=== PATIENT | female | born 1930 | race Caucasian/White ===

== ENCOUNTER 2016-12-20 15:22 | Inpatient (IN) | payer MEDICARE, BC ==
[2016-12-20 16:09] LABS: HEMATOCRIT 43.2 % (36.0-48.0); HEMOGLOBIN 14.8 g/dL (12.0-16.0); MEAN CELL VOLUME 87.6 fL (80.0-100.0); MEAN CORPUS. HGB CONCENTRATION 34.2 g/dL (32.0-36.0); MEAN PLATELET VOLUME 9.7 fL (7.4-10.4); PLATELET COUNT 216 X 10^3uL (130-440); RED BLOOD COUNT 4.93 X 10^6uL (4.20-6.10); RED CELL DISTRIBUTION WIDTH 12.7 % (11.5-14.5); WHITE BLOOD COUNT 6.4 X 10^3uL (3.9-10.7)
[2016-12-20 16:10] LABS: BLOOD UREA NITROGEN 19 mg/dL (7-17); CALCIUM 9.3 mg/dL (8.4-10.2); CHLORIDE 110 mmol/L (98-107); GLUCOSE 97 mg/dL (70-100); POTASSIUM 3.8 mmol/L (3.5-5.1); SODIUM 141 mmol/L (137-145)
[2016-12-20 16:11] LABS: INR 3.1
[2016-12-20] MEDS ORDERED: HOME MEDICATION LIST NEEDED 1 EA EACH MC ONE (16:16)
[2016-12-20] MEDS ORDERED: ACETAMINOPHEN 325 MG TABLET PO PRN (16:16)
--- NOTE | 2016-12-20 17:04 | ER PHYSICIAN DOCUMENTATION ---
Physician Documentation [facility] Name:Nicki Neri Age:86 yrs Sex:Female :1930 Arrival Date:12/20/2016 Time:15:22 Bed6 Private MD:Fiona Rondon ED, John Disposition: 12/20/16 16:14 Admit ordered for Christie Manning. Preliminary diagnosis is Femoral Neck Closed Fracture. - Bed requested for Medical/Surgical. - Condition is Fair. - Problem is new. - Symptoms are unchanged. 23 HR OBS Yes HPI: 12/20 15:54 This 86 yrs old Female presents to ER via EMS with complaints of Fall Injury, jm Hip Pain. 15:54 Details of fall: The patient fell from an upright position, while walking. Onset: The jm symptom(s)/episode began/occurred just prior to arrival. Associated injuries: The patient sustained right hip. Associated signs and symptoms: Loss of consciousness: the patient experienced no loss of consciousness. Severity of symptoms: At their worst the symptoms were mild. The patient has not experienced similar symptoms in the past. The patient has not recently seen a physician. Pt w mechanical fall after washing her windows and tripping on a hose. . Historical: - Allergies: No known drug Allergies; - Home Meds: 1. enalapril maleate 2.5 mg oral tab 1 tab 2 times per day 2. furosemide 20 mg oral tab 1 tab once a week 3. Synthroid 75 mcg oral tab 1 tab once daily 4. warfarin 5 mg oral tab 1 tab once daily 5. timolol maleate 0.25 % ophthalmic solg 1 drop once daily into both eyes 6. Xalatan 0.005 % ophthalmic drop 1 drop once daily in the evening - PMHx: TIA; Hypertension; ATRIAL FIB; hyperlipidemia; claustrophobia; diverticulosis; amnesia; cardiac dysrhythmias; bradycardia; - PSHx: Tonsillectomy; anal cyst Excision; vitrectomy; - Tetanus: < 10 years. - Ebola Screening: : Patient negative for fever greater than or equal to 101.5 degrees Fahrenheit, and additional compatible Ebola Virus Disease symptoms. Patient denies exposure to infectious person. Patient denies travel to an Ebola-affected area in the 21 days before illness onset. . - Immunization history: Pneumococcal vaccine is up to date, Flu Vaccine < 1 year. - Social history: Smoking status: Patient states former smoker of tobacco. ROS: 15:56 Cardiovascular: Negative for chest pain. jm 15:56 Respiratory: Negative for cough, shortness of breath. 15:56 Abdomen/GI: Negative for abdominal pain, nausea, vomiting. 15:56 MS/extremity: Positive for injury or acute deformity. 15:56 Skin: Negative for swelling. 15:56 Neuro: Negative for altered mental status. 15:56 All other systems are negative. Exam: 15:56 Constitutional: The patient appears alert, awake. jm 15:56 Eyes: Periorbital structures: appear normal, Conjunctiva: normal. 15:56 ENT: Mouth: is normal, Voice: is normal. 15:56 Neck: C-spine: appears grossly normal, Thyroid: appears normal. 15:56 Chest/axilla: Inspection: normal, Palpation: is normal. 15:56 Cardiovascular: Rate: normal, Rhythm: regular. 15:56 Respiratory: Respirations: normal, Breath sounds: are normal. 15:56 Abdomen/GI: Bowel sounds: normal, Palpation: abdomen is soft and non-tender. 15:56 Back: pain, is absent, vertebral tenderness, is not appreciated. 15:56 Musculoskeletal/extremity: Pulses: are normal with no appreciated deficits, Sensation intact. 15:56 Neuro: Mentation: is normal, Memory: is normal. 15:56 Psych: Behavior/mood is pleasant, cooperative, Affect is calm. Vital Signs: 15:37 BP 158 / 70; Pulse 69; Resp 16; Temp 98.7(TE); Pulse Ox 88% on R/A; Weight 89.81 kg; lp Height 5 ft. 10 in. (177.80 cm); Pain 1/10; 16:33 BP 163 / 87; Pulse 68; Resp 16; Pulse Ox 92% on 2 lpm NC; lp 15:37 Body Mass Index 28.41 (89.81 kg, 177.80 cm) lp MDM: 15:27 Patient medically screened. 15:57 Differential diagnosis: contusion, fracture. Data reviewed: vital signs, nurses notes, jm lab test result(s), EKG, radiologic studies, and as a result, I will admit patient, initiate a consult. Test interpretation: by ED physician or midlevel provider: plain radiologic studies. Counseling: I had a detailed discussion with the patient and/or guardian regarding: the historical points, exam findings, and any diagnostic results supporting the discharge/admit diagnosis, lab results, radiology results, the need for further work-up and treatment in the hospital. Physician consultation: Christie Manning MD regarding need to come to ED to see patient, and will see patient shortly, later today. 18:08 EKG attached 12/20 16:10 Order name: CBC WITHOUT A DIFFERENTIAL; Complete Time: 17:29 EDWI 12/20 16:12 Order name: BASIC METABOLIC PANEL; Complete Time: 17:29 EDWI 12/20 16:13 Order name: PROTIME/INR; Complete Time: 17:29 EDWI 12/20 19:05 Order name: HEPATIC PANEL [facility] 12/21 06:14 Order name: BASIC METABOLIC PANEL [facility] 12/21 06:20 Order name: PROTIME/INR [facility] 12/21 06:22 Order name: CBC AUTO DIF, MDIF/RMOR IF IND [facility] 12/21 16:06 Order name: INR W/ CAPI DRAW [facility] 12/21 22:37 Order name: INR W/ CAPI DRAW [facility] 12/22 06:06 Order name: PROTIME/INR [facility] 12/22 06:17 Order name: CBC AUTO DIF, MDIF/RMOR IF IND [facility] 12/22 06:49 Order name: COMPREHENSIVE METABOLIC PANEL [facility] 12/22 07:13 Order name: ABO GROUP [facility] 12/22 07:13 Order name: RH TYPE [facility] 12/22 07:13 Order name: ANTIBODY SCREEN [facility] 12/22 10:24 Order name: INR W/ CAPI DRAW [facility] 12/22 11:54 Order name: INR W/ CAPI DRAW [facility] 12/21 07:34 Order name: CHEST; SINGLE VIEW [id number] [facility] 12/21 07:34 Order name: HIP;W/PEL 2-[address] [place] [id number] [facility] 12/20 15:54 Order name: 12-lead EKG; Complete Time: 16:19 12/20 16:57 Order name: Holt; Complete Time: 16:57 rh Dispensed Medications: No medications were administered Signatures: Sade Loyola RN RN Morteza Lam MD MD Krystle Mark
--- NOTE | 2016-12-20 17:04 | ER NURSING DOCUMENTATION ---
Nurse's Notes [facility] Name:Nicki Neri Age:86 yrs Sex:Female :1930 Arrival Date:12/20/2016 Time:15:22 Bed6 Private MD:Fiona Rondon Diagnosis:Femoral Neck Closed Fracture Presentation: 12/20 15:29 Presenting complaint: Patient states: Fell after getting tangled in hose onto right lp hip. Transition of care: Home. Notified ED Physician of Jhonny Jones notified. 15:29 Acuity: JERONIMO 3 lp 15:29 Method Of Arrival: EMS: 410 lp Triage Assessment: 15:36 General: Appears in no apparent distress, Behavior is appropriate for age. Pain: lp Complains of pain in right hip Pain currently is 1 out of 10 on a pain scale. At worst was 6 out of 10 on a pain scale. Alleviated by rest. EENT: No deficits noted. Neuro: No deficits noted. Cardiovascular: No deficits noted. Respiratory: No deficits noted. GI: No deficits noted. : No deficits noted. Derm: No deficits noted. Musculoskeletal: Circulation, motion, and sensation intact Capillary refill < 3 seconds Range of motion limited in right hip. Historical: - Allergies: No known drug Allergies; - Home Meds: 1. enalapril maleate 2.5 mg oral tab 1 tab 2 times per day 2. furosemide 20 mg oral tab 1 tab once a week 3. Synthroid 75 mcg oral tab 1 tab once daily 4. warfarin 5 mg oral tab 1 tab once daily 5. timolol maleate 0.25 % ophthalmic solg 1 drop once daily into both eyes 6. Xalatan 0.005 % ophthalmic drop 1 drop once daily in the evening - PMHx: TIA; Hypertension; ATRIAL FIB; hyperlipidemia; claustrophobia; diverticulosis; amnesia; cardiac dysrhythmias; bradycardia; - PSHx: Tonsillectomy; anal cyst Excision; vitrectomy; - Tetanus: < 10 years. - Ebola Screening: : Patient negative for fever greater than or equal to 101.5 degrees Fahrenheit, and additional compatible Ebola Virus Disease symptoms. Patient denies exposure to infectious person. Patient denies travel to an Ebola-affected area in the 21 days before illness onset. . - Immunization history: Pneumococcal vaccine is up to date, Flu Vaccine < 1 year. - Social history: Smoking status: Patient states former smoker of tobacco. Screenin:38 Infectious Disease Risk None. Abuse screen: Denies threats or abuse. Denies injuries lp from another. Nutritional screening: No deficits noted. Assessment: 15:38 See Triage Assessment done by same RN. lp Vital Signs: 15:37 BP 158 / 70; Pulse 69; Resp 16; Temp 98.7(TE); Pulse Ox 88% on R/A; Weight 89.81 kg; lp Height 5 ft. 10 in. (177.80 cm); Pain 1/10; 16:33 BP 163 / 87; Pulse 68; Resp 16; Pulse Ox 92% on 2 lpm NC; lp 15:37 Body Mass Index 28.41 (89.81 kg, 177.80 cm) lp ED Course: 15:25 Patient arrived in ED. jl 15:25 Fiona Rondon MD is Private Physician. jl 15:27 Morteza Barry MD is Attending Physician. roxy 15:28 Sade Loyola RN is Primary Nurse. lp 15:29 Triage completed. lp 15:[address] Barry notified. lp 15:38 Valuables Remains with patient Patient has correct armband on for positive lp identification. Placed in gown. Bed in low position. Call light in reach. Side rails up X 1. 15:38 Inserted peripheral IV: 18 gauge in right antecubital area and blood collected. lp 16:14 Christie Manning MD is Admitting Physician. 16:14 EKG done. (by ED staff). Reviewed by Morteza Barry MD. 18:08 EKG attached lp Administered Medications: No medications were administered Outcome: 16:14 Decision to Admit by Provider. 17:02 Admitted to Med/surg accompanied by nurse. lp 17:02 Condition: stable 17:02 Report given to Report given to Anthony RN 17:02 Instructed on need to admit 17:03 Patient left the ED. lp Signatures: Sade Loyola, RN RN Morteza Lam MD MD jm Hofsess, Rachel rh Lietz, Jeff jl
[2016-12-20] MEDS: ONDANSETRON HCL 4 MG/2 ML VIAL IV PRN (18:19)
[2016-12-20] MEDS: MORPHINE SULFATE 2 MG/ML SYR IV PRN (18:19)
[2016-12-20] MEDS: NORMAL SALINE 1,000 ML IV SCH (18:19)
--- NOTE | 2016-12-20 18:23 | RADIOLOGY REPORT ---
A limited single portable view of the chest is compared with prior film dated . The heart and vessels are stable and unremarkable. The lung jeter are clear. No infiltrate, fluid or pneumothorax is seen. IMPRESSION: Stable, unremarkable single portable view of the chest. MTDD
--- NOTE | 2016-12-20 18:24 | RADIOLOGY REPORT ---
Three views of the right hip demonstrate acute right femoral neck fracture with superior displacement and external rotation. The joint space is maintained. No other abnormality is identified. IMPRESSION: Right femoral neck fracture. MTDD
[2016-12-20 19:03] LABS: BILIRUBIN, DIRECT 0.2 mg/dL (0.0-0.4); BILIRUBIN, TOTAL 0.8 mg/dL (0.2-1.3)
[2016-12-20] MEDS ORDERED: LATANOPROST 0.005% EACHEYE SCH (20:00)
[2016-12-20] MEDS ORDERED: ENALAPRIL MALEATE 5 MG TABLET PO SCH (21:00)
[2016-12-20] MEDS ORDERED: ATORVASTATIN CALCIUIM 40 MG TABLET PO SCH (21:00)
[2016-12-20] MEDS ORDERED: PILOCARPINE 1% OPHTHALMIC SCH (21:00)
[2016-12-20] MEDS: BRIMONIDINE 0.1% EACHEYE SCH (21:48)
[2016-12-20] MEDS: TIMOLOL 0.25% EACHEYE SCH (21:49)
[2016-12-20] MEDS: DORZOLAMIDE 2% OPHTHALMIC SCH (21:49)
--- NOTE | 2016-12-21 04:41 | HISTORY & PHYSICAL ---
DATE OF ADMISSION: 12/20/16 PRIMARY CARE PROVIDER: Dr. Fiona Rondon. CHIEF COMPLAINT: Fall. HISTORY OF PRESENT ILLNESS: This is an 86-year-old white female with multiple medical problems, who fell while washing her windows at home. She tripped on a hose when she was backing up wearing sandals and landed directly onto her right hip. She broke her fall with her right forearm but did not suffer any other injuries. No closed head injury, no loss of consciousness. She states that she was only able to barely move her right lower extremity and was eventually able to sit up and then call for help. She was on the ground for approximately 45-60 minutes. She was brought in by ambulance. The pain of her right lower extremity is described as a dull ache as if she had some muscles being pulled. She did not have any precedent chest pain, shortness of breath, or palpitations. Later during her history, she developed significant right hip pain with associated nausea. Pain and antinausea medications were given. REVIEW OF SYSTEMS: No fevers, chills or sweats. Chronic runny nose. No postnasal drainage. Mild cough. No palpitations. No chest pain or shortness of breath. No history of congestive heart failure. She has chronic left ankle pain secondary to multiple sprains. She generally wears support stockings. No dysuria, no hematuria, no bloody stools. No headaches. She does have a history of glaucoma and takes multiple eye drops. She has the beginnings of macular degeneration. 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 No abdominal pain. No vomiting. No diarrhea. She did have a bowel movement today. She had a fall in her garage 2-3 months ago with no injuries. PAST MEDICAL HISTORY 1. Hypertension. 2. History of TIAs in 1995 and 1999. 3. Atrial fibrillation with a controlled ventricular response. Sick sinus syndrome. 4. Hypothyroidism. 5. Hyperlipidemia. 6. Ductal carcinoma in situ of breast. 7. Osteophyte fracture, left first metacarpal with associated severe degenerative arthritis. 8. Glaucoma. 9. Anxiety disorder with claustrophobia. 10. History of transient global amnesia. 11. Microscopic hematuria. 12. Venous insufficiency. 13. Osteopenia. 14. History of polymyalgia rheumatica. 15. Chronic renal insufficiency. PAST SURGICAL HISTORY 1. Vitrectomy after failed laser treatment for retinal lesion, left eye in 1994. 2. Anal cyst excision. 3. Tonsillectomy. MEDICATIONS Enalapril 2.5 mg twice daily. Furosemide 20 mg weekly. Calcium with vitamin D daily. Synthroid 75 mcg daily. Coumadin 5 mg daily except 7.5 mg Sunday, Sunday, Sunday. Glucosamine chondroitin complex. Timolol maleate 0.25% one drop daily. Xalatan 0.05% as directed daily. Alphagan P as directed daily. Atorvastatin 40 mg daily. Coombs concentrate 2 capsules daily. Lantanoprost 0.005% one drop daily. PreserVision areds 2 one tablet twice daily. Azopt 1% suspension 3 drops daily. Pilocar 4 times daily. ALLERGIES: Bee sting. Nonsteroidal anti-inflammatories caused increased LFTs. Preservatives in eye drops causing burning and irritation. Sulfa: question prior allergy. SOCIAL HISTORY: She is now . She lives alone. Rare alcohol use. No drug use. She has never been a smoker. She has a daughter Kathy who lives in [place]. She is full cor. FAMILY HISTORY: Her dad at the age of 84, had a cerebrovascular accident at the age of 67 and had an underlying history of hypertension and congestive heart failure. Mom at the age of 62 with pancreatic cancer. Sister with a history of colon cancer. She also has an unusual form of multiple sclerosis and is wheelchair bound. LABORATORY DATA: CBC shows a white count of 6.4, hemoglobin 14.8, hematocrit 43.2, platelets 216. Basic metabolic panel: Chloride 110, bicarbonate 21, BUN 19, otherwise normal. Protime is 37.1 and INR is 3.1. EKG: Shows normal sinus rhythm, bradycardia, heart rate of 55, left axis deviation, left anterior fascicular block, no acute ST-T wave changes. CHEST X-RAY: Done in the emergency room; will review. HIP X-RAY: Shows right femoral neck closed fracture. PHYSICAL EXAMINATION VITAL SIGNS: In the emergency room temperature is 98.7, pulse 69, respiratory rate 16, blood pressure 158/70, 88% on room air and 92% on 2 liters per nasal cannula. GENERAL: This is a very pleasant female who is initially in no apparent distress. She later developed significant right lower extremity pain. HEENT: Her sclerae are clear. Her pupils are equal, round, reactive to light. Her extraocular movements are intact. Her nares are clear. Her oropharynx is clear. NECK: Her neck is obese and difficult to assess JVD. No carotid bruits. No lymphadenopathy. LUNGS: Fairly good aeration anterolaterally. I was not able to sit the patient up to listen posteriorly. HEART: Bradycardic, regular rhythm without any murmurs, rubs or gallops. ABDOMEN: Obese, soft, nontender, nondistended with good bowel sounds and no mass or hepatosplenomegaly. EXTREMITIES: Right lower extremity is externally rotated and shortened. She has trace to 1+ pedal and pretibial edema with good dorsalis pedis and posterior tibial pulses bilaterally. NEUROLOGIC: Alert and oriented times 3. Cranial nerves 2 through 12 are grossly intact without any focal deficits. Her motor, sensation and DTRs are intact. However, motor and DTRs are not checked of right lower extremity secondary to fracture. ASSESSMENT: This is an 86-year-old female who presents after a fall with femoral neck closed fracture. PLAN 1. Fluids, electrolytes and nutrition. Will keep n.p.o. after midnight for surgery tomorrow. Her electrolytes are stable. IV fluids. Antiemetics for nausea. 2. Cardiovascular. The patient with significant cardiac history including sick sinus syndrome with both atrial fibrillation and bradycardia. She is currently being anticoagulated with a therapeutic INR. Her EKG does not show any acute changes. She also has a history of hypertension, hyperlipidemia and prior TIA. Her EKG is without acute changes. I appreciate anesthesia input and I have spoken with Elisa Bolanos on the phone. 3. Respiratory. The patient without any known underlying pulmonary issues. She is a lifetime nonsmoker. I will review the chest x-ray. She is currently requiring 2 liters of oxygen. 4. Renal. The patient with history of renal insufficiency. However, her creatinine is stable today at 1.0. 5. Infectious disease. Will check urinalysis and urine culture. 6. Disposition. The patient is admitted for surgical repair of femoral fracture. She is medically cleared. She is a full cor status. Anticipate that she will need a swing bed stay after her operation. cc: Dr. Fiona Rondon; Dr. Camron Iqbal. [facility]uben
[2016-12-21] MEDS: MORPHINE SULFATE 2 MG/ML SYR IV PRN ×3 (06:00→16:00)
[2016-12-21 06:09] LABS: BLOOD UREA NITROGEN 14 mg/dL (7-17); CALCIUM 8.6 mg/dL (8.4-10.2); CHLORIDE 110 mmol/L (98-107); GLUCOSE 95 mg/dL (70-100); POTASSIUM 3.8 mmol/L (3.5-5.1); SODIUM 140 mmol/L (137-145)
[2016-12-21] MEDS: BRIMONIDINE 0.1% EACHEYE SCH ×3 (06:10→20:43)
[2016-12-21 06:14] LABS: INR 3.2
[2016-12-21 06:17] LABS: BASOPHILS 0.2 % (0.0-2.0); EOSINOPHILS 3.5 % (0.0-6.0); EOSINOPHILS# 0.3 X 10^3uL (0.0-0.4); HEMATOCRIT 39.3 % (36.0-48.0); HEMOGLOBIN 13.6 g/dL (12.0-16.0); LYMPHOCYTES# 0.6 X 10^3uL (0.8-3.8); MEAN CELL VOLUME 87.5 fL (80.0-100.0); MEAN CORPUS. HGB CONCENTRATION 34.5 g/dL (32.0-36.0); MEAN CORPUSCULAR HEMOGLOBIN 30.2 pg (29.0-35.0); MEAN PLATELET VOLUME 9.3 fL (7.4-10.4); MONOCYTES 7.4 % (2.0-10.0); MONOCYTES# 0.5 X 10^3uL (0.2-1.0); NEUTROPHILS 79.9 % (54.0-75.0); NEUTROPHILS# 5.8 X 10^3uL (2.6-6.7); PLATELET COUNT 156 X 10^3uL (130-440); RED BLOOD COUNT 4.49 X 10^6uL (4.20-6.10); RED CELL DISTRIBUTION WIDTH 12.8 % (11.5-14.5); WHITE BLOOD COUNT 7.2 X 10^3uL (3.9-10.7)
[2016-12-21] MEDS ORDERED: LEVOTHYROXINE 75 MCG TABLET PO SCH ×2 (06:30→09:00)
[2016-12-21] MEDS ORDERED: BRINZOLAMIDE 1% OPHTHALMIC SCH (09:00)
[2016-12-21] MEDS ORDERED: TIMOLOL 0.5% EACHEYE SCH (09:00)
[2016-12-21] MEDS ORDERED: BRIMONIDINE 0.1% OPHTHALMIC SCH (09:00)
[2016-12-21] MEDS ORDERED: FUROSEMIDE 20 MG TABLET PO SCH (09:00)
[2016-12-21] MEDS: POTASSIUM CHLORIDE ER 20 MEQ TABLET PO SCH (09:09)
[2016-12-21] MEDS: TIMOLOL 0.25% EACHEYE SCH (09:11)
[2016-12-21] MEDS: FUROSEMIDE 20 MG TABLET PO SCH (09:11)
[2016-12-21] MEDS ORDERED: PHYTONADIONE 10 MG/ML AMP PO SCH (10:00)
[2016-12-21] MEDS ORDERED: NORMAL SALINE 1,000 ML IV ONE (10:19)
[2016-12-21] MEDS: ATORVASTATIN CALCIUIM 40 MG TABLET PO SCH (12:10)
[2016-12-21] MEDS: ENALAPRIL MALEATE 5 MG TABLET PO SCH ×2 (12:11→20:43)
[2016-12-21] MEDS ORDERED: PHYTONADIONE 10 MG/ML AMP SUBCUT SCH (12:30)
--- NOTE | 2016-12-21 12:30 | PROGRESS NOTE: IM APSO ---
Assessment and Plan - Date of Encounter Date of Encounter: 12/21/16 (1) Fracture of femoral neck, right, closed Status: Acute Assessment and plan: Fall 12/20 with subsequent fracture of femoral neck needing surgical repair. Due to elevated INR (coumadin therapy for afib) will delay surgery until tomorrow with goal for reversing warfarin. Currently pain controlled and overall comfortable. Appreciate management by Dr. Iqbal. Patient was cleared for surgery by both anesthesia and Dr. Manning on 12/20. Due to age and living along- anticipate may need additional rehab (daughter will be coming to stay with mother for 2 months) Current Visit: Yes (2) Supratherapeutic INR Status: Acute Assessment and plan: On chronic anticoagulation related to atrial fibrillation/sick sinus syndrome. INR was 3.2 today despite holding coumadin last night. Will give SC Vitamin K for goals of reversal and repeat INR to monitor. Surgical cut off is 1.3 as anticipating spinal block. Will give dose of lovenox tonight ppx during bridge but need to hold all anticoagulation 12 hours from surgery, restart after. Today INR has gone from 3.2 to 3.3 despite the administration of 4mg SC Vitamin K. Will repeat with oral dose of Vitamin K and follow up INR 4 hours later. Current Visit: Yes (3) Afib Status: Chronic Assessment and plan: Currently stable and rate controlled. Is managed by cardiology with recent visit in October. Restart anticoagulation once able with surgery. Current Visit: Yes (4) Sick sinus syndrome Status: Chronic Assessment and plan: Currently stable, recent cardiology visit 10/2016. If any concerns may ask for consultation after surgery tomorrow when cardiology is in house. Current Visit: Yes (5) Hypertension Status: Chronic Assessment and plan: Stable, home medications ordered. Will monitor for hypotension with pain medication needs Current Visit: Yes (6) Hypothyroid Status: Chronic Assessment and plan: continue home dose medication Current Visit: Yes (7) Hyperlipemia Status: Chronic Assessment and plan: Continue home medication Current Visit: Yes (8) Glaucoma Status: Chronic Assessment and plan: Patient feels her eyes are her most significant health issues currently. Has partial site in one eye and normal vision in other. Will order her home eye drops for ongoing treatment. Current Visit: Yes (9) Anxiety Status: Acute Current Visit: Yes (10) Chronic renal insufficiency Status: Chronic Assessment and plan: Stable kidney function currently. continue to monitor with medication needs/ surgery Current Visit: Yes (11) Hypoxia Status: Acute Assessment and plan: Likely combination of narcotic use/decreased mobility/mouth breathing when sleeping- will continue supplemental oxygen as needed (specifically at night) as well as teach IS prior to surgery. Current Visit: Yes - Time Spent With Patient Total time spent with greater than 50% in coordination of care (as documented) at patient's floor/unit and/or counseling patient: Greater than 35 minutes Estimated anticipated discharge: 4 days or more IM: PN Subjective General: no fatigue, no good appetite, no fever, no chills HEENT: no headache, no sore throat Cardiovascular: no chest pain, no chest pressure, no palpitations, no dizziness Respiratory: other (admits to mouth breathing at night), no cough, no SOB Gastrointestinal: no abdominal pain, no vomiting, no constipation Genitourinary: no dysuria Musculoskeletal: pain (right leg), weakness Neurological: no headache IM: PN Objective Exam - I&O/Vital Signs I&O: Intake & Output 12/20/16 12/21/16 12/21/16 21:59 05:59 13:59 Intake Total 50 Output Total 200 750 Balance -150 -750 Weight 90.945 kg Intake: Oral 50 Output: Urine 200 750 Other: Urine Appearance Clear Urine Color Yellow Pale Yellow Voiding Method Indwelling Catheter Indwelling Catheter Vital Signs: Last Vital Signs Temp 37.1 C 12/21/16 11:00 Pulse 61 12/21/16 11:00 Resp 18 12/21/16 11:00 BP 146/88 12/21/16 11:00 Pulse Ox 90 12/21/16 12:03 Oxygen Flow Rate 2 Oxygen Delivery Method Nasal Cannula - Constitutional General appearance: Present: cooperative. Absent: acute distress - Head Head exam: Present: atraumatic, normal inspection, normocephalic - Eye Eye exam: Present: EOMI, normal appearance, other (glasses). Absent: conjunctival injection - ENT ENT exam: Present: mucous membranes moist, normal oropharynx - Neck Neck exam: Present: normal inspection. Absent: tenderness - Respiratory Respiratory exam: Present: CTAB. Absent: accessory muscle use - Cardiovascular Cardiovascular exam: Present: RRR, systolic murmur - GI/Abdominal GI/Abdominal exam: Present: soft. Absent: tenderness - Extremities Exam Extremities exam: Present: edema (bilateral but left (noninjured side) worse than right (chronic per patient)), tenderness (hip/femur). Absent: calf tenderness - Neurological Exam Neurological exam: Present: alert, CN II-XII intact, oriented X3 - Psychiatric Psychiatric exam: Present: normal affect, normal mood - Allied Health Notes Allied health notes reviewed: nursing - Lab Labs: Laboratory Last Values WBC 7.2 X 10^3uL (3.9-10.7) 12/21/16 05:05 RBC 4.49 X 10^6uL (4.20-6.10) 12/21/16 05:05 Hgb 13.6 g/dL (12.0-16.0) 12/21/16 05:05 Hct 39.3 % (36.0-48.0) 12/21/16 05:05 MCV 87.5 fL (80.0-100.0) 12/21/16 05:05 MCH 30.2 pg (29.0-35.0) 12/21/16 05:05 MCHC 34.5 g/dL (32.0-36.0) 12/21/16 05:05 RDW 12.8 % (11.5-14.5) 12/21/16 05:05 Plt Count 156 X 10^3uL (130-440) 12/21/16 05:05 MPV 9.3 fL (7.4-10.4) 12/21/16 05:05 Neutrophils % 79.9 % (54.0-75.0) H 12/21/16 05:05 Lymphocytes % 9.0 % (20.0-40.0) L 12/21/16 05:05 Eosinophils % 3.5 % (0.0-6.0) 12/21/16 05:05 Basophils % 0.2 % (0.0-2.0) 12/21/16 05:05 Neutrophils # 5.8 X 10^3uL (2.6-6.7) 12/21/16 05:05 Lymphocytes # 0.6 X 10^3uL (0.8-3.8) L 12/21/16 05:05 Monocytes 7.4 % (2.0-10.0) 12/21/16 05:05 Monocytes # 0.5 X 10^3uL (0.2-1.0) 12/21/16 05:05 Eosinophils # 0.3 X 10^3uL (0.0-0.4) 12/21/16 05:05 Basophils # 0.0 X 10^3uL (0.0-0.1) 12/21/16 05:05 PT 37.4 sec (13.0-16.6) H 12/21/16 05:05 INR 3.2 12/21/16 05:05 Sodium 140 mmol/L (137-145) 12/21/16 05:05 Potassium 3.8 mmol/L (3.5-5.1) 12/21/16 05:05 Chloride 110 mmol/L (98-107) H 12/21/16 05:05 Carbon Dioxide 24 mmol/L (22-30) 12/21/16 05:05 BUN 14 mg/dL (7-17) 12/21/16 05:05 Creatinine 0.8 mg/dL (0.5-1.0) 12/21/16 05:05 GFR Calculation Not Reportable 12/21/16 05:05 Glucose 95 mg/dL (70-100) 12/21/16 05:05 Calcium 8.6 mg/dL (8.4-10.2) 12/21/16 05:05 Total Bilirubin 0.8 mg/dL (0.2-1.3) 12/20/16 18:53 Direct Bilirubin 0.2 mg/dL (0.0-0.4) 12/20/16 18:53 AST 28 U/L (14-36) 12/20/16 18:53 ALT 36 U/L (9-52) 12/20/16 18:53 Alkaline Phosphatase 73 U/L (38-126) 12/20/16 18:53 Total Protein 7.0 g/dL (6.3-8.2) 12/20/16 18:53 Albumin 4.0 g/dL (3.5-5.0) 12/20/16 18:53 Impressions: INR 3.2- surgery delayed until can decrease INR Quality Questions - VTE Prophylaxis Assessment VTE Present on Admission?: No Patient at risk for venous thromboembolism?: Yes VTE Risk Level: High Risk Pharmaceutical VTE prophylaxis contraindication reason: N/A- VTE prophylaxsis ordered Mechanical VTE prophylaxis contraindication reason: N/A- VTE prophylaxsis ordered (5) Hypertension Qualifiers: Hypertension type: essential hypertension Qualified Code(s): I10 - Essential (primary) hypertension (8) Glaucoma Qualifiers: Laterality: bilateral
[2016-12-21] MEDS: PILOCARPINE HCL OPHTHALMIC SCH ×4 (12:57→20:43)
--- NOTE | 2016-12-21 13:11 | CONSULTATION ---
DATE OF CONSULTATION: 12/21/16 REFERRING PHYSICIAN: Dr. Barry. CHIEF COMPLAINT: Broken right hip. Dear Dr. Barry, Thank you for asking me to evaluate this patient. As you know she is an 86-year -old female who was working on her patio yesterday when she tripped over a hose and landed on her right side. She had immediate inability to ambulate with pain in the right hip area, and was later brought into the emergency department where radiographs revealed findings consistent with a displaced femoral neck fracture. She is therefore admitted for further management of her injury. She denies any other injuries associated with her fall. PAST MEDICAL HISTORY: Her past medical history is otherwise remarkable for 1. Atrial fibrillation. 2. Previous TIA although it has been many years. 3. Hyperlipidemia. 4. Hypothyroidism. 5. Chronic low back pain. MEDICATIONS Enalapril. Lasix. Calcium supplements. Synthroid. Coumadin. Timolol. Xalatan. ALLERGIES: The patient cannot take NSAIDs, and she is also allergic to sulfa and bee stings. FAMILY HISTORY: Noncontributory. SOCIAL HISTORY: The patient lives independently and is a nonsmoker. She reports rare alcohol use. REVIEW OF SYSTEMS: Review of systems is negative for any chest pain or shortness of breath. Likewise she did not have any history of syncopal or near syncopal episode associated with her fall. The review of systems is otherwise noncontributory. PHYSICAL EXAMINATION GENERAL: A well-appearing senior female in minimal distress secondary to pain, but alert and oriented times 3. RIGHT LOWER EXTREMITY: Physical examination of the right lower extremity reveals that she is slightly shortened and externally rotated. She is tender to palpation about the hip although we were very gentle with that part of the exam. She does have sensation intact throughout to light touch and a 2+ dorsalis pedis pulse. X-RAYS: Plain radiographs reveal a midcervical fracture of the right femoral neck, with displacement of the fracture consistent with a Garden IV fracture. IMPRESSION: Right femoral neck fracture as noted above. PLAN/RECOMMENDATIONS: We discussed the treatment and management of this injury with the patient. Clearly the standard of care for this injury will be arthroplasty of the right hip. Given her age and health we would plan on hemiarthroplasty of the right hip. Her INR is elevated, and so we will have to hold off on her surgery until after we can bring her INR to a safe level. We have discussed the operation, risks and indications with the patient. The risks of the procedure include but are not limited to blood vessel or nerve injury, infection, persistent pain or stiffness in the hip, dislocation of the hip, premature failure or loosening of the implants or deep venous thrombosis which could potentially lead to a fatal pulmonary embolism. The patient has acknowledged risks and desires to proceed as planned. Once her INR has dropped below 1.4, we will proceed with hemiarthroplasty of the right hip. Thank you again for asking me to evaluate this patient. Dr. Jhonny IBARRA
[2016-12-21] MEDS ORDERED: PHYTONADIONE 10 MG/ML AMP PO ONE ×2 (17:32→22:40)
[2016-12-21] MEDS ORDERED: PHYTONADIONE 10 MG/ML AMP ONE (18:39)
[2016-12-21] MEDS: DORZOLAMIDE 2% OPHTHALMIC SCH (18:45)
[2016-12-21] MEDS ORDERED: TRANEXAMIC ACID 1,000 MG in NORMAL SALINE 100 ML IV SCH (19:00)
[2016-12-21] MEDS ORDERED: LATANOPROST 0.005% EACHEYE SCH ×2 (21:00)
[2016-12-21] MEDS ORDERED: ENOXAPARIN SODIUM 30 MG/0.3 ML SYR SUBCUT SCH (21:00)
[2016-12-22] MEDS: NORMAL SALINE 1,000 ML IV SCH ×2 (01:50→04:30)
[2016-12-22] MEDS: ONDANSETRON HCL 4 MG/2 ML VIAL IV PRN (01:50)
[2016-12-22] MEDS: MORPHINE SULFATE 2 MG/ML SYR IV PRN (02:14)
[2016-12-22] MEDS ORDERED: PHYTONADIONE 10 MG/ML AMP ONE (03:37)
[2016-12-22 06:03] LABS: INR 1.7
[2016-12-22 06:13] LABS: BASOPHILS 0.4 % (0.0-2.0); EOSINOPHILS# 0.2 X 10^3uL (0.0-0.4); HEMATOCRIT 38.7 % (36.0-48.0); HEMOGLOBIN 13.3 g/dL (12.0-16.0); LYMPHOCYTES 5.8 % (20.0-40.0); LYMPHOCYTES# 0.5 X 10^3uL (0.8-3.8); MEAN CELL VOLUME 88.1 fL (80.0-100.0); MEAN CORPUS. HGB CONCENTRATION 34.3 g/dL (32.0-36.0); MEAN CORPUSCULAR HEMOGLOBIN 30.2 pg (29.0-35.0); MEAN PLATELET VOLUME 8.7 fL (7.4-10.4); MONOCYTES 8.1 % (2.0-10.0); MONOCYTES# 0.7 X 10^3uL (0.2-1.0); NEUTROPHILS 82.7 % (54.0-75.0); NEUTROPHILS# 6.7 X 10^3uL (2.6-6.7); PLATELET COUNT 143 X 10^3uL (130-440); RED BLOOD COUNT 4.39 X 10^6uL (4.20-6.10); WHITE BLOOD COUNT 8.1 X 10^3uL (3.9-10.7)
[2016-12-22] MEDS ORDERED: PHYTONADIONE 10 MG/ML AMP PO ONE (06:24)
[2016-12-22] MEDS ORDERED: LEVOTHYROXINE 75 MCG TABLET PO SCH (06:30)
[2016-12-22 06:47] LABS: A/G RATIO 1.1; ALBUMIN 3.2 g/dL (3.5-5.0); ALKALINE PHOSPHATASE 58 U/L (38-126); ALT 32 U/L (9-52); AST 21 U/L (14-36); BILIRUBIN, TOTAL 1.1 mg/dL (0.2-1.3); BLOOD UREA NITROGEN 12 mg/dL (7-17); CALCIUM 8.3 mg/dL (8.4-10.2); CHLORIDE 106 mmol/L (98-107); GLUCOSE 99 mg/dL (70-100); POTASSIUM 3.9 mmol/L (3.5-5.1); SODIUM 137 mmol/L (137-145)
[2016-12-22] MEDS ORDERED: BISACODYL 5 MG TABLET PO PRN ×2 (06:48→13:43)
[2016-12-22 07:12] LABS: ABO GROUP TYPE A; ANTIBODY SCREEN NEGATIVE; RH TYPE NEGATIVE
--- NOTE | 2016-12-22 07:55 | PROGRESS NOTE: IM APSO ---
Assessment and Plan - Date of Encounter Date of Encounter: 12/22/16 (1) Fracture of femoral neck, right, closed Status: Acute Assessment and plan: Fall 12/20 with subsequent fracture of femoral neck needing surgical repair. Due to elevated INR (coumadin therapy for afib) will delay surgery until later today with goal for reversing warfarin. Currently pain controlled and overall comfortable. Appreciate management by Dr. Iqbal. Patient was cleared for surgery by both anesthesia and Dr. Manning on 12/20. Patient is high risk related to her underlying cardiovascular issues (although currently stable). Due to age and living alone- anticipate may need additional rehab (daughter will be coming to stay with mother for 2 months) Current Visit: Yes (2) Supratherapeutic INR Status: Acute Assessment and plan: On chronic anticoagulation related to atrial fibrillation/sick sinus syndrome. INR was 3.2 today despite holding coumadin last night. Patient has received 1 dose of subcutaneous vitamin K and 3 oral doses at this time. Most recent INR 1.7 and likely to return to normal with last dose. Repeat INR ordered for 10am and surgery planned for noon. Did not give lovenox last night as INR was still 2.4. Will need to be restarted on anticoagulation once approved by surgical team. Current Visit: Yes (3) Afib Status: Chronic Assessment and plan: Currently stable and rate controlled. Is managed by cardiology with recent visit in October. Restart anticoagulation once able with surgery. Current Visit: Yes (4) Sick sinus syndrome Status: Chronic Assessment and plan: Currently stable, recent cardiology visit 10/2016. If any concerns may ask for consultation after surgery today when cardiology is in house. Current Visit: Yes (5) Hypertension Status: Chronic Assessment and plan: Slight elevation but overall Stable, home medications ordered. Will monitor for hypotension with pain medication needs Current Visit: Yes (6) Hypothyroid Status: Chronic Assessment and plan: continue home dose medication Current Visit: Yes (7) Hyperlipemia Status: Chronic Assessment and plan: Continue home medication Current Visit: Yes (8) Glaucoma Status: Chronic Assessment and plan: Patient feels her eyes are her most significant health issues currently. Has partial site in one eye and normal vision in other. Will order her home eye drops for ongoing treatment. Current Visit: Yes (9) Anxiety Status: Acute Assessment and plan: Doing well thus far with hospitalization, continue to monitor, especially for any worsening in symptoms if needing increased pain medications Current Visit: Yes (10) Chronic renal insufficiency Status: Chronic Assessment and plan: Stable kidney function currently. continue to monitor with medication needs/ surgery Current Visit: Yes (11) Hypoxia Status: Acute Assessment and plan: Likely combination of narcotic use/decreased mobility/mouth breathing when sleeping- will continue supplemental oxygen as needed (specifically at night) as well as teach IS for use pre and post surgery. Current Visit: Yes - Time Spent With Patient Total time spent with greater than 50% in coordination of care (as documented) at patient's floor/unit and/or counseling patient: Greater than 35 minutes Estimated anticipated discharge: 3 days or more IM: PN Subjective Interval history: Continues to do well with intermittent complaints of vague discomfort. Did have sensation needed to have BM but was just gas and symptoms improved. Understands her INR is 1.7 this am and still needs to be lower prior to surgery. No new complaints today General: no fatigue, no good appetite, no fever, no chills HEENT: no headache, no sore throat Cardiovascular: no chest pain, no chest pressure, no palpitations, no dizziness Respiratory: other (admits to mouth breathing at night), no cough, no SOB Gastrointestinal: no abdominal pain, no vomiting, no constipation Genitourinary: no dysuria Musculoskeletal: pain (right leg), weakness Neurological: no headache IM: PN Objective Exam - I&O/Vital Signs I&O: Intake & Output 12/21/16 12/22/16 12/22/16 21:59 05:59 13:59 Intake Total 1620 920 Output Total 1675 Balance -55 920 Intake: IV 1000 720 Right Antecubital 1000 720 Oral 620 200 Output: Urine 1675 Other: Urine Appearance Clear Urine Color Yellow Voiding Method Indwelling Catheter Vital Signs: Last Vital Signs Temp 36.9 C 12/22/16 06:33 Pulse 61 12/22/16 06:33 Resp 16 12/22/16 06:33 BP 145/64 12/22/16 06:33 Pulse Ox 95 12/22/16 06:33 Oxygen Flow Rate 5 Oxygen Delivery Method Mask - Constitutional General appearance: Present: cooperative. Absent: acute distress - Head Head exam: Present: atraumatic, normal inspection, normocephalic - Eye Eye exam: Present: EOMI, normal appearance, other (glasses). Absent: conjunctival injection - ENT ENT exam: Present: mucous membranes moist, normal oropharynx - Neck Neck exam: Present: normal inspection. Absent: tenderness - Respiratory Respiratory exam: Present: CTAB. Absent: accessory muscle use - Cardiovascular Cardiovascular exam: Present: RRR, systolic murmur - GI/Abdominal GI/Abdominal exam: Present: soft. Absent: tenderness - Extremities Exam Extremities exam: Present: edema (bilateral but left (noninjured side) worse than right (chronic per patient)), tenderness (hip/femur). Absent: calf tenderness - Neurological Exam Neurological exam: Present: alert, CN II-XII intact, oriented X3 - Psychiatric Psychiatric exam: Present: normal affect, normal mood - Allied Health Notes Allied health notes reviewed: nursing - Lab Labs: Laboratory Last Values WBC 8.1 X 10^3uL (3.9-10.7) 12/22/16 05:00 RBC 4.39 X 10^6uL (4.20-6.10) 12/22/16 05:00 Hgb 13.3 g/dL (12.0-16.0) 12/22/16 05:00 Hct 38.7 % (36.0-48.0) 12/22/16 05:00 MCV 88.1 fL (80.0-100.0) 12/22/16 05:00 MCH 30.2 pg (29.0-35.0) 12/22/16 05:00 MCHC 34.3 g/dL (32.0-36.0) 12/22/16 05:00 RDW 13.0 % (11.5-14.5) 12/22/16 05:00 Plt Count 143 X 10^3uL (130-440) 12/22/16 05:00 MPV 8.7 fL (7.4-10.4) 12/22/16 05:00 Neutrophils % 82.7 % (54.0-75.0) H 12/22/16 05:00 Lymphocytes % 5.8 % (20.0-40.0) L 12/22/16 05:00 Eosinophils % 3.0 % (0.0-6.0) 12/22/16 05:00 Basophils % 0.4 % (0.0-2.0) 12/22/16 05:00 Neutrophils # 6.7 X 10^3uL (2.6-6.7) 12/22/16 05:00 Lymphocytes # 0.5 X 10^3uL (0.8-3.8) L 12/22/16 05:00 Monocytes 8.1 % (2.0-10.0) 12/22/16 05:00 Monocytes # 0.7 X 10^3uL (0.2-1.0) 12/22/16 05:00 Eosinophils # 0.2 X 10^3uL (0.0-0.4) 12/22/16 05:00 Basophils # 0.0 X 10^3uL (0.0-0.1) 12/22/16 05:00 PT 21.4 sec (13.0-16.6) H 12/22/16 05:00 Capillary INR 2.4 (0.8-1.2) H 12/21/16 22:20 INR 1.7 D 12/22/16 05:00 Sodium 137 mmol/L (137-145) 12/22/16 05:00 Potassium 3.9 mmol/L (3.5-5.1) 12/22/16 05:00 Chloride 106 mmol/L (98-107) 12/22/16 05:00 Carbon Dioxide 26 mmol/L (22-30) 12/22/16 05:00 BUN 12 mg/dL (7-17) 12/22/16 05:00 Creatinine 0.9 mg/dL (0.5-1.0) 12/22/16 05:00 GFR Calculation Not Reportable 12/22/16 05:00 Glucose 99 mg/dL (70-100) 12/22/16 05:00 Calcium 8.3 mg/dL (8.4-10.2) L 12/22/16 05:00 Total Bilirubin 1.1 mg/dL (0.2-1.3) 12/22/16 05:00 Direct Bilirubin 0.2 mg/dL (0.0-0.4) 12/20/16 18:53 AST 21 U/L (14-36) 12/22/16 05:00 ALT 32 U/L (9-52) 12/22/16 05:00 Alkaline Phosphatase 58 U/L (38-126) 12/22/16 05:00 Total Protein 6.0 g/dL (6.3-8.2) L 12/22/16 05:00 Albumin 3.2 g/dL (3.5-5.0) L 12/22/16 05:00 Albumin/Globulin Ratio 1.1 12/22/16 05:00 ABO Group Type a 12/22/16 05:00 Rh Factor Negative 12/22/16 05:00 Antibody Screen Negative 12/22/16 05:00 Quality Questions - VTE Prophylaxis Assessment VTE Present on Admission?: No Patient at risk for venous thromboembolism?: No VTE Risk Level: High Risk Pharmaceutical VTE prophylaxis contraindication reason: N/A- VTE prophylaxsis ordered Mechanical VTE prophylaxis contraindication reason: N/A- VTE prophylaxsis ordered (5) Hypertension Qualifiers: Hypertension type: essential hypertension Qualified Code(s): I10 - Essential (primary) hypertension (8) Glaucoma Qualifiers: Laterality: bilateral
[2016-12-22] MEDS: POTASSIUM CHLORIDE ER 20 MEQ TABLET PO SCH (08:37)
[2016-12-22] MEDS: ATORVASTATIN CALCIUIM 40 MG TABLET PO SCH (08:37)
[2016-12-22] MEDS: FUROSEMIDE 20 MG TABLET PO SCH (08:37)
[2016-12-22] MEDS: ENALAPRIL MALEATE 5 MG TABLET PO SCH (08:38)
[2016-12-22] MEDS ORDERED: AZOPT 1% EACHEYE SCH ×3 (09:00→15:00)
[2016-12-22] MEDS ORDERED: TIMOLOL 0.5% EACHEYE SCH ×4 (09:00→21:00)
[2016-12-22] MEDS: PILOCARPINE HCL OPHTHALMIC SCH (09:05)
[2016-12-22] MEDS: BRIMONIDINE 0.1% EACHEYE SCH ×3 (09:07→20:46)
[2016-12-22] MEDS ORDERED: ceFAZolin/DEXTROSE,ISO 2 GM/50 ML PIGGYBACK IV PRN ×2 (11:45→13:43)
[2016-12-22] MEDS ORDERED: MIDAZOLAM HCL 2 MG/2 ML SYR IV SCH (12:00)
[2016-12-22] MEDS ORDERED: PILOCARPINE HCL OPHTHALMIC SCH ×3 (12:00→18:00)
[2016-12-22] MEDS ORDERED: BRINZOLAMIDE 1% OPHTHALMIC SCH (12:00)
[2016-12-22] MEDS ORDERED: TIMOLOL 0.5% OPHTHALMIC SCH (12:00)
[2016-12-22] MEDS ORDERED: FAMOTIDINE IN SALINE, ISO-OSM 20 MG/50 ML PIGGYBACK IV SCH (12:00)
[2016-12-22] MEDS ORDERED: FAMOTIDINE IN SALINE, ISO-OSM 20 MG/50 ML PIGGYBACK IV ONE (12:11)
[2016-12-22] MEDS ORDERED: MIDAZOLAM HCL 2 MG/2 ML VIAL ONE (12:12)
[2016-12-22] MEDS ORDERED: BUPIVACAINE HCL/PF 0.25% 10 ML VIAL INJ ONE (12:13)
[2016-12-22] MEDS ORDERED: BUPIVACAINE/EPI 0.25% 1 VIAL VIAL ONE (12:13)
[2016-12-22] MEDS ORDERED: MORPHINE SULFATE/PF 10 MG/10 ML VIAL ONE (12:19)
[2016-12-22] MEDS ORDERED: FENTANYL 100 MCG/2 ML VIAL ONE (12:19)
[2016-12-22] MEDS ORDERED: TETRACAINE HCL 1% 20 MG/2 ML AMP ONE (12:20)
[2016-12-22] MEDS ORDERED: EPHEDrine SULFATE 50 MG/ML VIAL ONE (12:21)
[2016-12-22] MEDS ORDERED: ATROPINE SULFATE 0.4 MG/ML VIAL ONE (12:21)
[2016-12-22] MEDS ORDERED: DEXTROSE 5% WATER 250 ML IV ONE (12:23)
[2016-12-22] MEDS ORDERED: NOREPINEPHRINE BITARTRATE 4 MG/4 ML VIAL IV ONE (12:23)
[2016-12-22] MEDS ORDERED: KETOROLAC TROMETHAMINE 30 MG/ML VIAL ONE (12:30)
[2016-12-22] MEDS ORDERED: NORMAL SALINE FLUSH 20 ML ONE (12:30)
[2016-12-22] MEDS ORDERED: ROPIVACAINE HCL 0.5% 30 ML ONE (12:31)
[2016-12-22] MEDS ORDERED: NOREPINEPHRINE BITARTRATE IV SCH (12:36)
[2016-12-22] MEDS ORDERED: WATER IV SCH (12:36)
[2016-12-22] MEDS ORDERED: DEXTROSE 5% IV SCH (12:36)
[2016-12-22] MEDS ORDERED: NORMAL SALINE FLUSH 10 ML ONE (12:42)
[2016-12-22] MEDS ORDERED: TRANEXAMIC ACID 1,000 MG in NORMAL SALINE 100 ML IV SCH (13:43)
[2016-12-22] MEDS ORDERED: MORPHINE SULFATE 2 MG/ML SYR IV PRN (13:43)
[2016-12-22] MEDS ORDERED: NORMAL SALINE 1,000 ML IV SCH (13:43)
[2016-12-22] MEDS ORDERED: NALOXONE HCL 0.4 MG/ML VIAL IV PRN ×6 (13:43→16:51)
[2016-12-22] MEDS ORDERED: DIPHENHYDRAMINE 50 MG/ML VIAL IV PRN ×2 (13:43→16:51)
[2016-12-22] MEDS ORDERED: NALBUPHINE HCL 10 MG/ML AMP IV PRN ×2 (13:43→16:51)
[2016-12-22] MEDS ORDERED: ONDANSETRON HCL 4 MG/2 ML VIAL IV PRN ×3 (13:43→16:51)
[2016-12-22] MEDS ORDERED: ACETAMINOPHEN 325 MG TABLET PO PRN (13:43)
[2016-12-22] MEDS ORDERED: DIPHENHYDRAMINE 25 MG CAPSULE PO PRN ×2 (13:43→16:51)
[2016-12-22] MEDS ORDERED: LACTATED RINGERS 1,000 ML IV SCH (14:00)
--- NOTE | 2016-12-22 15:59 | PROCEDURE NOTE: Orthopedics ---
Orthopedic Procedure note - Brief Operative Note Date of procedure: 12/22/16 Pre-Op Diagnosis: Right femoral neck fracture Post-op diagnosis: same Procedure: Bipolar hemiarthroplasty Implants: 2- BIOMETCOBALT BONE CEMENT HV WITH GENTAMYCIN LOT#[id number]. EXP 2017. BIOMET DISTAL STEM CENTRALIZER. SIZE 11, LOT [id number]. BIOMET INTRAMEDULLARY BONE PLUG. BONE CEMENT RESTRICTOR 16MM LOT#[id number]. BIOMET ECHO FX HIP FEMORAL 11MM X140MM STANDARD OFFSET, REDUCED PROXIMAL PROFILE, LOT# [id number]. EXP 08/2024. BIOMET MODULAR HEAD SYSTEM 3MM NECK LOT# [id number] EXP 2025. BIOMET RINF LOC BIPOLAR ACETABULAR CUP 28MM ID/52MM OD LOT#[id number] EXP 2018 Anesthesia Type: Spinal Physician: VIPUL PUENTES Estimated Blood Loss: 400 Specimen/Pathology: none sent Sponge/instrument count: correct X-ray/Fluoroscopy: No Condition: stable Disposition: PACU
[2016-12-22] MEDS ORDERED: WARFARIN SODIUM 5 MG TABLET PO SCH (16:51)
[2016-12-22] MEDS ORDERED: WARFARIN SODIUM 7.5 MG PO SCH (16:51)
--- NOTE | 2016-12-22 17:33 | RADIOLOGY REPORT ---
HISTORY: Status post right hip arthroplasty COMPARISON: None. Findings/impression: 2 views were obtained of the right hip following arthroplasty. The right hip arthroplasty hardware ap pears intact. Overlying postoperative gas and edema present. 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 Osse ous demineralization may be quantified with DEXA scan. Final Electronic Signature: This report was electronically signed by Guevara Jang MD on 12/22/2016 5:31 PM. [email or web address] /
[2016-12-22] MEDS ORDERED: BRIMONIDINE EACHEYE SCH (18:00)
[2016-12-22] MEDS ORDERED: [UNRECOGNIZED DRUG - OTHER] EACHEYE SCH (18:00)
[2016-12-22] MEDS ORDERED: BRIMONIDINE 0.1% EACHEYE SCH ×3 (18:00)
[2016-12-22] MEDS ORDERED: BRINZOLAMIDE 1% EACHEYE SCH ×2 (18:00)
[2016-12-22] MEDS ORDERED: NORMAL SALINE MINI-BAG+ 100 ML IV ONE (18:09)
[2016-12-22] MEDS: ceFAZolin 1 GM in NORMAL SALINE MINI-BAG+ 100 ML IV SCH (18:14)
[2016-12-22] MEDS: CELECOXIB 100 MG CAPSULE PO SCH (18:15)
[2016-12-22] MEDS ORDERED: WARFARIN SODIUM 5 MG TABLET PO ONE (18:17)
[2016-12-22] MEDS: BRINZOLAMIDE 1% EACHEYE SCH (18:26)
[2016-12-22] MEDS ORDERED: WARFARIN SODIUM 2.5 MG TABLET PO ONE (19:12)
[2016-12-22] MEDS: WARFARIN SODIUM 2.5 MG TABLET PO SCH (19:25)
[2016-12-22] MEDS: DOCUSATE SODIUM 100 MG CAPSULE PO SCH (20:46)
[2016-12-22] MEDS ORDERED: ENALAPRIL MALEATE 5 MG TABLET PO SCH (21:00)
[2016-12-22] MEDS ORDERED: LATANOPROST 0.005% EACHEYE SCH ×3 (21:00)
[2016-12-22] MEDS: DEXTROSE 5% LACTATED RINGERS 1,000 ML IV SCH (22:20)
[2016-12-23] MEDS: ceFAZolin 1 GM in NORMAL SALINE MINI-BAG+ 100 ML IV SCH ×2 (00:51→08:46)
[2016-12-23] MEDS: BRIMONIDINE 0.1% EACHEYE SCH ×3 (06:24→17:07)
[2016-12-23] MEDS: BRINZOLAMIDE 1% EACHEYE SCH ×3 (06:25→17:07)
[2016-12-23] MEDS ORDERED: LEVOTHYROXINE 75 MCG TABLET PO SCH (06:30)
[2016-12-23 07:20] LABS: BASOPHILS 0.4 % (0.0-2.0); EOSINOPHILS 3.6 % (0.0-6.0); EOSINOPHILS# 0.3 X 10^3uL (0.0-0.4); HEMATOCRIT 32.9 % (36.0-48.0); HEMOGLOBIN 11.3 g/dL (12.0-16.0); LYMPHOCYTES 5.3 % (20.0-40.0); LYMPHOCYTES# 0.4 X 10^3uL (0.8-3.8); MEAN CORPUS. HGB CONCENTRATION 34.3 g/dL (32.0-36.0); MEAN CORPUSCULAR HEMOGLOBIN 30.1 pg (29.0-35.0); MEAN PLATELET VOLUME 8.4 fL (7.4-10.4); MONOCYTES 9.6 % (2.0-10.0); MONOCYTES# 0.7 X 10^3uL (0.2-1.0); NEUTROPHILS 81.1 % (54.0-75.0); RED BLOOD COUNT 3.74 X 10^6uL (4.20-6.10); RED CELL DISTRIBUTION WIDTH 12.9 % (11.5-14.5); WHITE BLOOD COUNT 7.4 X 10^3uL (3.9-10.7)
[2016-12-23 07:38] LABS: ALBUMIN 2.7 g/dL (3.5-5.0); ALKALINE PHOSPHATASE 47 U/L (38-126); ALT 29 U/L (9-52); AST 21 U/L (14-36); BILIRUBIN, TOTAL 0.9 mg/dL (0.2-1.3); BLOOD UREA NITROGEN 16 mg/dL (7-17); CALCIUM 8.1 mg/dL (8.4-10.2); GLUCOSE 115 mg/dL (70-100); POTASSIUM 4.1 mmol/L (3.5-5.1); SODIUM 137 mmol/L (137-145); TOTAL PROTEIN 5.5 g/dL (6.3-8.2)
[2016-12-23 07:41] LABS: INR 1.3
[2016-12-23 07:52] LABS: CHLORIDE 108 mmol/L (98-107)
--- NOTE | 2016-12-23 07:55 | OPERATIVE REPORT ---
DATE OF SURGERY: 12/22/16 SURGEON: Camron Iqbal MD PREOPERATIVE DIAGNOSIS: Displaced femoral neck fracture of the right hip. POSTOPERATIVE DIAGNOSIS: Displaced femoral neck fracture of the right hip. PROCEDURE PERFORMED: Hemiarthroplasty of the right hip. IMPLANTS USED: Biomet bipolar system with a size 11 cemented femoral component and a 52 mm bipolar head. INDICATIONS FOR PROCEDURE: Patient is an 86-year-old female who sustained a fall at home, after which she was brought in with a displaced fracture of her left femoral neck. Due to the clearly unstable nature of the fracture, she was taken to the operating room for bipolar arthroplasty of the left hip. SUMMARY: After informed consent was obtained, the patient was taken to the operating room where she was placed in the left lateral decubitus position under spinal block anesthesia. After adequate anesthesia was achieved, the right hip and lower extremity were prepped and draped in the usual sterile fashion, and a curvilinear incision was performed centered on the greater trochanter. The underlying soft tissue was sharply dissected to reveal the tensor fascia and the gluteal fascia. The fascia was incised sharply and then blunt dissection was carried out down to the greater trochanter. The bursa was resected, and the greater trochanter was exposed. 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 We then exposed the short external rotators and a #2 Fiberwire suture was placed into the pyriformis tendon. The pyriformis and external rotators were then released off the greater trochanter using electrocautery. The underlying joint capsule was then exposed and a capsulotomy was performed using a posterior based flap. The hip again was internally rotated, and the femoral neck fracture was noted. The femoral neck was marked for resection using electrocautery, and then the oscillating saw was used to resect the residual remaining femoral neck. The femoral head was then removed from the acetabulum and measured at 52 mm. The pulvinar was removed from the acetabulum and then the wound and joint were irrigated with copious amounts of sterile saline. The trial head was placed into the acetabulum, and the 52 mm head was noted to fit quite well. Attention was then focused at that time on the femur, at which time the starting reamer was placed into the femoral canal, after which the femoral canal was sequentially reamed and then broached to a size 11. The size 11 trial was left in place, and the calcar planer was used to smooth the proximal cut. The trial head and neck components were then placed onto the stem and this was reduced. Using a +3 neck length, the hip was noted to be quite stable with full extension, and flexion of 90 degrees with greater than 80 degrees of internal rotation. Also with full adduction of the hip in the flexed position and 70 degrees of internal rotation. Therefore that set of components was selected and all the trial components were removed. The wound was irrigated with copious amounts of sterile saline under pulsatile lavage as was the femoral canal. The orthopedic cocktail was injected into the joint capsule, and then the cement restrictor was placed into the femoral canal after which the femoral canal was carefully lavaged and dried. The femoral component was then cemented into position and the excess cement was removed. Once the cement had hardened, we placed the trial head and neck components onto the femoral stem one more time and reduced the hip. Once again, the patient was noted to achieve stability with 90 degrees of flexion in the hip and between 80-90 degrees of internal rotation, and also 90 degree flexion of the hip, at adduction and greater than 70 degrees of internal rotation. The trial head and neck were then removed, and the mortise taper portion of the femoral stem was carefully cleaned and dried. The bipolar head component was then assembled and tapped into position. The hip was reduced again, and the stability was checked one more time and noted to be the same as what we had noted with the trial components. Therefore, the wound was irrigated once again under pulsatile lavage, and the joint capsule was repaired to the greater trochanter through drill holes, and then repaired side to side using #1 Vicryl. Likewise, the pyriformis tendon was repaired to the greater trochanter through drill holes. We gently decorticated the lateral portion of the greater trochanter underneath the gluteus medius tear, and then the gluteus medius was repaired using #2 Fiberwire. A deep drain was then placed, and then the fascia was closed with #1 Vicryl in an interrupted figure of eight fashion. The subcutaneous tissue was then closed using 0 and then 2-0 Vicryl, and the skin was closed using skin carlos alberto. A sterile gauze dressing was then applied, and the patient was placed into a hip abduction pad. The patient tolerated the procedure well and was taken to the recovery room in stable condition. ESTIMATED BLOOD LOSS: 400 mL. FLUIDS: Lactated ringers 1900 mL. MTDD
[2016-12-23] MEDS ORDERED: O2 HUMIDIFIER 650 ML BOTTLE INHALATION ONE (08:18)
[2016-12-23] MEDS: CALCIUM/VIT D 600 MG/400 IU 1 TAB TABLET PO SCH (08:46)
[2016-12-23] MEDS: ASCORBIC ACID 500 MG TABLET PO SCH (08:46)
[2016-12-23] MEDS: DOCUSATE SODIUM 100 MG CAPSULE PO SCH ×2 (08:46→20:15)
[2016-12-23] MEDS: MULTIVITAMINS THERAPEUTIC 1 TABLET PO SCH (08:46)
[2016-12-23] MEDS: CELECOXIB 100 MG CAPSULE PO SCH ×2 (08:58→17:12)
[2016-12-23] MEDS ORDERED: FUROSEMIDE 20 MG TABLET PO SCH (09:00)
[2016-12-23] MEDS ORDERED: ATORVASTATIN CALCIUIM 40 MG TABLET PO SCH ×2 (09:00)
[2016-12-23] MEDS ORDERED: POTASSIUM CHLORIDE ER 20 MEQ TABLET PO SCH (09:00)
[2016-12-23] MEDS ORDERED: ENOXAPARIN SODIUM 40 MG/0.4 ML SYR SUBCUT SCH ×2 (09:00→17:00)
--- NOTE | 2016-12-23 09:23 | PROGRESS NOTE: Orthopedics ---
Orthopedic PN Subjective - Subjective Principal Diagnosis: Post op hemiarthroplasty right hip Post-op Day: 1 Interval history: Pt feels well. Reports no pain. Ortho PN Objective Exam - Latest Vital Signs and I&O Latest Vital Signs/I&O: Vital Signs Temp 37.4 C 12/23/16 05:55 Pulse 69 12/23/16 05:55 Resp 16 12/23/16 05:55 BP 111/53 12/23/16 05:55 Pulse Ox 97 12/23/16 05:55 Intake & Output 12/22/16 12/23/16 12/23/16 17:59 05:59 17:59 Intake Total 2926 Output Total 1950 415 Balance 976 -415 Weight 86.183 kg Intake: IV 2871 Right Antecubital 421 Right Wrist 2450 Oral 55 Output: Drainage 190 Right Hip 190 Urine 1950 225 Uretheral (Holt) 850 Other: Urine Appearance Clear Clear Urine Color Yellow Light Rhina Uretheral (Holt) Pale Yellow Voiding Method Indwelling Catheter Indwelling Catheter - Post-Operative Exam Post-op Day: 1 Dressing Status: dry & intact Drainage Amount: none Active Motor: intact Sensation: intact - Lab Labs: Laboratory Last Values WBC 7.4 X 10^3uL (3.9-10.7) 12/23/16 06:55 RBC 3.74 X 10^6uL (4.20-6.10) L 12/23/16 06:55 Hgb 11.3 g/dL (12.0-16.0) L 12/23/16 06:55 Hct 32.9 % (36.0-48.0) L 12/23/16 06:55 MCV 88.0 fL (80.0-100.0) 12/23/16 06:55 MCH 30.1 pg (29.0-35.0) 12/23/16 06:55 MCHC 34.3 g/dL (32.0-36.0) 12/23/16 06:55 RDW 12.9 % (11.5-14.5) 12/23/16 06:55 Plt Count 138 X 10^3uL (130-440) 12/23/16 06:55 MPV 8.4 fL (7.4-10.4) 12/23/16 06:55 Neutrophils % 81.1 % (54.0-75.0) H 12/23/16 06:55 Lymphocytes % 5.3 % (20.0-40.0) L 12/23/16 06:55 Eosinophils % 3.6 % (0.0-6.0) 12/23/16 06:55 Basophils % 0.4 % (0.0-2.0) 12/23/16 06:55 Neutrophils # 6.0 X 10^3uL (2.6-6.7) 12/23/16 06:55 Lymphocytes # 0.4 X 10^3uL (0.8-3.8) L 12/23/16 06:55 Monocytes 9.6 % (2.0-10.0) 12/23/16 06:55 Monocytes # 0.7 X 10^3uL (0.2-1.0) 12/23/16 06:55 Eosinophils # 0.3 X 10^3uL (0.0-0.4) 12/23/16 06:55 Basophils # 0.0 X 10^3uL (0.0-0.1) 12/23/16 06:55 PT 16.9 sec (13.0-16.6) H 12/23/16 06:55 Capillary INR 1.3 (0.8-1.2) H 12/22/16 11:45 INR 1.3 12/23/16 06:55 Sodium 137 mmol/L (137-145) 12/23/16 06:55 Potassium 4.1 mmol/L (3.5-5.1) 12/23/16 06:55 Chloride 108 mmol/L (98-107) H 12/23/16 06:55 Carbon Dioxide 27 mmol/L (22-30) 12/23/16 06:55 BUN 16 mg/dL (7-17) 12/23/16 06:55 Creatinine 0.9 mg/dL (0.5-1.0) 12/23/16 06:55 GFR Calculation Not Reportable 12/23/16 06:55 Glucose 115 mg/dL (70-100) H 12/23/16 06:55 Calcium 8.1 mg/dL (8.4-10.2) L 12/23/16 06:55 Total Bilirubin 0.9 mg/dL (0.2-1.3) 12/23/16 06:55 Direct Bilirubin 0.2 mg/dL (0.0-0.4) 12/20/16 18:53 AST 21 U/L (14-36) 12/23/16 06:55 ALT 29 U/L (9-52) 12/23/16 06:55 Alkaline Phosphatase 47 U/L (38-126) 12/23/16 06:55 Total Protein 5.5 g/dL (6.3-8.2) L 12/23/16 06:55 Albumin 2.7 g/dL (3.5-5.0) L 12/23/16 06:55 Albumin/Globulin Ratio 1.0 12/23/16 06:55 ABO Group Type a 12/22/16 05:00 Rh Factor Negative 12/22/16 05:00 Antibody Screen Negative 12/22/16 05:00 Assessment and Plan-Ortho - Date of Encounter Date of Encounter: 12/23/16 (1) Fracture of femoral neck, right, closed Status: Acute Assessment and plan: Doing well POD #1 hemiarthroplasty right hip Plan: Begin PT/mobilization. Monitor INR, H/H Current Visit: Yes Estimated anticipated discharge: 3 days or more
[2016-12-23] MEDS: ENOXAPARIN SODIUM 40 MG/0.4 ML SYR SUBCUT SCH (09:27)
[2016-12-23] MEDS: Pilocarpine 2% Opth Soln EACHEYE SCH ×3 (11:54→20:15)
[2016-12-23] MEDS: TIMOLOL 0.5% EACHEYE SCH (11:54)
--- NOTE | 2016-12-23 13:35 | PROGRESS NOTE: IM APSO ---
Assessment and Plan - Date of Encounter Date of Encounter: 12/23/16 (1) Fracture of femoral neck, right, closed Status: Acute Assessment and plan: s/p hemiarthroplasty right hip on 12/22. appropriate post op course thus far. Restart anticoagulation. H/H stable. Appreciate orthopedic recommendations Current Visit: Yes (2) Supratherapeutic INR Status: Resolved Assessment and plan: INR returned to appropriate range prior to surgery and no restarted anticoagulation Current Visit: Yes (3) Afib Status: Chronic Assessment and plan: Currently stable and rate controlled. Is managed by cardiology with recent visit in October. Restarted anticoagulation after surgery- coumadin with lovenox bridge Current Visit: Yes (4) Sick sinus syndrome Status: Chronic Assessment and plan: Currently stable, recent cardiology visit 10/2016. If any concerns may need cardiology input during stay. Current Visit: Yes (5) Hypertension Status: Chronic Assessment and plan: More hypotension noted at this time, likely fluid loss/medication. continue to monitor- may need medication adjustment. Current Visit: Yes (6) Hypothyroid Status: Chronic Assessment and plan: continue home dose medication Current Visit: Yes (7) Hyperlipemia Status: Chronic Assessment and plan: Continue home medication Current Visit: Yes (8) Glaucoma Status: Chronic Assessment and plan: Patient feels her eyes are her most significant health issues currently. Has partial site in one eye and normal vision in other. some difficulties with getting appropriate eye drops ordered after surgery but appreciate pharmacy help in getting reordered. Current Visit: Yes (9) Anxiety Status: Acute Assessment and plan: Doing well thus far with hospitalization, continue to monitor, especially for any worsening in symptoms if needing increased pain medications Current Visit: Yes (10) Chronic renal insufficiency Status: Chronic Assessment and plan: Stable kidney function currently. continue to monitor with medication needs/ surgery Current Visit: Yes (11) Hypoxia Status: Acute Assessment and plan: Likely combination of narcotic use/decreased mobility/mouth breathing when sleeping- will continue supplemental oxygen as needed (specifically at night) as well as teach IS for use pre and post surgery. Current Visit: Yes - Time Spent With Patient Total time spent with greater than 50% in coordination of care (as documented) at patient's floor/unit and/or counseling patient: Greater than 35 minutes Estimated anticipated discharge: 3 days or more IM: PN Subjective Interval history: Doing well, no significant pain after surgery. Biggest concern is getting her eyedrops ordered properly. General: no fatigue, no good appetite, no fever, no chills HEENT: no headache, no sore throat Cardiovascular: no chest pain, no chest pressure, no palpitations, no dizziness Respiratory: other (admits to mouth breathing at night), no cough, no SOB Gastrointestinal: no abdominal pain, no vomiting, no constipation Genitourinary: no dysuria Musculoskeletal: pain (mild, right leg), weakness Neurological: no headache IM: PN Objective Exam - I&O/Vital Signs I&O: Intake & Output 12/22/16 12/23/16 12/23/16 21:59 05:59 13:59 Intake Total 2926 Output Total 1260 255 Balance 1666 -255 Weight 86.183 kg Intake: IV 2871 Right Antecubital 421 Right Wrist 2450 Oral 55 Output: Drainage 160 30 Right Hip 160 30 Urine 1100 225 Other: Urine Appearance Clear Clear Clear Urine Color Light Rhina Light Rhina Light Rhina Voiding Method Indwelling Catheter Indwelling Catheter Indwelling Catheter Vital Signs: Last Vital Signs Temp 36.1 C L 12/23/16 11:00 Pulse 75 12/23/16 11:00 Resp 16 12/23/16 11:00 BP 94/42 12/23/16 11:00 Pulse Ox 92 12/23/16 11:00 Oxygen Flow Rate 3.5 Oxygen Delivery Method Nasal Cannula - Constitutional General appearance: Present: cooperative. Absent: acute distress - Head Head exam: Present: atraumatic, normal inspection, normocephalic - Eye Eye exam: Present: EOMI, normal appearance, other (glasses). Absent: conjunctival injection - ENT ENT exam: Present: mucous membranes moist, normal oropharynx - Neck Neck exam: Present: normal inspection. Absent: tenderness - Respiratory Respiratory exam: Present: CTAB. Absent: accessory muscle use - Cardiovascular Cardiovascular exam: Present: RRR, systolic murmur - GI/Abdominal GI/Abdominal exam: Present: soft. Absent: tenderness - Extremities Exam Extremities exam: Present: edema (bilateral but left (noninjured side) worse than right (chronic per patient)), tenderness (hip/femur). Absent: calf tenderness - Neurological Exam Neurological exam: Present: alert, CN II-XII intact, oriented X3 - Psychiatric Psychiatric exam: Present: normal affect, normal mood - Allied Health Notes Allied health notes reviewed: nursing - Lab Labs: Laboratory Last Values WBC 7.4 X 10^3uL (3.9-10.7) 12/23/16 06:55 RBC 3.74 X 10^6uL (4.20-6.10) L 12/23/16 06:55 Hgb 11.3 g/dL (12.0-16.0) L 12/23/16 06:55 Hct 32.9 % (36.0-48.0) L 12/23/16 06:55 MCV 88.0 fL (80.0-100.0) 12/23/16 06:55 MCH 30.1 pg (29.0-35.0) 12/23/16 06:55 MCHC 34.3 g/dL (32.0-36.0) 12/23/16 06:55 RDW 12.9 % (11.5-14.5) 12/23/16 06:55 Plt Count 138 X 10^3uL (130-440) 12/23/16 06:55 MPV 8.4 fL (7.4-10.4) 12/23/16 06:55 Neutrophils % 81.1 % (54.0-75.0) H 12/23/16 06:55 Lymphocytes % 5.3 % (20.0-40.0) L 12/23/16 06:55 Eosinophils % 3.6 % (0.0-6.0) 12/23/16 06:55 Basophils % 0.4 % (0.0-2.0) 12/23/16 06:55 Neutrophils # 6.0 X 10^3uL (2.6-6.7) 12/23/16 06:55 Lymphocytes # 0.4 X 10^3uL (0.8-3.8) L 12/23/16 06:55 Monocytes 9.6 % (2.0-10.0) 12/23/16 06:55 Monocytes # 0.7 X 10^3uL (0.2-1.0) 12/23/16 06:55 Eosinophils # 0.3 X 10^3uL (0.0-0.4) 12/23/16 06:55 Basophils # 0.0 X 10^3uL (0.0-0.1) 12/23/16 06:55 PT 16.9 sec (13.0-16.6) H 12/23/16 06:55 Capillary INR 1.3 (0.8-1.2) H 12/22/16 11:45 INR 1.3 12/23/16 06:55 Sodium 137 mmol/L (137-145) 12/23/16 06:55 Potassium 4.1 mmol/L (3.5-5.1) 12/23/16 06:55 Chloride 108 mmol/L (98-107) H 12/23/16 06:55 Carbon Dioxide 27 mmol/L (22-30) 12/23/16 06:55 BUN 16 mg/dL (7-17) 12/23/16 06:55 Creatinine 0.9 mg/dL (0.5-1.0) 12/23/16 06:55 GFR Calculation Not Reportable 12/23/16 06:55 Glucose 115 mg/dL (70-100) H 12/23/16 06:55 Calcium 8.1 mg/dL (8.4-10.2) L 12/23/16 06:55 Total Bilirubin 0.9 mg/dL (0.2-1.3) 12/23/16 06:55 Direct Bilirubin 0.2 mg/dL (0.0-0.4) 12/20/16 18:53 AST 21 U/L (14-36) 12/23/16 06:55 ALT 29 U/L (9-52) 12/23/16 06:55 Alkaline Phosphatase 47 U/L (38-126) 12/23/16 06:55 Total Protein 5.5 g/dL (6.3-8.2) L 12/23/16 06:55 Albumin 2.7 g/dL (3.5-5.0) L 12/23/16 06:55 Albumin/Globulin Ratio 1.0 12/23/16 06:55 ABO Group Type a 12/22/16 05:00 Rh Factor Negative 12/22/16 05:00 Antibody Screen Negative 12/22/16 05:00 Quality Questions - VTE Prophylaxis Assessment VTE Present on Admission?: No Patient at risk for venous thromboembolism?: No VTE Risk Level: High Risk Pharmaceutical VTE prophylaxis contraindication reason: N/A- VTE prophylaxsis ordered Mechanical VTE prophylaxis contraindication reason: N/A- VTE prophylaxsis ordered (5) Hypertension Qualifiers: Hypertension type: essential hypertension Qualified Code(s): I10 - Essential (primary) hypertension (8) Glaucoma Qualifiers: Laterality: bilateral
[2016-12-23] MEDS: DEXTROSE 5% LACTATED RINGERS 1,000 ML IV SCH (16:38)
[2016-12-23] MEDS: WARFARIN SODIUM 2.5 MG TABLET PO SCH (16:39)
[2016-12-23] MEDS: LATANOPROST 0.005% EACHEYE SCH (20:15)
[2016-12-23] MEDS: ATORVASTATIN CALCIUIM 40 MG TABLET PO SCH (20:15)
[2016-12-24] MEDS: DEXTROSE 5% LACTATED RINGERS 1,000 ML IV SCH (05:47)
[2016-12-24 06:21] LABS: HEMATOCRIT 30.2 % (36.0-48.0); HEMOGLOBIN 9.9 g/dL (12.0-16.0)
[2016-12-24] MEDS: BRINZOLAMIDE 1% EACHEYE SCH ×3 (06:50→18:55)
[2016-12-24] MEDS: Pilocarpine 2% Opth Soln EACHEYE SCH ×4 (06:50→21:38)
[2016-12-24] MEDS: BRIMONIDINE 0.1% EACHEYE SCH ×3 (06:50→18:55)
--- NOTE | 2016-12-24 07:46 | PROGRESS NOTE: Orthopedics ---
Orthopedic PN Subjective - Subjective Principal Diagnosis: Post op hemiarthroplasty right hip Post-op Day: 2 Interval history: Pt feels well. Still relatively little pain. Ortho PN Objective Exam - Latest Vital Signs and I&O Latest Vital Signs/I&O: Vital Signs Temp 36.6 C 12/24/16 06:19 Pulse 61 12/24/16 06:19 Resp 17 12/24/16 06:19 BP 109/45 12/24/16 06:19 Pulse Ox 92 12/24/16 06:19 Intake & Output 12/23/16 12/24/16 12/24/16 17:59 05:59 17:59 Intake Total 1100 1060 Output Total 200 350 Balance 900 710 Intake: IV 885 Left Wrist 885 Oral 1100 175 Output: Urine 200 350 Other: Urine Appearance Clear Clear Urine Color Light Rhina Light Rhina Voiding Method Indwelling Catheter Indwelling Catheter - Post-Operative Exam Dressing Status: dry & intact Drainage Amount: none Active Motor: intact Sensation: intact Hilda's sign: Negative Calf tenderness: no - Lab Labs: Laboratory Last Values WBC 7.4 X 10^3uL (3.9-10.7) 12/23/16 06:55 RBC 3.74 X 10^6uL (4.20-6.10) L 12/23/16 06:55 Hgb 9.9 g/dL (12.0-16.0) L 12/24/16 05:40 Hct 30.2 % (36.0-48.0) L 12/24/16 05:40 MCV 88.0 fL (80.0-100.0) 12/23/16 06:55 MCH 30.1 pg (29.0-35.0) 12/23/16 06:55 MCHC 34.3 g/dL (32.0-36.0) 12/23/16 06:55 RDW 12.9 % (11.5-14.5) 12/23/16 06:55 Plt Count 138 X 10^3uL (130-440) 12/23/16 06:55 MPV 8.4 fL (7.4-10.4) 12/23/16 06:55 Neutrophils % 81.1 % (54.0-75.0) H 12/23/16 06:55 Lymphocytes % 5.3 % (20.0-40.0) L 12/23/16 06:55 Eosinophils % 3.6 % (0.0-6.0) 12/23/16 06:55 Basophils % 0.4 % (0.0-2.0) 12/23/16 06:55 Neutrophils # 6.0 X 10^3uL (2.6-6.7) 12/23/16 06:55 Lymphocytes # 0.4 X 10^3uL (0.8-3.8) L 12/23/16 06:55 Monocytes 9.6 % (2.0-10.0) 12/23/16 06:55 Monocytes # 0.7 X 10^3uL (0.2-1.0) 12/23/16 06:55 Eosinophils # 0.3 X 10^3uL (0.0-0.4) 12/23/16 06:55 Basophils # 0.0 X 10^3uL (0.0-0.1) 12/23/16 06:55 PT 16.9 sec (13.0-16.6) H 12/23/16 06:55 Capillary INR 1.3 (0.8-1.2) H 12/22/16 11:45 INR 1.3 12/23/16 06:55 Sodium 137 mmol/L (137-145) 12/23/16 06:55 Potassium 4.1 mmol/L (3.5-5.1) 12/23/16 06:55 Chloride 108 mmol/L (98-107) H 12/23/16 06:55 Carbon Dioxide 27 mmol/L (22-30) 12/23/16 06:55 BUN 16 mg/dL (7-17) 12/23/16 06:55 Creatinine 0.9 mg/dL (0.5-1.0) 12/23/16 06:55 GFR Calculation Not Reportable 12/23/16 06:55 Glucose 115 mg/dL (70-100) H 12/23/16 06:55 Calcium 8.1 mg/dL (8.4-10.2) L 12/23/16 06:55 Total Bilirubin 0.9 mg/dL (0.2-1.3) 12/23/16 06:55 Direct Bilirubin 0.2 mg/dL (0.0-0.4) 12/20/16 18:53 AST 21 U/L (14-36) 12/23/16 06:55 ALT 29 U/L (9-52) 12/23/16 06:55 Alkaline Phosphatase 47 U/L (38-126) 12/23/16 06:55 Total Protein 5.5 g/dL (6.3-8.2) L 12/23/16 06:55 Albumin 2.7 g/dL (3.5-5.0) L 12/23/16 06:55 Albumin/Globulin Ratio 1.0 12/23/16 06:55 ABO Group Type a 12/22/16 05:00 Rh Factor Negative 12/22/16 05:00 Antibody Screen Negative 12/22/16 05:00 Assessment and Plan-Ortho - Date of Encounter Date of Encounter: 12/24/16 (1) Fracture of femoral neck, right, closed Status: Acute Assessment and plan: Doing well. Continue PT/mobilization. Will check H/H again in AM Current Visit: Yes Estimated anticipated discharge: 3 days or more
[2016-12-24 07:50] LABS: INR 1.3
--- NOTE | 2016-12-24 09:44 | PROGRESS NOTE: IM APSO ---
Assessment and Plan - Date of Encounter Date of Encounter: 12/24/16 (1) Fracture of femoral neck, right, closed Status: Acute Assessment and plan: s/p hemiarthroplasty right hip on 12/22. appropriate post op course thus far. Restart anticoagulation. H/H dropped slightly but still stable Appreciate orthopedic recommendations Current Visit: Yes (2) Supratherapeutic INR Status: Resolved Current Visit: Yes (3) Afib Status: Chronic Assessment and plan: Currently stable and rate controlled. Is managed by cardiology with recent visit in October. Restarted anticoagulation after surgery- coumadin with lovenox bridge. INR still below therapeutic range after reversal for surgery. Current Visit: Yes (4) Sick sinus syndrome Status: Chronic Assessment and plan: Currently stable, recent cardiology visit 10/2016. If any concerns may need cardiology input during stay. Current Visit: Yes (5) Hypertension Status: Chronic Assessment and plan: More hypotension noted at this time, likely fluid loss/medication. continue to monitor- may need medication adjustment. Current Visit: Yes (6) Glaucoma Status: Chronic Assessment and plan: Patient feels her eyes are her most significant health issues currently. Has partial site in one eye and normal vision in other. back on appropriate regimen with no concerns. Current Visit: Yes (7) Hypothyroid Status: Chronic Assessment and plan: continue home dose medication Current Visit: Yes (8) Hyperlipemia Status: Chronic Assessment and plan: Continue home medication Current Visit: Yes (9) Anxiety Status: Acute Assessment and plan: Doing well thus far with hospitalization, continue to monitor, especially for any worsening in symptoms if needing increased pain medications Current Visit: Yes (10) Chronic renal insufficiency Status: Chronic Assessment and plan: Stable kidney function currently. continue to monitor with medication needs/ surgery Current Visit: Yes (11) Hypoxia Status: Acute Assessment and plan: Likely combination of narcotic use/decreased mobility/mouth breathing when sleeping- will continue supplemental oxygen as needed (specifically at night) as well as teach IS for use pre and post surgery. Current Visit: Yes - Time Spent With Patient Total time spent with greater than 50% in coordination of care (as documented) at patient's floor/unit and/or counseling patient: Greater than 35 minutes Estimated anticipated discharge: Likely swing bed mon or sun IM: PN Subjective Interval history: Had rough night- got really hot an uncomfortable. improved with position change /fan/pain medication. today up in chair eating breakfast and feeling good. General: no fatigue, no good appetite, no fever, no chills HEENT: no headache, no sore throat Cardiovascular: no chest pain, no chest pressure, no palpitations, no dizziness Respiratory: other (admits to mouth breathing at night), no cough, no SOB Gastrointestinal: no abdominal pain, no vomiting, no constipation Genitourinary: no dysuria Musculoskeletal: pain (mild, right leg), weakness Neurological: no headache IM: PN Objective Exam - I&O/Vital Signs I&O: Intake & Output 12/23/16 12/24/16 12/24/16 21:59 05:59 13:59 Intake Total 1100 1060 Output Total 200 350 Balance 900 710 Intake: IV 885 Left Wrist 885 Oral 1100 175 Output: Urine 200 350 Other: Urine Appearance Clear Clear Urine Color Light Rhina Light Rhina Voiding Method Indwelling Catheter Indwelling Catheter Vital Signs: Last Vital Signs Temp 36.6 C 12/24/16 06:19 Pulse 61 12/24/16 06:19 Resp 17 12/24/16 06:19 BP 109/45 12/24/16 06:19 Pulse Ox 92 12/24/16 06:19 Oxygen Flow Rate 4 Oxygen Delivery Method Nasal Cannula - Constitutional General appearance: Present: cooperative. Absent: acute distress - Head Head exam: Present: atraumatic, normal inspection, normocephalic - Eye Eye exam: Present: EOMI, normal appearance, other (glasses). Absent: conjunctival injection - ENT ENT exam: Present: mucous membranes moist, normal oropharynx - Neck Neck exam: Present: normal inspection. Absent: tenderness - Respiratory Respiratory exam: Present: CTAB. Absent: accessory muscle use - Cardiovascular Cardiovascular exam: Present: RRR, systolic murmur - GI/Abdominal GI/Abdominal exam: Present: soft. Absent: tenderness - Extremities Exam Extremities exam: Present: edema (bilateral but left (noninjured side) worse than right (chronic per patient)), tenderness (hip/femur). Absent: calf tenderness - Neurological Exam Neurological exam: Present: alert, CN II-XII intact, oriented X3 - Psychiatric Psychiatric exam: Present: normal affect, normal mood - Allied Health Notes Allied health notes reviewed: nursing, PT - Lab Labs: Laboratory Last Values WBC 7.4 X 10^3uL (3.9-10.7) 12/23/16 06:55 RBC 3.74 X 10^6uL (4.20-6.10) L 12/23/16 06:55 Hgb 9.9 g/dL (12.0-16.0) L 12/24/16 05:40 Hct 30.2 % (36.0-48.0) L 12/24/16 05:40 MCV 88.0 fL (80.0-100.0) 12/23/16 06:55 MCH 30.1 pg (29.0-35.0) 12/23/16 06:55 MCHC 34.3 g/dL (32.0-36.0) 12/23/16 06:55 RDW 12.9 % (11.5-14.5) 12/23/16 06:55 Plt Count 138 X 10^3uL (130-440) 12/23/16 06:55 MPV 8.4 fL (7.4-10.4) 12/23/16 06:55 Neutrophils % 81.1 % (54.0-75.0) H 12/23/16 06:55 Lymphocytes % 5.3 % (20.0-40.0) L 12/23/16 06:55 Eosinophils % 3.6 % (0.0-6.0) 12/23/16 06:55 Basophils % 0.4 % (0.0-2.0) 12/23/16 06:55 Neutrophils # 6.0 X 10^3uL (2.6-6.7) 12/23/16 06:55 Lymphocytes # 0.4 X 10^3uL (0.8-3.8) L 12/23/16 06:55 Monocytes 9.6 % (2.0-10.0) 12/23/16 06:55 Monocytes # 0.7 X 10^3uL (0.2-1.0) 12/23/16 06:55 Eosinophils # 0.3 X 10^3uL (0.0-0.4) 12/23/16 06:55 Basophils # 0.0 X 10^3uL (0.0-0.1) 12/23/16 06:55 PT 16.8 sec (13.0-16.6) H 12/24/16 05:40 Capillary INR 1.3 (0.8-1.2) H 12/22/16 11:45 INR 1.3 12/24/16 05:40 Sodium 137 mmol/L (137-145) 12/23/16 06:55 Potassium 4.1 mmol/L (3.5-5.1) 12/23/16 06:55 Chloride 108 mmol/L (98-107) H 12/23/16 06:55 Carbon Dioxide 27 mmol/L (22-30) 12/23/16 06:55 BUN 16 mg/dL (7-17) 12/23/16 06:55 Creatinine 0.9 mg/dL (0.5-1.0) 12/23/16 06:55 GFR Calculation Not Reportable 12/23/16 06:55 Glucose 115 mg/dL (70-100) H 12/23/16 06:55 Calcium 8.1 mg/dL (8.4-10.2) L 12/23/16 06:55 Total Bilirubin 0.9 mg/dL (0.2-1.3) 12/23/16 06:55 Direct Bilirubin 0.2 mg/dL (0.0-0.4) 12/20/16 18:53 AST 21 U/L (14-36) 12/23/16 06:55 ALT 29 U/L (9-52) 12/23/16 06:55 Alkaline Phosphatase 47 U/L (38-126) 12/23/16 06:55 Total Protein 5.5 g/dL (6.3-8.2) L 12/23/16 06:55 Albumin 2.7 g/dL (3.5-5.0) L 12/23/16 06:55 Albumin/Globulin Ratio 1.0 12/23/16 06:55 ABO Group Type a 12/22/16 05:00 Rh Factor Negative 12/22/16 05:00 Antibody Screen Negative 12/22/16 05:00 Quality Questions - VTE Prophylaxis Assessment VTE Present on Admission?: No Patient at risk for venous thromboembolism?: No VTE Risk Level: High Risk Pharmaceutical VTE prophylaxis contraindication reason: N/A- VTE prophylaxsis ordered Mechanical VTE prophylaxis contraindication reason: N/A- VTE prophylaxsis ordered (5) Hypertension Qualifiers: Hypertension type: essential hypertension Qualified Code(s): I10 - Essential (primary) hypertension (6) Glaucoma Qualifiers: Laterality: bilateral
[2016-12-24] MEDS: ENOXAPARIN SODIUM 40 MG/0.4 ML SYR SUBCUT SCH (10:00)
[2016-12-24] MEDS: CELECOXIB 100 MG CAPSULE PO SCH ×2 (10:00→18:54)
[2016-12-24] MEDS: CALCIUM/VIT D 600 MG/400 IU 1 TAB TABLET PO SCH (10:00)
[2016-12-24] MEDS: ASCORBIC ACID 500 MG TABLET PO SCH (10:00)
[2016-12-24] MEDS: DOCUSATE SODIUM 100 MG CAPSULE PO SCH ×2 (10:00→20:42)
[2016-12-24] MEDS: ACETAMINOPHEN 325 MG TABLET PO PRN (10:00)
[2016-12-24] MEDS: MULTIVITAMINS THERAPEUTIC 1 TABLET PO SCH (10:01)
[2016-12-24] MEDS: TIMOLOL 0.5% EACHEYE SCH (12:02)
[2016-12-24] MEDS ORDERED: BISACODYL 10 MG SUPP.RECT RECTAL PRN (15:25)
[2016-12-24] MEDS ORDERED: BISACODYL 10 MG SUPP.RECT RECTAL ONE (15:38)
[2016-12-24] MEDS ORDERED: WARFARIN SODIUM 5 MG TABLET PO SCH (16:00)
[2016-12-24] MEDS: ATORVASTATIN CALCIUIM 40 MG TABLET PO SCH (20:42)
[2016-12-24] MEDS: LATANOPROST 0.005% EACHEYE SCH (21:38)
[2016-12-25] MEDS: ACETAMINOPHEN 325 MG TABLET PO PRN (05:32)
[2016-12-25 06:44] LABS: HEMATOCRIT 33.8 % (36.0-48.0); HEMOGLOBIN 11.4 g/dL (12.0-16.0)
[2016-12-25] MEDS: Pilocarpine 2% Opth Soln EACHEYE SCH ×4 (07:00→20:49)
[2016-12-25] MEDS: BRIMONIDINE 0.1% EACHEYE SCH ×3 (07:00→17:24)
[2016-12-25] MEDS: BRINZOLAMIDE 1% EACHEYE SCH ×3 (07:00→17:24)
--- NOTE | 2016-12-25 08:24 | PROGRESS NOTE: Orthopedics ---
Orthopedic PN Subjective - Subjective Principal Diagnosis: Post op hemiarthroplasty Post-op Day: 3 Interval history: Pt feels well. Was able to ambulate to hallway yesterday w/ assistance. Ortho PN Objective Exam - Latest Vital Signs and I&O Latest Vital Signs/I&O: Vital Signs Temp 36.4 C 12/25/16 06:57 Pulse 67 12/25/16 06:57 Resp 20 12/25/16 06:57 BP 122/52 12/25/16 06:57 Pulse Ox 96 12/25/16 06:57 Intake & Output 12/24/16 12/25/16 12/25/16 17:59 05:59 17:59 Intake Total 930 300 Output Total 525 325 Balance 405 -25 Intake: Oral 930 300 Output: Urine 525 325 Other: Urine Appearance Clear Urine Color Light Rhina Stool Size Large Small Stool Characteristics Formed Soft Formed Liquid Brown Voiding Method Toilet Bedside Commode # Bowel Movements 1 2 - Post-Operative Exam Dressing Status: dry & intact Drainage Amount: none Active Motor: intact Sensation: intact Hilda's sign: Negative Calf tenderness: no - Lab Labs: Laboratory Last Values WBC 7.4 X 10^3uL (3.9-10.7) 12/23/16 06:55 RBC 3.74 X 10^6uL (4.20-6.10) L 12/23/16 06:55 Hgb 11.4 g/dL (12.0-16.0) L 12/25/16 05:50 Hct 33.8 % (36.0-48.0) L 12/25/16 05:50 MCV 88.0 fL (80.0-100.0) 12/23/16 06:55 MCH 30.1 pg (29.0-35.0) 12/23/16 06:55 MCHC 34.3 g/dL (32.0-36.0) 12/23/16 06:55 RDW 12.9 % (11.5-14.5) 12/23/16 06:55 Plt Count 138 X 10^3uL (130-440) 12/23/16 06:55 MPV 8.4 fL (7.4-10.4) 12/23/16 06:55 Neutrophils % 81.1 % (54.0-75.0) H 12/23/16 06:55 Lymphocytes % 5.3 % (20.0-40.0) L 12/23/16 06:55 Eosinophils % 3.6 % (0.0-6.0) 12/23/16 06:55 Basophils % 0.4 % (0.0-2.0) 12/23/16 06:55 Neutrophils # 6.0 X 10^3uL (2.6-6.7) 12/23/16 06:55 Lymphocytes # 0.4 X 10^3uL (0.8-3.8) L 12/23/16 06:55 Monocytes 9.6 % (2.0-10.0) 12/23/16 06:55 Monocytes # 0.7 X 10^3uL (0.2-1.0) 12/23/16 06:55 Eosinophils # 0.3 X 10^3uL (0.0-0.4) 12/23/16 06:55 Basophils # 0.0 X 10^3uL (0.0-0.1) 12/23/16 06:55 PT 16.8 sec (13.0-16.6) H 12/24/16 05:40 Capillary INR 1.3 (0.8-1.2) H 12/22/16 11:45 INR 1.3 12/24/16 05:40 Sodium 137 mmol/L (137-145) 12/23/16 06:55 Potassium 4.1 mmol/L (3.5-5.1) 12/23/16 06:55 Chloride 108 mmol/L (98-107) H 12/23/16 06:55 Carbon Dioxide 27 mmol/L (22-30) 12/23/16 06:55 BUN 16 mg/dL (7-17) 12/23/16 06:55 Creatinine 0.9 mg/dL (0.5-1.0) 12/23/16 06:55 GFR Calculation Not Reportable 12/23/16 06:55 Glucose 115 mg/dL (70-100) H 12/23/16 06:55 Calcium 8.1 mg/dL (8.4-10.2) L 12/23/16 06:55 Total Bilirubin 0.9 mg/dL (0.2-1.3) 12/23/16 06:55 Direct Bilirubin 0.2 mg/dL (0.0-0.4) 12/20/16 18:53 AST 21 U/L (14-36) 12/23/16 06:55 ALT 29 U/L (9-52) 12/23/16 06:55 Alkaline Phosphatase 47 U/L (38-126) 12/23/16 06:55 Total Protein 5.5 g/dL (6.3-8.2) L 12/23/16 06:55 Albumin 2.7 g/dL (3.5-5.0) L 12/23/16 06:55 Albumin/Globulin Ratio 1.0 12/23/16 06:55 ABO Group Type a 12/22/16 05:00 Rh Factor Negative 12/22/16 05:00 Antibody Screen Negative 12/22/16 05:00 Assessment and Plan-Ortho - Date of Encounter Date of Encounter: 12/25/16 (1) Fracture of femoral neck, right, closed Status: Acute Assessment and plan: Doing very well. Plan: Continue PT. Discharge later this week vs swing bed Current Visit: Yes Estimated anticipated discharge: Likely swing bed mon or tue
[2016-12-25] MEDS: CELECOXIB 100 MG CAPSULE PO SCH ×2 (08:30→17:25)
[2016-12-25] MEDS: ENOXAPARIN SODIUM 40 MG/0.4 ML SYR SUBCUT SCH (08:31)
[2016-12-25] MEDS: DOCUSATE SODIUM 100 MG CAPSULE PO SCH ×2 (08:31→20:37)
[2016-12-25] MEDS: MULTIVITAMINS THERAPEUTIC 1 TABLET PO SCH (08:31)
[2016-12-25] MEDS: CALCIUM/VIT D 600 MG/400 IU 1 TAB TABLET PO SCH (08:31)
[2016-12-25] MEDS: ASCORBIC ACID 500 MG TABLET PO SCH (08:32)
--- NOTE | 2016-12-25 08:37 | PROGRESS NOTE: IM APSO ---
Assessment and Plan - Date of Encounter Date of Encounter: 12/25/16 (1) Fracture of femoral neck, right, closed Status: Acute Assessment and plan: Fa;; wotj rogjt jhip fracture, now s/p ORIF, doing well from therapy standpoint but DME issues at home (limited mobility at home and scooter lift broken), is improved enough that may be able to go home mid week but may need swingbed for few days( requesting evalaution), encouraging IS and watched/assisted in teaching and goals. anemia stable and improving. Current Visit: Yes (2) Afib Status: Chronic Assessment and plan: rate controlled and not too low with h/o sick sinus Current Visit: Yes (3) Hypertension Status: Chronic Assessment and plan: controlled current iteration of medications Current Visit: Yes (4) Sick sinus syndrome Status: Chronic Current Visit: Yes (5) Supratherapeutic INR Status: Resolved Assessment and plan: reanticoagulating Current Visit: Yes - Time Spent With Patient Total time spent with greater than 50% in coordination of care (as documented) at patient's floor/unit and/or counseling patient: Estimated anticipated discharge: Likely swing bed sun or sun IM: PN Subjective General: no fatigue, no good appetite, no fever, no chills HEENT: no headache, no sore throat Cardiovascular: no chest pain, no chest pressure, no palpitations, no dizziness Respiratory: other (admits to mouth breathing at night), no cough, no SOB Gastrointestinal: no abdominal pain, no vomiting, no constipation Genitourinary: no dysuria Musculoskeletal: pain (mild, right leg), weakness Neurological: no headache IM: PN Objective Exam - I&O/Vital Signs I&O: Intake & Output 12/24/16 12/25/16 12/25/16 21:59 05:59 13:59 Intake Total 930 300 Output Total 525 325 Balance 405 -25 Intake: Oral 930 300 Output: Urine 525 325 Other: Stool Size Large Small Stool Characteristics Formed Soft Formed Liquid Brown Voiding Method Toilet Bedside Commode # Bowel Movements 1 2 Vital Signs: Last Vital Signs Temp 36.4 C 12/25/16 06:57 Pulse 67 12/25/16 06:57 Resp 20 12/25/16 06:57 BP 122/52 12/25/16 06:57 Pulse Ox 96 12/25/16 06:57 Oxygen Flow Rate 2 Oxygen Delivery Method Nasal Cannula - Constitutional General appearance: Present: cooperative. Absent: acute distress - Head Head exam: Present: atraumatic, normal inspection, normocephalic - Eye Eye exam: Present: EOMI, normal appearance. Absent: conjunctival injection, other - ENT ENT exam: Present: mucous membranes moist, normal oropharynx - Neck Neck exam: Present: normal inspection. Absent: tenderness - Respiratory Respiratory exam: Present: CTAB. Absent: accessory muscle use - Cardiovascular Cardiovascular exam: Present: RRR, systolic murmur - GI/Abdominal GI/Abdominal exam: Present: soft. Absent: tenderness - Extremities Exam Extremities exam: Present: edema (bilateral but left (noninjured side) worse than right (chronic per patient)), tenderness (hip/femur). Absent: calf tenderness - Neurological Exam Neurological exam: Present: alert, CN II-XII intact, oriented X3 - Psychiatric Psychiatric exam: Present: normal affect, normal mood - Allied Health Notes Allied health notes reviewed: nursing, PT - Lab Labs: Laboratory Last Values WBC 7.4 X 10^3uL (3.9-10.7) 12/23/16 06:55 RBC 3.74 X 10^6uL (4.20-6.10) L 12/23/16 06:55 Hgb 11.4 g/dL (12.0-16.0) L 12/25/16 05:50 Hct 33.8 % (36.0-48.0) L 12/25/16 05:50 MCV 88.0 fL (80.0-100.0) 12/23/16 06:55 MCH 30.1 pg (29.0-35.0) 12/23/16 06:55 MCHC 34.3 g/dL (32.0-36.0) 12/23/16 06:55 RDW 12.9 % (11.5-14.5) 12/23/16 06:55 Plt Count 138 X 10^3uL (130-440) 12/23/16 06:55 MPV 8.4 fL (7.4-10.4) 12/23/16 06:55 Neutrophils % 81.1 % (54.0-75.0) H 12/23/16 06:55 Lymphocytes % 5.3 % (20.0-40.0) L 12/23/16 06:55 Eosinophils % 3.6 % (0.0-6.0) 12/23/16 06:55 Basophils % 0.4 % (0.0-2.0) 12/23/16 06:55 Neutrophils # 6.0 X 10^3uL (2.6-6.7) 12/23/16 06:55 Lymphocytes # 0.4 X 10^3uL (0.8-3.8) L 12/23/16 06:55 Monocytes 9.6 % (2.0-10.0) 12/23/16 06:55 Monocytes # 0.7 X 10^3uL (0.2-1.0) 12/23/16 06:55 Eosinophils # 0.3 X 10^3uL (0.0-0.4) 12/23/16 06:55 Basophils # 0.0 X 10^3uL (0.0-0.1) 12/23/16 06:55 PT 16.8 sec (13.0-16.6) H 12/24/16 05:40 Capillary INR 1.3 (0.8-1.2) H 12/22/16 11:45 INR 1.3 12/24/16 05:40 Sodium 137 mmol/L (137-145) 12/23/16 06:55 Potassium 4.1 mmol/L (3.5-5.1) 12/23/16 06:55 Chloride 108 mmol/L (98-107) H 12/23/16 06:55 Carbon Dioxide 27 mmol/L (22-30) 12/23/16 06:55 BUN 16 mg/dL (7-17) 12/23/16 06:55 Creatinine 0.9 mg/dL (0.5-1.0) 12/23/16 06:55 GFR Calculation Not Reportable 12/23/16 06:55 Glucose 115 mg/dL (70-100) H 12/23/16 06:55 Calcium 8.1 mg/dL (8.4-10.2) L 12/23/16 06:55 Total Bilirubin 0.9 mg/dL (0.2-1.3) 12/23/16 06:55 Direct Bilirubin 0.2 mg/dL (0.0-0.4) 12/20/16 18:53 AST 21 U/L (14-36) 12/23/16 06:55 ALT 29 U/L (9-52) 12/23/16 06:55 Alkaline Phosphatase 47 U/L (38-126) 12/23/16 06:55 Total Protein 5.5 g/dL (6.3-8.2) L 12/23/16 06:55 Albumin 2.7 g/dL (3.5-5.0) L 12/23/16 06:55 Albumin/Globulin Ratio 1.0 12/23/16 06:55 ABO Group Type a 12/22/16 05:00 Rh Factor Negative 12/22/16 05:00 Antibody Screen Negative 12/22/16 05:00 (3) Hypertension Qualifiers: Hypertension type: essential hypertension Qualified Code(s): I10 - Essential (primary) hypertension
[2016-12-25 09:10] LABS: INR 1.2
[2016-12-25] MEDS: TIMOLOL 0.5% EACHEYE SCH (12:50)
[2016-12-25] MEDS ORDERED: WARFARIN SODIUM 5 MG TABLET PO SCH (16:00)
[2016-12-25] MEDS: ATORVASTATIN CALCIUIM 40 MG TABLET PO SCH (20:37)
[2016-12-25] MEDS: LATANOPROST 0.005% EACHEYE SCH (20:49)
[2016-12-26] MEDS: Pilocarpine 2% Opth Soln EACHEYE SCH ×2 (06:57→13:24)
[2016-12-26] MEDS: BRIMONIDINE 0.1% EACHEYE SCH ×2 (06:57→13:08)
[2016-12-26] MEDS: BRINZOLAMIDE 1% EACHEYE SCH ×2 (06:57→13:17)
[2016-12-26] MEDS: CELECOXIB 100 MG CAPSULE PO SCH (08:31)
[2016-12-26] MEDS: CALCIUM/VIT D 600 MG/400 IU 1 TAB TABLET PO SCH (08:31)
[2016-12-26] MEDS: ENOXAPARIN SODIUM 40 MG/0.4 ML SYR SUBCUT SCH (08:32)
[2016-12-26] MEDS: DOCUSATE SODIUM 100 MG CAPSULE PO SCH (08:32)
[2016-12-26] MEDS: ASCORBIC ACID 500 MG TABLET PO SCH (08:32)
[2016-12-26] MEDS: MULTIVITAMINS THERAPEUTIC 1 TABLET PO SCH (08:33)
[2016-12-26] MEDS ORDERED: ENOXAPARIN SODIUM 40 MG/0.4 ML SYR SUBCUT SCH (09:30)
[2016-12-26 11:22] VITALS: BP 99/81; PULSE 66; RESP 18; TEMP 99.1; O2SAT 92
--- NOTE | 2016-12-26 11:27 | PROGRESS NOTE: Orthopedics ---
Orthopedic PN Subjective - Subjective Principal Diagnosis: post op hemiarthroplasty right hip Post-op Day: 4 Interval history: Pt feels ell. No new complaints Ortho PN Objective Exam - Latest Vital Signs and I&O Latest Vital Signs/I&O: Vital Signs Temp 37.3 C 12/26/16 11:00 Pulse 66 12/26/16 11:00 Resp 18 12/26/16 11:00 BP 99/81 12/26/16 11:00 Pulse Ox 92 12/26/16 11:00 Intake & Output 12/25/16 12/26/16 12/26/16 17:59 05:59 17:59 Intake Total 1060 270 Output Total 200 Balance 1060 70 Weight 86.183 kg Intake: Oral 1060 270 Output: Urine 200 Other: Urine Appearance Clear Clear Clear Urine Color Yellow Light Rhina Light Rhina Stool Size Small Small Small Stool Characteristics Soft Soft Soft Voiding Method Toilet Toilet Toilet # Voids 4 2 # Bowel Movements 1 - Post-Operative Exam Drainage Amount: minimal Drainage Description: serosanguineous Active Motor: intact Sensation: intact - Lab Labs: Laboratory Last Values WBC 7.4 X 10^3uL (3.9-10.7) 12/23/16 06:55 RBC 3.74 X 10^6uL (4.20-6.10) L 12/23/16 06:55 Hgb 11.4 g/dL (12.0-16.0) L 12/25/16 05:50 Hct 33.8 % (36.0-48.0) L 12/25/16 05:50 MCV 88.0 fL (80.0-100.0) 12/23/16 06:55 MCH 30.1 pg (29.0-35.0) 12/23/16 06:55 MCHC 34.3 g/dL (32.0-36.0) 12/23/16 06:55 RDW 12.9 % (11.5-14.5) 12/23/16 06:55 Plt Count 138 X 10^3uL (130-440) 12/23/16 06:55 MPV 8.4 fL (7.4-10.4) 12/23/16 06:55 Neutrophils % 81.1 % (54.0-75.0) H 12/23/16 06:55 Lymphocytes % 5.3 % (20.0-40.0) L 12/23/16 06:55 Eosinophils % 3.6 % (0.0-6.0) 12/23/16 06:55 Basophils % 0.4 % (0.0-2.0) 12/23/16 06:55 Neutrophils # 6.0 X 10^3uL (2.6-6.7) 12/23/16 06:55 Lymphocytes # 0.4 X 10^3uL (0.8-3.8) L 12/23/16 06:55 Monocytes 9.6 % (2.0-10.0) 12/23/16 06:55 Monocytes # 0.7 X 10^3uL (0.2-1.0) 12/23/16 06:55 Eosinophils # 0.3 X 10^3uL (0.0-0.4) 12/23/16 06:55 Basophils # 0.0 X 10^3uL (0.0-0.1) 12/23/16 06:55 PT 16.3 sec (13.0-16.6) 12/25/16 06:05 Capillary INR 1.4 (0.8-1.2) H 12/26/16 06:05 INR 1.2 12/25/16 06:05 Sodium 137 mmol/L (137-145) 12/23/16 06:55 Potassium 4.1 mmol/L (3.5-5.1) 12/23/16 06:55 Chloride 108 mmol/L (98-107) H 12/23/16 06:55 Carbon Dioxide 27 mmol/L (22-30) 12/23/16 06:55 BUN 16 mg/dL (7-17) 12/23/16 06:55 Creatinine 0.9 mg/dL (0.5-1.0) 12/23/16 06:55 GFR Calculation Not Reportable 12/23/16 06:55 Glucose 115 mg/dL (70-100) H 12/23/16 06:55 Calcium 8.1 mg/dL (8.4-10.2) L 12/23/16 06:55 Total Bilirubin 0.9 mg/dL (0.2-1.3) 12/23/16 06:55 Direct Bilirubin 0.2 mg/dL (0.0-0.4) 12/20/16 18:53 AST 21 U/L (14-36) 12/23/16 06:55 ALT 29 U/L (9-52) 12/23/16 06:55 Alkaline Phosphatase 47 U/L (38-126) 12/23/16 06:55 Total Protein 5.5 g/dL (6.3-8.2) L 12/23/16 06:55 Albumin 2.7 g/dL (3.5-5.0) L 12/23/16 06:55 Albumin/Globulin Ratio 1.0 12/23/16 06:55 ABO Group Type a 12/22/16 05:00 Rh Factor Negative 12/22/16 05:00 Antibody Screen Negative 12/22/16 05:00 Assessment and Plan-Ortho - Date of Encounter Date of Encounter: 12/26/16 (1) Fracture of femoral neck, right, closed Status: Acute Assessment and plan: Doing well, slowly improving. Plan: Continue PT, mobilization Current Visit: Yes Estimated anticipated discharge: Likely swing bed mon or tue
--- NOTE | 2016-12-26 12:59 | PROGRESS NOTE: IM APSO ---
Assessment and Plan - Date of Encounter Date of Encounter: 12/26/16 (1) Fracture of femoral neck, right, closed Status: Acute Assessment and plan: Dr Iqbal PT Possible swingbed tomorrow Current Visit: Yes (2) Afib Status: Chronic Assessment and plan: Warfarin, Lovenox Current Visit: Yes (3) Hypertension Status: Chronic Current Visit: Yes (4) Sick sinus syndrome Status: Chronic Current Visit: Yes - Time Spent With Patient Total time spent with greater than 50% in coordination of care (as documented) at patient's floor/unit and/or counseling patient: Estimated anticipated discharge: Likely swing bed mon or sun IM: PN Subjective Cardiovascular: no chest pain Respiratory: no cough, no SOB Gastrointestinal: no abdominal pain Genitourinary: no dysuria Musculoskeletal: pain (mild, right leg), weakness IM: PN Objective Exam - I&O/Vital Signs I&O: Intake & Output 12/25/16 12/26/16 12/26/16 21:59 05:59 13:59 Intake Total 1060 270 Output Total 200 Balance 1060 70 Intake: Oral 1060 270 Output: Urine 200 Other: Urine Appearance Clear Clear Clear Urine Color Yellow Light Rhina Light Rhina Stool Size Small Small Stool Characteristics Soft Soft Voiding Method Toilet Toilet Toilet # Voids 4 2 # Bowel Movements 1 Vital Signs: Last Vital Signs Temp 37.3 C 12/26/16 11:00 Pulse 66 12/26/16 11:00 Resp 18 12/26/16 11:00 BP 99/81 12/26/16 11:00 Pulse Ox 92 12/26/16 11:00 Oxygen Flow Rate 2 Oxygen Delivery Method Nasal Cannula - Constitutional General appearance: Absent: acute distress - Respiratory Respiratory exam: Absent: clear - Cardiovascular Cardiovascular exam: Present: RRR, systolic murmur - GI/Abdominal GI/Abdominal exam: Present: soft. Absent: tenderness - Extremities Exam Extremities exam: Present: tenderness (hip/femur). Absent: calf tenderness, edema (bilateral but left (noninjured side) worse than right (chronic per patient)) - Lab Labs: Laboratory Last Values WBC 7.4 X 10^3uL (3.9-10.7) 12/23/16 06:55 RBC 3.74 X 10^6uL (4.20-6.10) L 12/23/16 06:55 Hgb 11.4 g/dL (12.0-16.0) L 12/25/16 05:50 Hct 33.8 % (36.0-48.0) L 12/25/16 05:50 MCV 88.0 fL (80.0-100.0) 12/23/16 06:55 MCH 30.1 pg (29.0-35.0) 12/23/16 06:55 MCHC 34.3 g/dL (32.0-36.0) 12/23/16 06:55 RDW 12.9 % (11.5-14.5) 12/23/16 06:55 Plt Count 138 X 10^3uL (130-440) 12/23/16 06:55 MPV 8.4 fL (7.4-10.4) 12/23/16 06:55 Neutrophils % 81.1 % (54.0-75.0) H 12/23/16 06:55 Lymphocytes % 5.3 % (20.0-40.0) L 12/23/16 06:55 Eosinophils % 3.6 % (0.0-6.0) 12/23/16 06:55 Basophils % 0.4 % (0.0-2.0) 12/23/16 06:55 Neutrophils # 6.0 X 10^3uL (2.6-6.7) 12/23/16 06:55 Lymphocytes # 0.4 X 10^3uL (0.8-3.8) L 12/23/16 06:55 Monocytes 9.6 % (2.0-10.0) 12/23/16 06:55 Monocytes # 0.7 X 10^3uL (0.2-1.0) 12/23/16 06:55 Eosinophils # 0.3 X 10^3uL (0.0-0.4) 12/23/16 06:55 Basophils # 0.0 X 10^3uL (0.0-0.1) 12/23/16 06:55 PT 16.3 sec (13.0-16.6) 12/25/16 06:05 Capillary INR 1.4 (0.8-1.2) H 12/26/16 06:05 INR 1.2 12/25/16 06:05 Sodium 137 mmol/L (137-145) 12/23/16 06:55 Potassium 4.1 mmol/L (3.5-5.1) 12/23/16 06:55 Chloride 108 mmol/L (98-107) H 12/23/16 06:55 Carbon Dioxide 27 mmol/L (22-30) 12/23/16 06:55 BUN 16 mg/dL (7-17) 12/23/16 06:55 Creatinine 0.9 mg/dL (0.5-1.0) 12/23/16 06:55 GFR Calculation Not Reportable 12/23/16 06:55 Glucose 115 mg/dL (70-100) H 12/23/16 06:55 Calcium 8.1 mg/dL (8.4-10.2) L 12/23/16 06:55 Total Bilirubin 0.9 mg/dL (0.2-1.3) 12/23/16 06:55 Direct Bilirubin 0.2 mg/dL (0.0-0.4) 12/20/16 18:53 AST 21 U/L (14-36) 12/23/16 06:55 ALT 29 U/L (9-52) 12/23/16 06:55 Alkaline Phosphatase 47 U/L (38-126) 12/23/16 06:55 Total Protein 5.5 g/dL (6.3-8.2) L 12/23/16 06:55 Albumin 2.7 g/dL (3.5-5.0) L 12/23/16 06:55 Albumin/Globulin Ratio 1.0 12/23/16 06:55 ABO Group Type a 12/22/16 05:00 Rh Factor Negative 12/22/16 05:00 Antibody Screen Negative 12/22/16 05:00 (3) Hypertension Qualifiers: Hypertension type: essential hypertension Qualified Code(s): I10 - Essential (primary) hypertension
[2016-12-26] MEDS: TIMOLOL 0.5% EACHEYE SCH (13:35)
[2016-12-26] MEDS ORDERED: ENOXAPARIN SODIUM 40 MG/0.4 ML SYR SUBCUT ONE (14:18)
--- NOTE | 2016-12-26 15:23 | DC SUMMARY: IM Note ---
Discharge Summary: IM/Peds Provider: Date of Admission: 12/21/16 Admitting Provider: BRITTNEY CHAPMAN MD Attending Provider: MEGAN HANEY MD Discharging Provider: HAILEY BURNHAM DO Primary Care Provider: MEGAN HANEY MD Discharge Date: 12/26/16 Admit to Swing bed 12/26/16 Dictaction system is not available at time of transition so please include this note as both discharge summary as well as Swing Bed H+P. CC: S/P Right hemiarthroplasty of hip HPI: Patient is an 86 yo F who was admitted on 12/20 after fall at home and resultant femoral neck fracture. She was observed over the day on 12/21 as her INR was supratherapeutic and needed reversal prior to surgical intervention. On 12/22 patient was taken to OR for hemiarthroplasty with Dr. Iqbal. She has done well post operatively and at this time is stable to transition to swing bed for further rehabilitation. Please see original H+P for full details of past medical history. ROS: General- mildly fatigued but denies significant weakness, no dizziness HEENT: chronic vision changes CV: No chest pain/palpitations RESP: New oxygen requirement but denies shortness of breath ABD: Denies Diarrhea/constipation, no pain EXT: expected post operative pain but otherwise feeling well NEURO: No focal changes PYSCH: No significant anxiety or confusion with hospitalization Consults: 12/22/16 16:51 Nutrition/Dietary Consult [CONS] Routine Reason: Please help maximize Fe intake - Diagnosis (1) Fracture of femoral neck, right, closed Status: Acute (2) Supratherapeutic INR Status: Resolved (3) Afib Status: Chronic (4) Sick sinus syndrome Status: Chronic (5) Hypertension Status: Chronic Qualifiers: Hypertension type: essential hypertension Qualified Code(s): I10 - Essential (primary) hypertension (6) Glaucoma Status: Chronic Qualifiers: Laterality: bilateral (7) Hypothyroid Status: Chronic (8) Hyperlipemia Status: Chronic (9) Anxiety Status: Acute (10) Chronic renal insufficiency Status: Chronic (11) Hypoxia Status: Acute Hospital Course: Patient admitted 12/20 with right femoral neck fracture, s/p hemiarthroplasty on 12/22 (delay due to supratherapeutic INR). Since surgery she has continued to do well but with chronic medical issues and advance age, was recommended for further rehabilitation prior to going home. Did did have a drop in h/h but now improving. INR was 1.4 so will continue lovenox for bridge until therapeutic. Do have serial INRs ordered until appropriate dosing noted. Nicki continues to be hypoxic- likely combination of anemia, decreased activity and mouth breathing. Will continue supplemental oxygen and reassess if needs to go home with oxygen therapy. Post op rehab- will continue to work with PT/OT and daughter is working to get home ready. Appreciate input from nursing and therapies as to when patient may be ready for discharge. Her atrial fibrillation is currently rate controlled with regimen. Blood pressure noted to be on lower end of normal but patient asymptomatic. Will need to continue to monitor if further medication adjustments are needed. Continue her home glaucoma eye drops. - Time Spent with Patient Total time spent providing and/or coordinating discharge services: Specific discharge activities: transition to swing bed Discharge - Patient/Caregiver Discharge Instructions Activity Level: Per recommendation of orthopedics/PT/OT Diet: Regular Additional Instructions: Transition to swing bed for ongoing therapy. Overall discharge status: patient is progressing back to baseline Disposition: HOME, SELF-CARE Discharge Summary Data - Medication History Medication History: Home Medications Ascorbate Calcium [Vitamin C] 500 mg PO DAILY 12/20/16 Atorvastatin Calcium [Lipitor*] 40 mg PO DAILY 12/20/16 Brimonidine 0.1% Ophth [Alphagan P 0.1% Ophth Soln*] 1 drop OPHTHALMIC 0700,1200 ,1700 12/20/16 Brinzolamide 1% Ophth [Azopt 1% Ophth Susp*] 1 drop OPHTHALMIC 0700,1200,1700 Calcium Carbonate/Vitamin D3 [Calcium 600-Vit D3 800 Tab] 1 tab PO DAILY Enalapril Maleate [Vasotec*] 2.5 mg PO BID 12/20/16 Furosemide [Lasix*] 20 mg PO WEEKLY 12/20/16 Latanoprost 0.005% Ophth [Xalatan 0.005% Ophth Soln*] 1 drop EACHEYE HS Levothyroxine [Synthroid*] 75 mcg PO DAILY 12/20/16 Pilocarpine HCl 1 drop OPHTHALMIC 0700,1200,1700,2100 12/20/16 Timolol 0.5% Ophth [Timolol 0.5% Ophth Soln*] 1 drop EACHEYE DAILY@1200 Vit C/E/Zn/Coppr/Lutein/Zeaxan [Preservision Areds 2 Softgel] 1 tab PO DAILY Warfarin Sodium [Coumadin*] 5 mg PO [id number] 12/20/16 Warfarin Sodium [Coumadin] 7.5 mg PO 3XW 12/20/16 Procedures and tests throughout hospitalization: Completed Lab Orders 12/21/16 22:20 INR W/ CAPI DRAW [HEM] Routine 12/22/16 05:00 ABO GROUP [HEM] AMDRAW ANTIBODY SCREEN [HEM] AMDRAW RH TYPE [HEM] AMDRAW 12/22/16 10:15 INR W/ CAPI DRAW [HEM] Routine 12/22/16 11:45 Finger Stick INR [INR W/ CAPI DRAW] [HEM] Stat 12/23/16 06:55 CBC AUTO DIF, MDIF/RMOR IF IND [HEM] AMDRAW PROTIME/INR [HEM] AMDRAW cmp [COMPREHENSIVE METABOLIC PANEL] [CHEM] AMDRAW 12/24/16 05:40 HGB & HCT PANEL [HEM] AMDRAW PROTIME/INR [HEM] Routine 12/25/16 05:50 HGB & HCT PANEL [HEM] AMDRAW 12/25/16 06:05 PT/INR [PROTIME/INR] [HEM] AMDRAW 12/26/16 06:05 INR W/ CAPI DRAW [HEM] Stat Completed Imaging Orders 12/22/16 16:51 PELVIS X-RAY;1 OR 2V 13226 [RAD] Stat Pending Orders 12/20/16 16:16 Activity: Bedrest . 12/21/16 15:41 Admit: Inpatient Routine 12/22/16 00:28 Medications with water . 12/22/16 13:43 Sadie hugger if temp <34 C PRN Did pt have a spinal/epidural? . Maintain IV access post spinal CONTINUOUS Monitor End Tidal CO2 CONTINUOUS Narcan @ bedside x24h after sp .x24hrs Notify Anesthesia . Vital Signs Q1HX12,Q2H Warm blankets if temp<36 C PRN 12/22/16 16:51 Admit: Inpatient Routine VTE Prophylaxis Scoring/ Ordering Routine Activity: Hip Abductor Pillow WHILE IN BED Activity: OOB with Assist TID Activity: Turn and position Q2H Apply ice to affected area . Circulatory Sensory Motor Asse 0000,0400,0800,1200,1600,2000 Clinical Pathway: updt in cht QSHIFT Did pt have a spinal/epidural? . Incentive Spirometry Q1H Maintain IV access post spinal CONTINUOUS Narcan @ bedside x24h after sp .x24hrs Notify Physician . Oxygen by Nasal Cannula TITRATE TO >90% Physician to change dressing PRN Sequential Compression Device IN BED OR CHAIR Total Hip Precaution CONTINUOUS Turn, Cough, and Deep Breathe Q2H Vital Signs ROUTINE VITALS (Q4H) Ict Trainer Consult [CM] Routine 12/23/16 Occupation Therapy Eval and Treat [OT] Routine 12/23/16 15:50 Physical Therapy Eval and Treatment [PT] Routine 12/24/16 07:41 LAURENCE Hose . 12/26/16 11:30 Dressing Change PRN 12/26/16 11:31 Shower [May shower] PRN 12/26/16 14:27 Discharge ONCE Labs on day of discharge: Labs from last 24 hours 12/26/16 06:05 PT Cancelled Capillary INR 1.4 H INR Cancelled IM: Discharge Physical Exam - I&O/Vital Signs I&O: Intake & Output 12/26/16 12/26/16 12/26/16 05:59 13:59 21:59 Intake Total 270 Output Total 200 Balance 70 Intake: Oral 270 Output: Urine 200 Other: Urine Appearance Clear Clear Urine Color Light Rhina Light Rhina Stool Size Small Stool Characteristics Soft Voiding Method Toilet Toilet # Voids 2 Vital Signs: Last Vital Signs Temp 37.3 C 12/26/16 11:00 Pulse 66 12/26/16 11:00 Resp 18 12/26/16 11:00 BP 99/81 12/26/16 11:00 Pulse Ox 92 12/26/16 11:00 Oxygen Flow Rate 2 Oxygen Delivery Method Nasal Cannula - Constitutional General appearance: Absent: acute distress Exam: Patient is dressed in regular clothes and well appearing with no concerns. - Head Head exam: Present: atraumatic, normal inspection, normocephalic - Eye Eye exam: Present: EOMI, normal appearance. Absent: conjunctival injection, other - ENT ENT exam: Present: mucous membranes moist, normal oropharynx - Neck Neck exam: Present: normal inspection. Absent: tenderness - Respiratory Respiratory exam: Absent: clear - Cardiovascular Cardiovascular exam: Present: RRR, systolic murmur - GI/Abdominal GI/Abdominal exam: Present: soft. Absent: tenderness - Extremities Exam Extremities exam: Present: tenderness (hip/femur). Absent: calf tenderness, edema (bilateral but left (noninjured side) worse than right (chronic per patient)) - Neurological Exam Neurological exam: Present: alert, CN II-XII intact, oriented X3 - Psychiatric Psychiatric exam: Present: normal affect, normal mood - Allied Health Notes Allied health notes reviewed: nursing, PT
[2016-12-26] MEDS ORDERED: ENOXAPARIN SODIUM 80 MG/0.8 ML SYR SUBCUT SCH (21:00)
== END 2016-12-26 14:45 | disposition home or self-care (01) | DRG 470 ==
LOC: ER 15:22 → INTOOBSV 16:58 → IN 16:58 → OBSVTOIN 12-21 15:41
PROVIDERS: ADMIT Family Medicine; ATTEND Internal Medicine
PROC: 0SR Lower Joints, Replacement (ICD-10-PCS; principal; 2016-12-22)
DX: S72.041A Displaced fracture of base of neck of right femur, initial encounter for closed fracture (principal); W01.0XXA Fall on same level from slipping, tripping and stumbling without subsequent striking against object, initial encounter; I48.2 Chronic atrial fibrillation; Z86.73 Personal history of transient ischemic attack (TIA), and cerebral infarction without residual deficits; E78.5 Hyperlipidemia, unspecified; E03.9 Hypothyroidism, unspecified; M54.5 Low back pain; M35.3 Polymyalgia rheumatica; M85.89 Other specified disorders of bone density and structure, multiple sites; R31.21 Asymptomatic microscopic hematuria; Z85.3 Personal history of malignant neoplasm of breast; I10 Essential (primary) hypertension; Z79.899 Other long term (current) drug therapy; Z74.3 Need for continuous supervision
CPT/HCPCS: 36415; 71010; 72170; 73502; 80048; 80053; 80076; 85014; 85018; 85025; 85027; 85610; 86850; 86900; 86901; 93005; 94667; 99219; 99285; A0425; A0427; C1776; E0555; G0378; J0171; J0461; J0690; J1642; J1650; J1885; J2250; J2270; J2405; J2795; J3010; J3430; J7030

== ENCOUNTER 2016-12-26 14:47 | Inpatient (IN) | payer MEDICARE, BC ==
[2016-12-26] MEDS ORDERED: MAGNESIUM HYDROXIDE 30 ML UDC PO PRN (14:48)
[2016-12-26] MEDS ORDERED: POLYETHYLENE GLYCOL 3350 17 GM POWD.PACK PO PRN (14:48)
[2016-12-26] MEDS ORDERED: MAG-AL PLUS XS SUSP 30 ML UDC PO PRN (14:48)
[2016-12-26] MEDS ORDERED: BISACODYL 10 MG SUPP.RECT RECTAL PRN (14:48)
[2016-12-26] MEDS ORDERED: WARFARIN SODIUM 5 MG TABLET PO SCH (16:00)
--- NOTE | 2016-12-26 17:06 | HISTORY & PHYSICAL ---
Discharge Summary: IM/Peds Provider: Date of Admission: 12/21/16 Admitting Provider: BRITTNEY CHAPMAN MD Attending Provider: MEGAN HANEY MD Discharging Provider: HAILEY BURNHAM DO Primary Care Provider: MEGAN HANEY MD Discharge Date: 12/26/16 Admit to Swing bed 12/26/16 Dictaction system is not available at time of transition so please include this note as both discharge summary as well as Swing Bed H+P. CC: S/P Right hemiarthroplasty of hip HPI: Patient is an 86 yo F who was admitted on 12/20 after fall at home and resultant femoral neck fracture. She was observed over the day on 12/21 as her INR was supratherapeutic and needed reversal prior to surgical intervention. On 12/22 patient was taken to OR for hemiarthroplasty with Dr. Iqbal. She has done well post operatively and at this time is stable to transition to swing bed for further rehabilitation. Please see original H+P for full details of past medical history. ROS: General- mildly fatigued but denies significant weakness, no dizziness HEENT: chronic vision changes CV: No chest pain/palpitations RESP: New oxygen requirement but denies shortness of breath ABD: Denies Diarrhea/constipation, no pain EXT: expected post operative pain but otherwise feeling well NEURO: No focal changes PYSCH: No significant anxiety or confusion with hospitalization Consults: 12/22/16 16:51 Nutrition/Dietary Consult [CONS] Routine Reason: Please help maximize Fe intake - Diagnosis (1) Fracture of femoral neck, right, closed Status: Acute (2) Supratherapeutic INR Status: Resolved (3) Afib Status: Chronic (4) Sick sinus syndrome Status: Chronic (5) Hypertension Status: Chronic Qualifiers: Hypertension type: essential hypertension Qualified Code(s): I10 - Essential (primary) hypertension (6) Glaucoma Status: Chronic Qualifiers: Laterality: bilateral (7) Hypothyroid Status: Chronic (8) Hyperlipemia Status: Chronic (9) Anxiety Status: Acute (10) Chronic renal insufficiency Status: Chronic (11) Hypoxia Status: Acute Hospital Course: Patient admitted 12/20 with right femoral neck fracture, s/p hemiarthroplasty on 12/22 (delay due to supratherapeutic INR). Since surgery she has continued to do well but with chronic medical issues and advance age, was recommended for further rehabilitation prior to going home. Did did have a drop in h/h but now improving. INR was 1.4 so will continue lovenox for bridge until therapeutic. Do have serial INRs ordered until appropriate dosing noted. Nicki continues to be hypoxic- likely combination of anemia, decreased activity and mouth breathing. Will continue supplemental oxygen and reassess if needs to go home with oxygen therapy. Post op rehab- will continue to work with PT/OT and daughter is working to get home ready. Appreciate input from nursing and therapies as to when patient may be ready for discharge. Her atrial fibrillation is currently rate controlled with regimen. Blood pressure noted to be on lower end of normal but patient asymptomatic. Will need to continue to monitor if further medication adjustments are needed. Continue her home glaucoma eye drops. - Time Spent with Patient Total time spent providing and/or coordinating discharge services: Specific discharge activities: transition to swing bed Discharge - Patient/Caregiver Discharge Instructions Activity Level: Per recommendation of orthopedics/PT/OT Diet: Regular Additional Instructions: Transition to swing bed for ongoing therapy. Overall discharge status: patient is progressing back to baseline Disposition: HOME, SELF-CARE Discharge Summary Data - Medication History Medication History: Home Medications Ascorbate Calcium [Vitamin C] 500 mg PO DAILY 12/20/16 Atorvastatin Calcium [Lipitor*] 40 mg PO DAILY 12/20/16 Brimonidine 0.1% Ophth [Alphagan P 0.1% Ophth Soln*] 1 drop OPHTHALMIC 0700,1200 ,1700 12/20/16 Brinzolamide 1% Ophth [Azopt 1% Ophth Susp*] 1 drop OPHTHALMIC 0700,1200,1700 Calcium Carbonate/Vitamin D3 [Calcium 600-Vit D3 800 Tab] 1 tab PO DAILY Enalapril Maleate [Vasotec*] 2.5 mg PO BID 12/20/16 Furosemide [Lasix*] 20 mg PO WEEKLY 12/20/16 Latanoprost 0.005% Ophth [Xalatan 0.005% Ophth Soln*] 1 drop EACHEYE HS Levothyroxine [Synthroid*] 75 mcg PO DAILY 12/20/16 Pilocarpine HCl 1 drop OPHTHALMIC 0700,1200,1700,2100 12/20/16 Timolol 0.5% Ophth [Timolol 0.5% Ophth Soln*] 1 drop EACHEYE DAILY@1200 Vit C/E/Zn/Coppr/Lutein/Zeaxan [Preservision Areds 2 Softgel] 1 tab PO DAILY Warfarin Sodium [Coumadin*] 5 mg PO [id number] 12/20/16 Warfarin Sodium [Coumadin] 7.5 mg PO 3XW 12/20/16 Procedures and tests throughout hospitalization: Completed Lab Orders 12/21/16 22:20 INR W/ CAPI DRAW [HEM] Routine 12/22/16 05:00 ABO GROUP [HEM] AMDRAW ANTIBODY SCREEN [HEM] AMDRAW RH TYPE [HEM] AMDRAW 12/22/16 10:15 INR W/ CAPI DRAW [HEM] Routine 12/22/16 11:45 Finger Stick INR [INR W/ CAPI DRAW] [HEM] Stat 12/23/16 06:55 CBC AUTO DIF, MDIF/RMOR IF IND [HEM] AMDRAW PROTIME/INR [HEM] AMDRAW cmp [COMPREHENSIVE METABOLIC PANEL] [CHEM] AMDRAW 12/24/16 05:40 HGB & HCT PANEL [HEM] AMDRAW PROTIME/INR [HEM] Routine 12/25/16 05:50 HGB & HCT PANEL [HEM] AMDRAW 12/25/16 06:05 PT/INR [PROTIME/INR] [HEM] AMDRAW 12/26/16 06:05 INR W/ CAPI DRAW [HEM] Stat Completed Imaging Orders 12/22/16 16:51 PELVIS X-RAY;1 OR 2V [id number] [RAD] Stat Pending Orders 12/20/16 16:16 Activity: Bedrest . 12/21/16 15:41 Admit: Inpatient Routine 12/22/16 00:28 Medications with water . 12/22/16 13:43 Sadie hugger if temp <34 C PRN Did pt have a spinal/epidural? . Maintain IV access post spinal CONTINUOUS Monitor End Tidal CO2 CONTINUOUS Narcan @ bedside x24h after sp .x24hrs Notify Anesthesia . Vital Signs Q1HX12,Q2H Warm blankets if temp<36 C PRN 12/22/16 16:51 Admit: Inpatient Routine VTE Prophylaxis Scoring/ Ordering Routine Activity: Hip Abductor Pillow WHILE IN BED Activity: OOB with Assist TID Activity: Turn and position Q2H Apply ice to affected area . Circulatory Sensory Motor Asse 0000,0400,0800,1200,1600,2000 Clinical Pathway: updt in cht QSHIFT Did pt have a spinal/epidural? . Incentive Spirometry Q1H Maintain IV access post spinal CONTINUOUS Narcan @ bedside x24h after sp .x24hrs Notify Physician . Oxygen by Nasal Cannula TITRATE TO >90% Physician to change dressing PRN Sequential Compression Device IN BED OR CHAIR Total Hip Precaution CONTINUOUS Turn, Cough, and Deep Breathe Q2H Vital Signs ROUTINE VITALS (Q4H) [place] Operator Consult [CM] Routine 12/23/16 Occupation Therapy Eval and Treat [OT] Routine 12/23/16 15:50 Physical Therapy Eval and Treatment [PT] Routine 12/24/16 07:41 LAURENCE Hose . 12/26/16 11:30 Dressing Change PRN 12/26/16 11:31 Shower [May shower] PRN 12/26/16 14:27 Discharge ONCE Labs on day of discharge: Labs from last 24 hours 12/26/16 06:05 PT Cancelled Capillary INR 1.4 H INR Cancelled IM: Discharge Physical Exam - I&O/Vital Signs I&O: Intake & Output 12/26/16 12/26/16 12/26/16 05:59 13:59 21:59 Intake Total 270 Output Total 200 Balance 70 Intake: Oral 270 Output: Urine 200 Other: Urine Appearance Clear Clear Urine Color Light Rhina Light Rhina Stool Size Small Stool Characteristics Soft Voiding Method Toilet Toilet # Voids 2 Vital Signs: Last Vital Signs Temp 37.3 C 12/26/16 11:00 Pulse 66 12/26/16 11:00 Resp 18 12/26/16 11:00 BP 99/81 12/26/16 11:00 Pulse Ox 92 12/26/16 11:00 Oxygen Flow Rate 2 Oxygen Delivery Method Nasal Cannula - Constitutional General appearance: Absent: acute distress Exam: Patient is dressed in regular clothes and well appearing with no concerns. - Head Head exam: Present: atraumatic, normal inspection, normocephalic - Eye Eye exam: Present: EOMI, normal appearance. Absent: conjunctival injection, other - ENT ENT exam: Present: mucous membranes moist, normal oropharynx - Neck Neck exam: Present: normal inspection. Absent: tenderness - Respiratory Respiratory exam: Absent: clear - Cardiovascular Cardiovascular exam: Present: RRR, systolic murmur - GI/Abdominal GI/Abdominal exam: Present: soft. Absent: tenderness - Extremities Exam Extremities exam: Present: tenderness (hip/femur). Absent: calf tenderness, edema (bilateral but left (noninjured side) worse than right (chronic per patient)) - Neurological Exam Neurological exam: Present: alert, CN II-XII intact, oriented X3 - Psychiatric Psychiatric exam: Present: normal affect, normal mood - Allied Health Notes Allied health notes reviewed: nursing, PT TD: 12/26/16 BY: HAILEY BURNHAM DO <Electronically signed by HAILEY BURNHAM DO>12/26/16 1533 cc: SUMMER YU ROBYN A DO ~ MTDD
[2016-12-26] MEDS: BRIMONIDINE 0.1% EACHEYE SCH (17:21)
[2016-12-26] MEDS: CELECOXIB 100 MG CAPSULE PO SCH (17:22)
[2016-12-26] MEDS: NON-FORMULARY MEDICATION EACHEYE SCH ×2 (17:40→20:48)
[2016-12-26] MEDS: BRINZOLAMIDE 1% EACHEYE SCH (17:45)
[2016-12-26] MEDS: ATORVASTATIN CALCIUIM 40 MG TABLET PO SCH (20:46)
[2016-12-26] MEDS: ENOXAPARIN SODIUM 80 MG/0.8 ML SYR SUBCUT SCH (20:47)
[2016-12-26] MEDS: DOCUSATE SODIUM 100 MG CAPSULE PO SCH (20:47)
[2016-12-26] MEDS: LATANOPROST 0.005% EACHEYE SCH (20:48)
[2016-12-26 23:14] LABS: URINE MUCUS NONE SEEN (Up to 25%)
[2016-12-26 23:15] LABS: URINE APPEARANCE CLEAR; URINE BACTERIA NONE SEEN (<10/hpf); URINE BILIRUBIN NEGATIVE (NEGATIVE); URINE BLOOD NEGATIVE (NEGATIVE); URINE CALCIUM OXALATE CRYSTALS FEW (Occasional); URINE COLOR YELLOW; URINE GLUCOSE NORMAL (NEGATIVE); URINE KETONE 5mg/dL (NEGATIVE); URINE LEUKOCYTE ESTERASE NEGATIVE (NEGATIVE); URINE NITRITE NEGATIVE (NEGATIVE); URINE PH 5.5 (5-7); URINE PROTEIN 10mg/dL (trace) (NEG - TRACE); URINE RBC 0-5/hpf (0-5/hpf); URINE UROBILINOGEN NORMAL (NEG-1mg/dL); URINE WBC 0-4/hpf (0-4/hpf); URINE YEAST PRESENT (None Seen)
[2016-12-27 05:56] LABS: BLOOD UREA NITROGEN 27 mg/dL (7-17); CALCIUM 8.5 mg/dL (8.4-10.2); CHLORIDE 107 mmol/L (98-107); GLUCOSE 96 mg/dL (70-100); SODIUM 141 mmol/L (137-145)
[2016-12-27 05:59] LABS: BASOPHILS 0.7 % (0.0-2.0); EOSINOPHILS 5.4 % (0.0-6.0); EOSINOPHILS# 0.3 X 10^3uL (0.0-0.4); HEMATOCRIT 30.5 % (36.0-48.0); HEMOGLOBIN 10.2 g/dL (12.0-16.0); LYMPHOCYTES 15.1 % (20.0-40.0); LYMPHOCYTES# 0.8 X 10^3uL (0.8-3.8); MEAN CELL VOLUME 88.3 fL (80.0-100.0); MEAN CORPUS. HGB CONCENTRATION 33.5 g/dL (32.0-36.0); MEAN CORPUSCULAR HEMOGLOBIN 29.6 pg (29.0-35.0); MEAN PLATELET VOLUME 7.9 fL (7.4-10.4); MONOCYTES 14.2 % (2.0-10.0); MONOCYTES# 0.8 X 10^3uL (0.2-1.0); NEUTROPHILS 64.6 % (54.0-75.0); NEUTROPHILS# 3.4 X 10^3uL (2.6-6.7); PLATELET COUNT 215 X 10^3uL (130-440); RED BLOOD COUNT 3.45 X 10^6uL (4.20-6.10); RED CELL DISTRIBUTION WIDTH 13.2 % (11.5-14.5); WHITE BLOOD COUNT 5.3 X 10^3uL (3.9-10.7)
[2016-12-27 06:12] LABS: INR 1.6
[2016-12-27] MEDS: BRIMONIDINE 0.1% EACHEYE SCH ×3 (07:01→18:23)
[2016-12-27] MEDS: BRINZOLAMIDE 1% EACHEYE SCH ×3 (07:01→18:29)
[2016-12-27] MEDS: NON-FORMULARY MEDICATION EACHEYE SCH ×4 (07:02→21:46)
[2016-12-27] MEDS: CELECOXIB 100 MG CAPSULE PO SCH ×2 (09:34→18:22)
[2016-12-27] MEDS: ASCORBIC ACID 500 MG TABLET PO SCH (09:35)
[2016-12-27] MEDS: MULTIVITAMINS THERAPEUTIC 1 TABLET PO SCH (09:35)
[2016-12-27] MEDS: DOCUSATE SODIUM 100 MG CAPSULE PO SCH ×2 (09:35→21:45)
[2016-12-27] MEDS: ENOXAPARIN SODIUM 80 MG/0.8 ML SYR SUBCUT SCH ×2 (09:35→21:44)
[2016-12-27] MEDS: CALCIUM/VIT D 600 MG/400 IU 1 TAB TABLET PO SCH (09:35)
--- NOTE | 2016-12-27 12:26 | PROGRESS NOTE: Orthopedics ---
Orthopedic PN Subjective - Subjective Principal Diagnosis: Post op hemiarthroplasty R hip Post-op Day: 5 Interval history: Pt feels fairly well physically, but is depressed Ortho PN Objective Exam - Latest Vital Signs and I&O Latest Vital Signs/I&O: Vital Signs Temp 36.6 C 12/27/16 10:34 Pulse 65 12/27/16 10:34 Resp 18 12/27/16 10:34 BP 129/56 12/27/16 10:34 Pulse Ox 97 12/27/16 10:34 Intake & Output 12/26/16 12/27/16 12/27/16 17:59 05:59 17:59 Intake Total 100 Output Total 450 Balance -350 Weight 94 kg Intake: Oral 100 Output: Urine 450 Other: Urine Appearance Clear Urine Color Light Rhina Stool Size Moderate Stool Characteristics Soft Voiding Method Toilet # Voids 3 # Bowel Movements 3 - Post-Operative Exam Dressing Status: dry & intact Active Motor: intact Sensation: intact Hilda's sign: Negative Calf tenderness: no - Lab Labs: Laboratory Last Values WBC 5.3 X 10^3uL (3.9-10.7) 12/27/16 05:00 RBC 3.45 X 10^6uL (4.20-6.10) L 12/27/16 05:00 Hgb 10.2 g/dL (12.0-16.0) L 12/27/16 05:00 Hct 30.5 % (36.0-48.0) L 12/27/16 05:00 MCV 88.3 fL (80.0-100.0) 12/27/16 05:00 MCH 29.6 pg (29.0-35.0) 12/27/16 05:00 MCHC 33.5 g/dL (32.0-36.0) 12/27/16 05:00 RDW 13.2 % (11.5-14.5) 12/27/16 05:00 Plt Count 215 X 10^3uL (130-440) 12/27/16 05:00 MPV 7.9 fL (7.4-10.4) 12/27/16 05:00 Neutrophils % 64.6 % (54.0-75.0) 12/27/16 05:00 Lymphocytes % 15.1 % (20.0-40.0) L 12/27/16 05:00 Eosinophils % 5.4 % (0.0-6.0) 12/27/16 05:00 Basophils % 0.7 % (0.0-2.0) 12/27/16 05:00 Neutrophils # 3.4 X 10^3uL (2.6-6.7) 12/27/16 05:00 Lymphocytes # 0.8 X 10^3uL (0.8-3.8) 12/27/16 05:00 Monocytes 14.2 % (2.0-10.0) H 12/27/16 05:00 Monocytes # 0.8 X 10^3uL (0.2-1.0) 12/27/16 05:00 Eosinophils # 0.3 X 10^3uL (0.0-0.4) 12/27/16 05:00 Basophils # 0.0 X 10^3uL (0.0-0.1) 12/27/16 05:00 PT 25.0 sec (13.0-16.6) H 12/27/16 05:00 INR 1.6 12/27/16 05:00 Sodium 141 mmol/L (137-145) 12/27/16 05:00 Potassium 4.0 mmol/L (3.5-5.1) 12/27/16 05:00 Chloride 107 mmol/L (98-107) 12/27/16 05:00 Carbon Dioxide 32 mmol/L (22-30) H 12/27/16 05:00 BUN 27 mg/dL (7-17) H D 12/27/16 05:00 Creatinine 1.0 mg/dL (0.5-1.0) 12/27/16 05:00 GFR Calculation Not Reportable 12/27/16 05:00 Glucose 96 mg/dL (70-100) 12/27/16 05:00 Calcium 8.5 mg/dL (8.4-10.2) 12/27/16 05:00 Urine Color Yellow 12/26/16 14:48 Urine Appearance Clear 12/26/16 14:48 Urine pH 5.5 (5-7) 12/26/16 14:48 Ur Specific [place] 1.020 (0.001-1.035) 12/26/16 14:48 Urine Protein 10mg/dl (trace) (NEG - TRACE) 12/26/16 14:48 Urine Ketones 5mg/dl (NEGATIVE) A 12/26/16 14:48 Urine Blood Negative (NEGATIVE) 12/26/16 14:48 Urine Nitrate Negative (NEGATIVE) 12/26/16 14:48 Urine Bilirubin Negative (NEGATIVE) 12/26/16 14:48 Urine Urobilinogen Normal (NEG-1mg/dL) 12/26/16 14:48 Ur Leukocyte Esterase Negative (NEGATIVE) 12/26/16 14:48 Urine RBC 0-5/hpf (0-5/hpf) 12/26/16 14:48 Urine WBC 0-4/hpf (0-4/hpf) 12/26/16 14:48 Ur Squamous Epith Cells 5-10/hpf (<= 15/hpf) 12/26/16 14:48 Calcium Oxalate Crystal Few (Occasional) A 12/26/16 14:48 Urine Bacteria None seen (<10/hpf) 12/26/16 14:48 Urine Mucus None seen (Up to 25%) 12/26/16 14:48 Urine Yeast Present (None Seen) A 12/26/16 14:48 Urine Glucose Normal (NEGATIVE) 12/26/16 14:48 Assessment and Plan-Ortho - Date of Encounter Date of Encounter: 12/27/16 (1) Fracture of femoral neck, right, closed Status: Acute Assessment and plan: Doing well overall. Plan: Continue PT/mobilization. We will see if we can get her outside a little in a chair to see if that will help with her depression. Current Visit: No Quality Questions - VTE Prophylaxis Assessment VTE Present on Admission?: No Patient at risk for venous thromboembolism?: Yes VTE Risk Level: Moderate Risk Pharmaceutical VTE prophylaxis contraindication reason: N/A- VTE prophylaxsis ordered Mechanical VTE prophylaxis contraindication reason: N/A- VTE prophylaxsis ordered
[2016-12-27] MEDS ORDERED: WARFARIN SODIUM 5 MG TABLET PO SCH (12:47)
--- NOTE | 2016-12-27 13:02 | PROGRESS NOTE: IM APSO ---
Assessment and Plan - Date of Encounter Date of Encounter: 12/27/16 (1) Fracture of femoral neck, right, closed Status: Acute Assessment and plan: swingbed, dvt prophy/IS, usual meds Current Visit: No (2) Afib Status: Chronic Assessment and plan: continue warfarin for dvt with surgery and afib prophylaxis, no rate control meds as prior robbi and currently controlled. Current Visit: No (3) Chronic renal insufficiency Status: Chronic Current Visit: No (4) Hyperlipemia Status: Chronic Assessment and plan: treated with lipitor, will continue though consider stopping as outpatient with risk of dementia (defer to PCP) Current Visit: No (5) Hypertension Status: Chronic Assessment and plan: controlled on enalapril Current Visit: No (6) Hypothyroid Status: Chronic Assessment and plan: compensated Current Visit: No (7) Sick sinus syndrome Status: Chronic Current Visit: No - Time Spent With Patient Total time spent with greater than 50% in coordination of care (as documented) at patient's floor/unit and/or counseling patient: less than 15 minutes IM: PN Subjective General: good appetite, pain, no fever, no chills Cardiovascular: no chest pain, no chest pressure Gastrointestinal: no abdominal pain, no nausea, no vomiting, no diarrhea Musculoskeletal: pain, swelling (86 yo recent fall and fracture hip, s/p orif. h/o afib (sick sinus syndrome on warfarin), htn, dyslipidemia) IM: PN Objective Exam - I&O/Vital Signs I&O: Intake & Output 12/26/16 12/27/16 12/27/16 21:59 05:59 13:59 Intake Total 100 Output Total 450 Balance -350 Weight 94 kg Intake: Oral 100 Output: Urine 450 Other: Urine Appearance Clear Urine Color Light Rhina Stool Size Moderate Stool Characteristics Soft Voiding Method Toilet # Voids 3 # Bowel Movements 3 Vital Signs: Last Vital Signs Temp 36.6 C 12/27/16 10:34 Pulse 65 12/27/16 10:34 Resp 18 12/27/16 10:34 BP 129/56 12/27/16 10:34 Pulse Ox 97 12/27/16 10:34 Oxygen Flow Rate 2 Oxygen Delivery Method Nasal Cannula - Constitutional General appearance: Present: average body habitus - Head Head exam: Present: atraumatic - Eye Eye exam: Present: EOMI - ENT ENT exam: Present: mucous membranes moist - Neck Neck exam: Absent: lymphadenopathy - Respiratory Respiratory exam: Present: CTAB - Cardiovascular Cardiovascular exam: Present: irregular rhythm - GI/Abdominal GI/Abdominal exam: Present: normal bowel sounds, soft. Absent: tenderness - Allied Health Notes Allied health notes reviewed: nursing - Lab Labs: Laboratory Last Values WBC 5.3 X 10^3uL (3.9-10.7) 12/27/16 05:00 RBC 3.45 X 10^6uL (4.20-6.10) L 12/27/16 05:00 Hgb 10.2 g/dL (12.0-16.0) L 12/27/16 05:00 Hct 30.5 % (36.0-48.0) L 12/27/16 05:00 MCV 88.3 fL (80.0-100.0) 12/27/16 05:00 MCH 29.6 pg (29.0-35.0) 12/27/16 05:00 MCHC 33.5 g/dL (32.0-36.0) 12/27/16 05:00 RDW 13.2 % (11.5-14.5) 12/27/16 05:00 Plt Count 215 X 10^3uL (130-440) 12/27/16 05:00 MPV 7.9 fL (7.4-10.4) 12/27/16 05:00 Neutrophils % 64.6 % (54.0-75.0) 12/27/16 05:00 Lymphocytes % 15.1 % (20.0-40.0) L 12/27/16 05:00 Eosinophils % 5.4 % (0.0-6.0) 12/27/16 05:00 Basophils % 0.7 % (0.0-2.0) 12/27/16 05:00 Neutrophils # 3.4 X 10^3uL (2.6-6.7) 12/27/16 05:00 Lymphocytes # 0.8 X 10^3uL (0.8-3.8) 12/27/16 05:00 Monocytes 14.2 % (2.0-10.0) H 12/27/16 05:00 Monocytes # 0.8 X 10^3uL (0.2-1.0) 12/27/16 05:00 Eosinophils # 0.3 X 10^3uL (0.0-0.4) 12/27/16 05:00 Basophils # 0.0 X 10^3uL (0.0-0.1) 12/27/16 05:00 PT 25.0 sec (13.0-16.6) H 12/27/16 05:00 INR 1.6 12/27/16 05:00 Sodium 141 mmol/L (137-145) 12/27/16 05:00 Potassium 4.0 mmol/L (3.5-5.1) 12/27/16 05:00 Chloride 107 mmol/L (98-107) 12/27/16 05:00 Carbon Dioxide 32 mmol/L (22-30) H 12/27/16 05:00 BUN 27 mg/dL (7-17) H D 12/27/16 05:00 Creatinine 1.0 mg/dL (0.5-1.0) 12/27/16 05:00 GFR Calculation Not Reportable 12/27/16 05:00 Glucose 96 mg/dL (70-100) 12/27/16 05:00 Calcium 8.5 mg/dL (8.4-10.2) 12/27/16 05:00 Urine Color Yellow 12/26/16 14:48 Urine Appearance Clear 12/26/16 14:48 Urine pH 5.5 (5-7) 12/26/16 14:48 Ur Specific [place] 1.020 (0.001-1.035) 12/26/16 14:48 Urine Protein 10mg/dl (trace) (NEG - TRACE) 12/26/16 14:48 Urine Ketones 5mg/dl (NEGATIVE) A 12/26/16 14:48 Urine Blood Negative (NEGATIVE) 12/26/16 14:48 Urine Nitrate Negative (NEGATIVE) 12/26/16 14:48 Urine Bilirubin Negative (NEGATIVE) 12/26/16 14:48 Urine Urobilinogen Normal (NEG-1mg/dL) 12/26/16 14:48 Ur Leukocyte Esterase Negative (NEGATIVE) 12/26/16 14:48 Urine RBC 0-5/hpf (0-5/hpf) 12/26/16 14:48 Urine WBC 0-4/hpf (0-4/hpf) 12/26/16 14:48 Ur Squamous Epith Cells 5-10/hpf (<= 15/hpf) 12/26/16 14:48 Calcium Oxalate Crystal Few (Occasional) A 12/26/16 14:48 Urine Bacteria None seen (<10/hpf) 12/26/16 14:48 Urine Mucus None seen (Up to 25%) 12/26/16 14:48 Urine Yeast Present (None Seen) A 12/26/16 14:48 Urine Glucose Normal (NEGATIVE) 12/26/16 14:48 (2) Afib Qualifiers: Atrial fibrillation type: persistent Qualified Code(s): I48.1 - Persistent atrial fibrillation (5) Hypertension Qualifiers: Hypertension type: essential hypertension Qualified Code(s): I10 - Essential (primary) hypertension (6) Hypothyroid Qualifiers: 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
[2016-12-27] MEDS: TIMOLOL 0.5% EACHEYE SCH (13:51)
[2016-12-27] MEDS: WARFARIN SODIUM 2.5 MG TABLET PO SCH (15:53)
[2016-12-27] MEDS: ATORVASTATIN CALCIUIM 40 MG TABLET PO SCH (21:45)
[2016-12-27] MEDS: ENALAPRIL MALEATE 5 MG TABLET PO SCH (21:45)
[2016-12-27] MEDS: LATANOPROST 0.005% EACHEYE SCH (21:46)
[2016-12-27] MEDS: ACETAMINOPHEN 325 MG TABLET PO PRN (22:14)
[2016-12-28] MEDS: NON-FORMULARY MEDICATION EACHEYE SCH ×4 (06:23→20:54)
[2016-12-28] MEDS: BRIMONIDINE 0.1% EACHEYE SCH ×3 (06:23→16:09)
[2016-12-28] MEDS: BRINZOLAMIDE 1% EACHEYE SCH ×3 (06:23→16:09)
[2016-12-28] MEDS: LEVOTHYROXINE 75 MCG TABLET PO SCH (06:23)
[2016-12-28] MEDS: ENOXAPARIN SODIUM 80 MG/0.8 ML SYR SUBCUT SCH (08:50)
[2016-12-28] MEDS: CALCIUM/VIT D 600 MG/400 IU 1 TAB TABLET PO SCH (08:51)
[2016-12-28] MEDS: ENALAPRIL MALEATE 5 MG TABLET PO SCH ×2 (08:51→20:52)
[2016-12-28] MEDS: ASCORBIC ACID 500 MG TABLET PO SCH (08:51)
--- NOTE | 2016-12-28 08:51 | PROGRESS NOTE: Orthopedics ---
Orthopedic PN Subjective - Subjective Principal Diagnosis: Post op hemiarthroplasty right hip Post-op Day: 6 Interval history: Pt feels fairly well. Less down today. Ortho PN Objective Exam - Latest Vital Signs and I&O Latest Vital Signs/I&O: Vital Signs Temp 36.9 C 12/28/16 07:00 Pulse 62 12/28/16 07:00 Resp 18 12/27/16 10:34 BP 132/54 12/28/16 07:00 Pulse Ox 94 12/28/16 07:00 Intake & Output 12/27/16 12/28/16 12/28/16 17:59 05:59 17:59 Intake Total 100 1220 Output Total 450 1000 Balance -350 220 Weight 97.749 kg Intake: Oral 100 1220 Output: Urine 450 1000 Other: Urine Appearance Clear Clear Urine Color Light Rhina Yellow Straw Stool Size Moderate Small Stool Characteristics Soft Formed Voiding Method Toilet Toilet # Voids 3 1 # Bowel Movements 3 1 - Post-Operative Exam Incision: Present: clean and dry Drainage Amount: none Active Motor: intact Sensation: intact Hilda's sign: Negative Calf tenderness: no - Lab Labs: Laboratory Last Values WBC 5.3 X 10^3uL (3.9-10.7) 12/27/16 05:00 RBC 3.45 X 10^6uL (4.20-6.10) L 12/27/16 05:00 Hgb 10.2 g/dL (12.0-16.0) L 12/27/16 05:00 Hct 30.5 % (36.0-48.0) L 12/27/16 05:00 MCV 88.3 fL (80.0-100.0) 12/27/16 05:00 MCH 29.6 pg (29.0-35.0) 12/27/16 05:00 MCHC 33.5 g/dL (32.0-36.0) 12/27/16 05:00 RDW 13.2 % (11.5-14.5) 12/27/16 05:00 Plt Count 215 X 10^3uL (130-440) 12/27/16 05:00 MPV 7.9 fL (7.4-10.4) 12/27/16 05:00 Neutrophils % 64.6 % (54.0-75.0) 12/27/16 05:00 Lymphocytes % 15.1 % (20.0-40.0) L 12/27/16 05:00 Eosinophils % 5.4 % (0.0-6.0) 12/27/16 05:00 Basophils % 0.7 % (0.0-2.0) 12/27/16 05:00 Neutrophils # 3.4 X 10^3uL (2.6-6.7) 12/27/16 05:00 Lymphocytes # 0.8 X 10^3uL (0.8-3.8) 12/27/16 05:00 Monocytes 14.2 % (2.0-10.0) H 12/27/16 05:00 Monocytes # 0.8 X 10^3uL (0.2-1.0) 12/27/16 05:00 Eosinophils # 0.3 X 10^3uL (0.0-0.4) 12/27/16 05:00 Basophils # 0.0 X 10^3uL (0.0-0.1) 12/27/16 05:00 PT 25.0 sec (13.0-16.6) H 12/27/16 05:00 Capillary INR 2.2 (0.8-1.2) H 12/28/16 06:15 INR 1.6 12/27/16 05:00 Sodium 141 mmol/L (137-145) 12/27/16 05:00 Potassium 4.0 mmol/L (3.5-5.1) 12/27/16 05:00 Chloride 107 mmol/L (98-107) 12/27/16 05:00 Carbon Dioxide 32 mmol/L (22-30) H 12/27/16 05:00 BUN 27 mg/dL (7-17) H D 12/27/16 05:00 Creatinine 1.0 mg/dL (0.5-1.0) 12/27/16 05:00 GFR Calculation Not Reportable 12/27/16 05:00 Glucose 96 mg/dL (70-100) 12/27/16 05:00 Calcium 8.5 mg/dL (8.4-10.2) 12/27/16 05:00 Urine Color Yellow 12/26/16 14:48 Urine Appearance Clear 12/26/16 14:48 Urine pH 5.5 (5-7) 12/26/16 14:48 Ur Specific [place] 1.020 (0.001-1.035) 12/26/16 14:48 Urine Protein 10mg/dl (trace) (NEG - TRACE) 12/26/16 14:48 Urine Ketones 5mg/dl (NEGATIVE) A 12/26/16 14:48 Urine Blood Negative (NEGATIVE) 12/26/16 14:48 Urine Nitrate Negative (NEGATIVE) 12/26/16 14:48 Urine Bilirubin Negative (NEGATIVE) 12/26/16 14:48 Urine Urobilinogen Normal (NEG-1mg/dL) 12/26/16 14:48 Ur Leukocyte Esterase Negative (NEGATIVE) 12/26/16 14:48 Urine RBC 0-5/hpf (0-5/hpf) 12/26/16 14:48 Urine WBC 0-4/hpf (0-4/hpf) 12/26/16 14:48 Ur Squamous Epith Cells 5-10/hpf (<= 15/hpf) 12/26/16 14:48 Calcium Oxalate Crystal Few (Occasional) A 12/26/16 14:48 Urine Bacteria None seen (<10/hpf) 12/26/16 14:48 Urine Mucus None seen (Up to 25%) 12/26/16 14:48 Urine Yeast Present (None Seen) A 12/26/16 14:48 Urine Glucose Normal (NEGATIVE) 12/26/16 14:48 Assessment and Plan-Ortho - Date of Encounter Date of Encounter: 12/28/16 (1) Fracture of femoral neck, right, closed Status: Acute Assessment and plan: Slowly improving with mobilization. Plan: Continue PT, work with ambulation and ADLs Current Visit: No
[2016-12-28] MEDS: DOCUSATE SODIUM 100 MG CAPSULE PO SCH ×2 (08:52→20:53)
[2016-12-28] MEDS: CELECOXIB 100 MG CAPSULE PO SCH ×2 (08:52→17:00)
[2016-12-28] MEDS: MULTIVITAMINS THERAPEUTIC 1 TABLET PO SCH (08:52)
[2016-12-28] MEDS ORDERED: FUROSEMIDE 20 MG TABLET PO SCH (09:00)
--- NOTE | 2016-12-28 09:06 | PROGRESS NOTE: IM APSO ---
Assessment and Plan - Date of Encounter Date of Encounter: 12/28/16 (1) Fracture of femoral neck, right, closed Status: Acute Assessment and plan: swingbed, dvt prophy/IS, usual meds Current Visit: No (2) Afib Status: Chronic Assessment and plan: continue warfarin for dvt with surgery and afib prophylaxis, no rate control meds as prior robbi and currently controlled. Current Visit: No (3) Chronic renal insufficiency Status: Chronic Current Visit: No (4) Hyperlipemia Status: Chronic Assessment and plan: treated with lipitor, will continue though consider stopping as outpatient with risk of dementia (defer to PCP) Current Visit: No (5) Hypertension Status: Chronic Assessment and plan: controlled on enalapril Current Visit: No (6) Hypothyroid Status: Chronic Assessment and plan: compensated Current Visit: No (7) Sick sinus syndrome Status: Chronic Current Visit: No (8) Adjustment disorder Status: Acute Assessment and plan: h/o depression now lost some independence and fearful of future, some rumination /negative self talk, consider resuming antidepressant, she wishes to wait on this for bit, will go outside few times today, work with therapy and improve sleep with trial of trazodone. Current Visit: Yes - Time Spent With Patient Total time spent with greater than 50% in coordination of care (as documented) at patient's floor/unit and/or counseling patient: Greater than 35 minutes IM: PN Subjective General: good appetite, pain, no fever, no chills Cardiovascular: no chest pain, no chest pressure Gastrointestinal: no abdominal pain, no nausea, no vomiting, no diarrhea Musculoskeletal: pain, swelling (86 yo recent fall and fracture hip, s/p orif. h/o afib (sick sinus syndrome on warfarin), htn, dyslipidemia) Neurological: other (Tearful today, relates ngative self talk and rumination, notes treated for 2 years with antidepressant after , weaned off in Aug this year and now tearful/sad/overwhelmed/hopeless, spoke about recovery and consideration of resuming antidepressant, she wishes to try being more active, going outside, sleeping med and if still limited by mood and negative self talk, will consider resuming antidepressant) IM: PN Objective Exam - I&O/Vital Signs I&O: Intake & Output 06/28/17 06/29/17 06/29/17 21:59 05:59 13:59 Intake Total 1020 200 Output Total 300 700 Balance 720 -500 Weight 97.749 kg Intake: Oral 1020 200 Output: Urine 300 700 Other: Urine Appearance Clear Clear Urine Color Yellow Yellow Straw Stool Size Small Small Stool Characteristics Formed Formed Voiding Method Toilet Toilet # Voids 1 # Bowel Movements 4 1 Vital Signs: Last Vital Signs Temp 36.9 C 12/28/16 07:00 Pulse 62 12/28/16 07:00 Resp 18 12/27/16 10:34 BP 132/54 12/28/16 07:00 Pulse Ox 94 12/28/16 07:00 Oxygen Flow Rate 2 Oxygen Delivery Method Nasal Cannula - Constitutional General appearance: Present: average body habitus - Head Head exam: Present: atraumatic - Eye Eye exam: Present: EOMI - ENT ENT exam: Present: mucous membranes moist - Neck Neck exam: Absent: lymphadenopathy - Respiratory Respiratory exam: Present: CTAB - Cardiovascular Cardiovascular exam: Present: irregular rhythm - GI/Abdominal GI/Abdominal exam: Present: normal bowel sounds, soft. Absent: tenderness - Allied Health Notes Allied health notes reviewed: nursing - Lab Labs: Laboratory Last Values WBC 5.3 X 10^3uL (3.9-10.7) 12/27/16 05:00 RBC 3.45 X 10^6uL (4.20-6.10) L 12/27/16 05:00 Hgb 10.2 g/dL (12.0-16.0) L 12/27/16 05:00 Hct 30.5 % (36.0-48.0) L 12/27/16 05:00 MCV 88.3 fL (80.0-100.0) 12/27/16 05:00 MCH 29.6 pg (29.0-35.0) 12/27/16 05:00 MCHC 33.5 g/dL (32.0-36.0) 12/27/16 05:00 RDW 13.2 % (11.5-14.5) 12/27/16 05:00 Plt Count 215 X 10^3uL (130-440) 12/27/16 05:00 MPV 7.9 fL (7.4-10.4) 12/27/16 05:00 Neutrophils % 64.6 % (54.0-75.0) 12/27/16 05:00 Lymphocytes % 15.1 % (20.0-40.0) L 12/27/16 05:00 Eosinophils % 5.4 % (0.0-6.0) 12/27/16 05:00 Basophils % 0.7 % (0.0-2.0) 12/27/16 05:00 Neutrophils # 3.4 X 10^3uL (2.6-6.7) 12/27/16 05:00 Lymphocytes # 0.8 X 10^3uL (0.8-3.8) 12/27/16 05:00 Monocytes 14.2 % (2.0-10.0) H 12/27/16 05:00 Monocytes # 0.8 X 10^3uL (0.2-1.0) 12/27/16 05:00 Eosinophils # 0.3 X 10^3uL (0.0-0.4) 12/27/16 05:00 Basophils # 0.0 X 10^3uL (0.0-0.1) 12/27/16 05:00 PT 25.0 sec (13.0-16.6) H 12/27/16 05:00 Capillary INR 2.2 (0.8-1.2) H 12/28/16 06:15 INR 1.6 12/27/16 05:00 Sodium 141 mmol/L (137-145) 12/27/16 05:00 Potassium 4.0 mmol/L (3.5-5.1) 12/27/16 05:00 Chloride 107 mmol/L (98-107) 12/27/16 05:00 Carbon Dioxide 32 mmol/L (22-30) H 12/27/16 05:00 BUN 27 mg/dL (7-17) H D 12/27/16 05:00 Creatinine 1.0 mg/dL (0.5-1.0) 12/27/16 05:00 GFR Calculation Not Reportable 12/27/16 05:00 Glucose 96 mg/dL (70-100) 12/27/16 05:00 Calcium 8.5 mg/dL (8.4-10.2) 12/27/16 05:00 Urine Color Yellow 12/26/16 14:48 Urine Appearance Clear 12/26/16 14:48 Urine pH 5.5 (5-7) 12/26/16 14:48 Ur Specific [place] 1.020 (0.001-1.035) 12/26/16 14:48 Urine Protein 10mg/dl (trace) (NEG - TRACE) 12/26/16 14:48 Urine Ketones 5mg/dl (NEGATIVE) A 12/26/16 14:48 Urine Blood Negative (NEGATIVE) 12/26/16 14:48 Urine Nitrate Negative (NEGATIVE) 12/26/16 14:48 Urine Bilirubin Negative (NEGATIVE) 12/26/16 14:48 Urine Urobilinogen Normal (NEG-1mg/dL) 12/26/16 14:48 Ur Leukocyte Esterase Negative (NEGATIVE) 12/26/16 14:48 Urine RBC 0-5/hpf (0-5/hpf) 12/26/16 14:48 Urine WBC 0-4/hpf (0-4/hpf) 12/26/16 14:48 Ur Squamous Epith Cells 5-10/hpf (<= 15/hpf) 12/26/16 14:48 Calcium Oxalate Crystal Few (Occasional) A 12/26/16 14:48 Urine Bacteria None seen (<10/hpf) 12/26/16 14:48 Urine Mucus None seen (Up to 25%) 12/26/16 14:48 Urine Yeast Present (None Seen) A 12/26/16 14:48 Urine Glucose Normal (NEGATIVE) 12/26/16 14:48 (2) Afib Qualifiers: Atrial fibrillation type: persistent Qualified Code(s): I48.1 - Persistent atrial fibrillation (5) Hypertension Qualifiers: Hypertension type: essential hypertension Qualified Code(s): I10 - Essential (primary) hypertension (6) Hypothyroid Qualifiers: 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
[2016-12-28] MEDS: TIMOLOL 0.5% EACHEYE SCH (11:59)
[2016-12-28] MEDS: WARFARIN SODIUM 2.5 MG TABLET PO SCH (15:55)
[2016-12-28] MEDS: ATORVASTATIN CALCIUIM 40 MG TABLET PO SCH (20:53)
[2016-12-28] MEDS: traZODone HCL 50 MG TABLET PO PRN (20:53)
[2016-12-28] MEDS: LATANOPROST 0.005% EACHEYE SCH (20:54)
[2016-12-28] MEDS: PRESERVISION AREDS 2 PO SCH (20:56)
[2016-12-29] MEDS: ACETAMINOPHEN 325 MG TABLET PO PRN ×2 (04:50→21:24)
[2016-12-29] MEDS: BRIMONIDINE 0.1% EACHEYE SCH ×3 (06:10→16:53)
[2016-12-29] MEDS: NON-FORMULARY MEDICATION EACHEYE SCH ×4 (06:10→21:25)
[2016-12-29] MEDS: LEVOTHYROXINE 75 MCG TABLET PO SCH (06:10)
[2016-12-29] MEDS: BRINZOLAMIDE 1% EACHEYE SCH ×3 (06:10→16:53)
[2016-12-29] MEDS: DOCUSATE SODIUM 100 MG CAPSULE PO SCH ×2 (08:05→21:24)
[2016-12-29] MEDS: CELECOXIB 100 MG CAPSULE PO SCH ×2 (08:05→17:22)
[2016-12-29] MEDS: CALCIUM/VIT D 600 MG/400 IU 1 TAB TABLET PO SCH (08:06)
[2016-12-29] MEDS: ASCORBIC ACID 500 MG TABLET PO SCH (08:06)
[2016-12-29] MEDS: ENALAPRIL MALEATE 5 MG TABLET PO SCH ×2 (08:06→21:25)
[2016-12-29] MEDS: MULTIVITAMINS THERAPEUTIC 1 TABLET PO SCH (08:06)
[2016-12-29] MEDS: PRESERVISION AREDS 2 PO SCH ×2 (08:12→21:25)
[2016-12-29] MEDS ORDERED: WARFARIN SODIUM 2.5 MG TABLET PO SCH ×2 (08:38→16:00)
--- NOTE | 2016-12-29 09:09 | PROGRESS NOTE: Orthopedics ---
Orthopedic PN Subjective - Subjective Principal Diagnosis: Post op hemiarthroplasty right hip Post-op Day: 7 Interval history: Pt feels a little better today Ortho PN Objective Exam - Latest Vital Signs and I&O Latest Vital Signs/I&O: Vital Signs Temp 37.2 C 12/29/16 06:16 Pulse 53 L 12/29/16 06:16 Resp 16 12/29/16 06:16 BP 128/59 12/29/16 06:16 Pulse Ox 96 12/29/16 06:16 Intake & Output 12/28/16 12/29/16 12/29/16 17:59 05:59 17:59 Intake Total 760 550 Output Total 175 Balance 585 550 Weight 92.5 kg Intake: Oral 760 550 Output: Urine 175 Other: Urine Appearance Clear Clear Urine Color Yellow Yellow Stool Size Small Smear Stool Characteristics Soft Soft Voiding Method Toilet Toilet # Voids 3 2 # Bowel Movements 2 1 - Post-Operative Exam Incision: Present: clean and dry Drainage Amount: none Sensation: intact Hilda's sign: Negative Calf tenderness: no - Lab Labs: Laboratory Last Values WBC 5.3 X 10^3uL (3.9-10.7) 12/27/16 05:00 RBC 3.45 X 10^6uL (4.20-6.10) L 12/27/16 05:00 Hgb 10.2 g/dL (12.0-16.0) L 12/27/16 05:00 Hct 30.5 % (36.0-48.0) L 12/27/16 05:00 MCV 88.3 fL (80.0-100.0) 12/27/16 05:00 MCH 29.6 pg (29.0-35.0) 12/27/16 05:00 MCHC 33.5 g/dL (32.0-36.0) 12/27/16 05:00 RDW 13.2 % (11.5-14.5) 12/27/16 05:00 Plt Count 215 X 10^3uL (130-440) 12/27/16 05:00 MPV 7.9 fL (7.4-10.4) 12/27/16 05:00 Neutrophils % 64.6 % (54.0-75.0) 12/27/16 05:00 Lymphocytes % 15.1 % (20.0-40.0) L 12/27/16 05:00 Eosinophils % 5.4 % (0.0-6.0) 12/27/16 05:00 Basophils % 0.7 % (0.0-2.0) 12/27/16 05:00 Neutrophils # 3.4 X 10^3uL (2.6-6.7) 12/27/16 05:00 Lymphocytes # 0.8 X 10^3uL (0.8-3.8) 12/27/16 05:00 Monocytes 14.2 % (2.0-10.0) H 12/27/16 05:00 Monocytes # 0.8 X 10^3uL (0.2-1.0) 12/27/16 05:00 Eosinophils # 0.3 X 10^3uL (0.0-0.4) 12/27/16 05:00 Basophils # 0.0 X 10^3uL (0.0-0.1) 12/27/16 05:00 PT 25.0 sec (13.0-16.6) H 12/27/16 05:00 Capillary INR 1.9 (0.8-1.2) H 12/29/16 06:15 INR 1.6 12/27/16 05:00 Sodium 141 mmol/L (137-145) 12/27/16 05:00 Potassium 4.0 mmol/L (3.5-5.1) 12/27/16 05:00 Chloride 107 mmol/L (98-107) 12/27/16 05:00 Carbon Dioxide 32 mmol/L (22-30) H 12/27/16 05:00 BUN 27 mg/dL (7-17) H D 12/27/16 05:00 Creatinine 1.0 mg/dL (0.5-1.0) 12/27/16 05:00 GFR Calculation Not Reportable 12/27/16 05:00 Glucose 96 mg/dL (70-100) 12/27/16 05:00 Calcium 8.5 mg/dL (8.4-10.2) 12/27/16 05:00 Urine Color Yellow 12/26/16 14:48 Urine Appearance Clear 12/26/16 14:48 Urine pH 5.5 (5-7) 12/26/16 14:48 Ur Specific [place] 1.020 (0.001-1.035) 12/26/16 14:48 Urine Protein 10mg/dl (trace) (NEG - TRACE) 12/26/16 14:48 Urine Ketones 5mg/dl (NEGATIVE) A 12/26/16 14:48 Urine Blood Negative (NEGATIVE) 12/26/16 14:48 Urine Nitrate Negative (NEGATIVE) 12/26/16 14:48 Urine Bilirubin Negative (NEGATIVE) 12/26/16 14:48 Urine Urobilinogen Normal (NEG-1mg/dL) 12/26/16 14:48 Ur Leukocyte Esterase Negative (NEGATIVE) 12/26/16 14:48 Urine RBC 0-5/hpf (0-5/hpf) 12/26/16 14:48 Urine WBC 0-4/hpf (0-4/hpf) 12/26/16 14:48 Ur Squamous Epith Cells 5-10/hpf (<= 15/hpf) 12/26/16 14:48 Calcium Oxalate Crystal Few (Occasional) A 12/26/16 14:48 Urine Bacteria None seen (<10/hpf) 12/26/16 14:48 Urine Mucus None seen (Up to 25%) 12/26/16 14:48 Urine Yeast Present (None Seen) A 12/26/16 14:48 Urine Glucose Normal (NEGATIVE) 12/26/16 14:48 Assessment and Plan-Ortho - Date of Encounter Date of Encounter: 12/29/16 (1) Fracture of femoral neck, right, closed Status: Acute Assessment and plan: Slowly improving with mobilization. Plan: Continue PT, work with ambulation and ADLs Current Visit: No
--- NOTE | 2016-12-29 11:37 | PROGRESS NOTE: IM APSO ---
Assessment and Plan - Date of Encounter Date of Encounter: 12/29/16 (1) Fracture of femoral neck, right, closed Status: Acute Assessment and plan: swingbed, dvt prophy/IS, usual meds Current Visit: No (2) Afib Status: Chronic Assessment and plan: continue warfarin for dvt with surgery and afib prophylaxis, no rate control meds as prior robbi and currently controlled. Current Visit: No (3) Chronic renal insufficiency Status: Chronic Current Visit: No (4) Hyperlipemia Status: Chronic Assessment and plan: treated with lipitor, will continue though consider stopping as outpatient with risk of dementia (defer to PCP) Current Visit: No (5) Hypertension Status: Chronic Assessment and plan: controlled on enalapril Current Visit: No (6) Hypothyroid Status: Chronic Assessment and plan: compensated Current Visit: No (7) Sick sinus syndrome Status: Chronic Current Visit: No (8) Adjustment disorder Status: Acute Assessment and plan: h/o depression now lost some independence and fearful of future, some rumination /negative self talk, consider resuming antidepressant, she wishes to wait on this for bit, will go outside few times today, work with therapy and improve sleep with trial of trazodone. All of this seems to have been effective and will continue to help sleep and encourage trips outside Current Visit: Yes - Time Spent With Patient Total time spent with greater than 50% in coordination of care (as documented) at patient's floor/unit and/or counseling patient: less than 15 minutes IM: PN Subjective General: good appetite, pain, no fever, no chills Cardiovascular: no chest pain, no chest pressure Gastrointestinal: no abdominal pain, no nausea, no vomiting, no diarrhea Musculoskeletal: pain, swelling (86 yo recent fall and fracture hip, s/p orif. h/o afib (sick sinus syndrome on warfarin), htn, dyslipidemia) Neurological: other (went outdoors yesterday, wheelchair exac some of hip pain by pressig on incision but overall it really helped and now has visitors, walked to [facility] and mobility improving, all of this has helped mood) IM: PN Objective Exam - I&O/Vital Signs I&O: Intake & Output 12/28/16 12/29/16 12/29/16 21:59 05:59 13:59 Intake Total 760 550 Output Total 175 Balance 585 550 Weight 92.5 kg Intake: Oral 760 550 Output: Urine 175 Other: Urine Appearance Clear Clear Clear Urine Color Yellow Yellow Yellow Stool Size Small Smear Small Stool Characteristics Soft Soft Soft Brown Voiding Method Toilet Toilet Toilet # Voids 3 2 # Bowel Movements 2 1 Vital Signs: Last Vital Signs Temp 37.2 C 12/29/16 06:16 Pulse 53 L 12/29/16 06:16 Resp 16 12/29/16 09:00 BP 128/59 12/29/16 06:16 Pulse Ox 96 12/29/16 09:00 Oxygen Flow Rate 2 Oxygen Delivery Method Nasal Cannula - Constitutional General appearance: Present: average body habitus - Head Head exam: Present: atraumatic - Neck Neck exam: Absent: lymphadenopathy - Psychiatric Psychiatric exam: Present: normal mood, other (smiling, not tearful an more interactive). Absent: anxious, depressed, flat affect - Allied Health Notes Allied health notes reviewed: nursing - Lab Labs: Laboratory Last Values WBC 5.3 X 10^3uL (3.9-10.7) 12/27/16 05:00 RBC 3.45 X 10^6uL (4.20-6.10) L 12/27/16 05:00 Hgb 10.2 g/dL (12.0-16.0) L 12/27/16 05:00 Hct 30.5 % (36.0-48.0) L 12/27/16 05:00 MCV 88.3 fL (80.0-100.0) 12/27/16 05:00 MCH 29.6 pg (29.0-35.0) 12/27/16 05:00 MCHC 33.5 g/dL (32.0-36.0) 12/27/16 05:00 RDW 13.2 % (11.5-14.5) 12/27/16 05:00 Plt Count 215 X 10^3uL (130-440) 12/27/16 05:00 MPV 7.9 fL (7.4-10.4) 12/27/16 05:00 Neutrophils % 64.6 % (54.0-75.0) 12/27/16 05:00 Lymphocytes % 15.1 % (20.0-40.0) L 12/27/16 05:00 Eosinophils % 5.4 % (0.0-6.0) 12/27/16 05:00 Basophils % 0.7 % (0.0-2.0) 12/27/16 05:00 Neutrophils # 3.4 X 10^3uL (2.6-6.7) 12/27/16 05:00 Lymphocytes # 0.8 X 10^3uL (0.8-3.8) 12/27/16 05:00 Monocytes 14.2 % (2.0-10.0) H 12/27/16 05:00 Monocytes # 0.8 X 10^3uL (0.2-1.0) 12/27/16 05:00 Eosinophils # 0.3 X 10^3uL (0.0-0.4) 12/27/16 05:00 Basophils # 0.0 X 10^3uL (0.0-0.1) 12/27/16 05:00 PT 25.0 sec (13.0-16.6) H 12/27/16 05:00 Capillary INR 1.9 (0.8-1.2) H 12/29/16 06:15 INR 1.6 12/27/16 05:00 Sodium 141 mmol/L (137-145) 12/27/16 05:00 Potassium 4.0 mmol/L (3.5-5.1) 12/27/16 05:00 Chloride 107 mmol/L (98-107) 12/27/16 05:00 Carbon Dioxide 32 mmol/L (22-30) H 12/27/16 05:00 BUN 27 mg/dL (7-17) H D 12/27/16 05:00 Creatinine 1.0 mg/dL (0.5-1.0) 12/27/16 05:00 GFR Calculation Not Reportable 12/27/16 05:00 Glucose 96 mg/dL (70-100) 12/27/16 05:00 Calcium 8.5 mg/dL (8.4-10.2) 12/27/16 05:00 Urine Color Yellow 12/26/16 14:48 Urine Appearance Clear 12/26/16 14:48 Urine pH 5.5 (5-7) 12/26/16 14:48 Ur Specific [place] 1.020 (0.001-1.035) 12/26/16 14:48 Urine Protein 10mg/dl (trace) (NEG - TRACE) 12/26/16 14:48 Urine Ketones 5mg/dl (NEGATIVE) A 12/26/16 14:48 Urine Blood Negative (NEGATIVE) 12/26/16 14:48 Urine Nitrate Negative (NEGATIVE) 12/26/16 14:48 Urine Bilirubin Negative (NEGATIVE) 12/26/16 14:48 Urine Urobilinogen Normal (NEG-1mg/dL) 12/26/16 14:48 Ur Leukocyte Esterase Negative (NEGATIVE) 12/26/16 14:48 Urine RBC 0-5/hpf (0-5/hpf) 12/26/16 14:48 Urine WBC 0-4/hpf (0-4/hpf) 12/26/16 14:48 Ur Squamous Epith Cells 5-10/hpf (<= 15/hpf) 12/26/16 14:48 Calcium Oxalate Crystal Few (Occasional) A 12/26/16 14:48 Urine Bacteria None seen (<10/hpf) 12/26/16 14:48 Urine Mucus None seen (Up to 25%) 12/26/16 14:48 Urine Yeast Present (None Seen) A 12/26/16 14:48 Urine Glucose Normal (NEGATIVE) 12/26/16 14:48 (2) Afib Qualifiers: Atrial fibrillation type: persistent Qualified Code(s): I48.1 - Persistent atrial fibrillation (5) Hypertension Qualifiers: Hypertension type: essential hypertension Qualified Code(s): I10 - Essential (primary) hypertension (6) Hypothyroid Qualifiers: 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
[2016-12-29] MEDS: TIMOLOL 0.5% EACHEYE SCH (12:50)
[2016-12-29] MEDS: traZODone HCL 50 MG TABLET PO PRN (21:24)
[2016-12-29] MEDS: ATORVASTATIN CALCIUIM 40 MG TABLET PO SCH (21:25)
[2016-12-29] MEDS: LATANOPROST 0.005% EACHEYE SCH (21:25)
[2016-12-30] MEDS: BRIMONIDINE 0.1% EACHEYE SCH ×3 (06:09→17:26)
[2016-12-30] MEDS: BRINZOLAMIDE 1% EACHEYE SCH ×3 (06:09→17:26)
[2016-12-30] MEDS: LEVOTHYROXINE 75 MCG TABLET PO SCH (06:09)
[2016-12-30] MEDS: NON-FORMULARY MEDICATION EACHEYE SCH ×4 (06:09→21:19)
[2016-12-30] MEDS: ACETAMINOPHEN 325 MG TABLET PO PRN ×2 (06:23→21:32)
--- NOTE | 2016-12-30 09:07 | PROGRESS NOTE: Orthopedics ---
Orthopedic PN Subjective - Subjective Principal Diagnosis: Post op hemiarthroplasty R hip Post-op Day: 8 Interval history: Feeling well. No new complaints Ortho PN Objective Exam - Latest Vital Signs and I&O Latest Vital Signs/I&O: Vital Signs Temp 36.9 C 12/30/16 07:00 Pulse 53 L 12/30/16 07:00 Resp 16 12/30/16 07:00 BP 138/54 12/30/16 07:00 Pulse Ox 96 12/30/16 07:00 Intake & Output 12/29/16 12/30/16 12/30/16 17:59 05:59 17:59 Intake Total 1795 225 Balance 1795 225 Weight 92.5 kg 88.592 kg Intake: Oral 1795 225 Other: Urine Appearance Clear Urine Color Yellow Stool Size Small Moderate Stool Characteristics Soft Soft Brown Formed Brown Voiding Method Toilet Toilet # Voids 3 # Bowel Movements 3 - Post-Operative Exam Incision: Present: clean and dry Active Motor: intact Sensation: intact Hilda's sign: Negative Calf tenderness: no - Lab Labs: Laboratory Last Values WBC 5.3 X 10^3uL (3.9-10.7) 12/27/16 05:00 RBC 3.45 X 10^6uL (4.20-6.10) L 12/27/16 05:00 Hgb 10.2 g/dL (12.0-16.0) L 12/27/16 05:00 Hct 30.5 % (36.0-48.0) L 12/27/16 05:00 MCV 88.3 fL (80.0-100.0) 12/27/16 05:00 MCH 29.6 pg (29.0-35.0) 12/27/16 05:00 MCHC 33.5 g/dL (32.0-36.0) 12/27/16 05:00 RDW 13.2 % (11.5-14.5) 12/27/16 05:00 Plt Count 215 X 10^3uL (130-440) 12/27/16 05:00 MPV 7.9 fL (7.4-10.4) 12/27/16 05:00 Neutrophils % 64.6 % (54.0-75.0) 12/27/16 05:00 Lymphocytes % 15.1 % (20.0-40.0) L 12/27/16 05:00 Eosinophils % 5.4 % (0.0-6.0) 12/27/16 05:00 Basophils % 0.7 % (0.0-2.0) 12/27/16 05:00 Neutrophils # 3.4 X 10^3uL (2.6-6.7) 12/27/16 05:00 Lymphocytes # 0.8 X 10^3uL (0.8-3.8) 12/27/16 05:00 Monocytes 14.2 % (2.0-10.0) H 12/27/16 05:00 Monocytes # 0.8 X 10^3uL (0.2-1.0) 12/27/16 05:00 Eosinophils # 0.3 X 10^3uL (0.0-0.4) 12/27/16 05:00 Basophils # 0.0 X 10^3uL (0.0-0.1) 12/27/16 05:00 PT 25.0 sec (13.0-16.6) H 12/27/16 05:00 Capillary INR 1.7 (0.8-1.2) H 12/30/16 06:50 INR 1.6 12/27/16 05:00 Sodium 141 mmol/L (137-145) 12/27/16 05:00 Potassium 4.0 mmol/L (3.5-5.1) 12/27/16 05:00 Chloride 107 mmol/L (98-107) 12/27/16 05:00 Carbon Dioxide 32 mmol/L (22-30) H 12/27/16 05:00 BUN 27 mg/dL (7-17) H D 12/27/16 05:00 Creatinine 1.0 mg/dL (0.5-1.0) 12/27/16 05:00 GFR Calculation Not Reportable 12/27/16 05:00 Glucose 96 mg/dL (70-100) 12/27/16 05:00 Calcium 8.5 mg/dL (8.4-10.2) 12/27/16 05:00 Urine Color Yellow 12/26/16 14:48 Urine Appearance Clear 12/26/16 14:48 Urine pH 5.5 (5-7) 12/26/16 14:48 Ur Specific [place] 1.020 (0.001-1.035) 12/26/16 14:48 Urine Protein 10mg/dl (trace) (NEG - TRACE) 12/26/16 14:48 Urine Ketones 5mg/dl (NEGATIVE) A 12/26/16 14:48 Urine Blood Negative (NEGATIVE) 12/26/16 14:48 Urine Nitrate Negative (NEGATIVE) 12/26/16 14:48 Urine Bilirubin Negative (NEGATIVE) 12/26/16 14:48 Urine Urobilinogen Normal (NEG-1mg/dL) 12/26/16 14:48 Ur Leukocyte Esterase Negative (NEGATIVE) 12/26/16 14:48 Urine RBC 0-5/hpf (0-5/hpf) 12/26/16 14:48 Urine WBC 0-4/hpf (0-4/hpf) 12/26/16 14:48 Ur Squamous Epith Cells 5-10/hpf (<= 15/hpf) 12/26/16 14:48 Calcium Oxalate Crystal Few (Occasional) A 12/26/16 14:48 Urine Bacteria None seen (<10/hpf) 12/26/16 14:48 Urine Mucus None seen (Up to 25%) 12/26/16 14:48 Urine Yeast Present (None Seen) A 12/26/16 14:48 Urine Glucose Normal (NEGATIVE) 12/26/16 14:48 Assessment and Plan-Ortho - Date of Encounter Date of Encounter: 12/30/16 (1) Fracture of femoral neck, right, closed Status: Acute Assessment and plan: Slowly improving with mobilization. Plan: Continue PT, work with ambulation and ADLs Current Visit: No
[2016-12-30] MEDS: ASCORBIC ACID 500 MG TABLET PO SCH (09:27)
[2016-12-30] MEDS: CALCIUM/VIT D 600 MG/400 IU 1 TAB TABLET PO SCH (09:27)
[2016-12-30] MEDS: MULTIVITAMINS THERAPEUTIC 1 TABLET PO SCH (09:28)
[2016-12-30] MEDS: ENALAPRIL MALEATE 5 MG TABLET PO SCH ×2 (09:28→21:16)
[2016-12-30] MEDS: DOCUSATE SODIUM 100 MG CAPSULE PO SCH ×2 (09:29→21:18)
[2016-12-30] MEDS: CELECOXIB 100 MG CAPSULE PO SCH ×2 (09:29→17:19)
[2016-12-30] MEDS: PRESERVISION AREDS 2 PO SCH ×2 (09:32→21:19)
[2016-12-30] MEDS: TIMOLOL 0.5% EACHEYE SCH (11:44)
[2016-12-30] MEDS ORDERED: WARFARIN SODIUM 2.5 MG TABLET PO ONE (16:00)
[2016-12-30] MEDS ORDERED: WARFARIN SODIUM 2.5 MG TABLET PO SCH (16:00)
[2016-12-30] MEDS: ATORVASTATIN CALCIUIM 40 MG TABLET PO SCH (21:18)
[2016-12-30] MEDS: traZODone HCL 50 MG TABLET PO PRN (21:19)
[2016-12-30] MEDS: LATANOPROST 0.005% EACHEYE SCH (21:19)
[2016-12-31] MEDS: ACETAMINOPHEN 325 MG TABLET PO PRN (05:54)
[2016-12-31] MEDS: LEVOTHYROXINE 75 MCG TABLET PO SCH (05:54)
[2016-12-31] MEDS: BRINZOLAMIDE 1% EACHEYE SCH ×3 (06:00→17:38)
[2016-12-31] MEDS: NON-FORMULARY MEDICATION EACHEYE SCH ×4 (06:00→22:01)
[2016-12-31] MEDS: BRIMONIDINE 0.1% EACHEYE SCH ×3 (06:00→17:28)
[2016-12-31] MEDS: CELECOXIB 100 MG CAPSULE PO SCH ×2 (09:44→17:12)
[2016-12-31] MEDS: MULTIVITAMINS THERAPEUTIC 1 TABLET PO SCH (09:44)
[2016-12-31] MEDS: PRESERVISION AREDS 2 PO SCH ×2 (09:44→22:01)
[2016-12-31] MEDS: ASCORBIC ACID 500 MG TABLET PO SCH (09:44)
[2016-12-31] MEDS: DOCUSATE SODIUM 100 MG CAPSULE PO SCH ×3 (09:44→22:00)
[2016-12-31] MEDS: CALCIUM/VIT D 600 MG/400 IU 1 TAB TABLET PO SCH (09:44)
[2016-12-31] MEDS: ENALAPRIL MALEATE 5 MG TABLET PO SCH ×2 (10:09→22:01)
[2016-12-31] MEDS: TIMOLOL 0.5% EACHEYE SCH (12:57)
[2016-12-31] MEDS: WARFARIN SODIUM 5 MG TABLET PO SCH (16:03)
[2016-12-31] MEDS: traZODone HCL 50 MG TABLET PO PRN (22:00)
[2016-12-31] MEDS: ATORVASTATIN CALCIUIM 40 MG TABLET PO SCH (22:01)
[2016-12-31] MEDS: LATANOPROST 0.005% EACHEYE SCH (22:01)
[2017-01-01] MEDS: LEVOTHYROXINE 75 MCG TABLET PO SCH (06:28)
[2017-01-01] MEDS: NON-FORMULARY MEDICATION EACHEYE SCH ×4 (06:28→21:10)
[2017-01-01] MEDS: BRIMONIDINE 0.1% EACHEYE SCH ×3 (06:28→17:31)
[2017-01-01] MEDS: BRINZOLAMIDE 1% EACHEYE SCH ×3 (06:28→17:31)
[2017-01-01] MEDS: ACETAMINOPHEN 325 MG TABLET PO PRN (06:41)
[2017-01-01] MEDS: PRESERVISION AREDS 2 PO SCH ×2 (08:01→21:10)
[2017-01-01] MEDS: CALCIUM/VIT D 600 MG/400 IU 1 TAB TABLET PO SCH ×2 (08:02→08:07)
[2017-01-01] MEDS: CELECOXIB 100 MG CAPSULE PO SCH ×2 (08:07→17:31)
[2017-01-01] MEDS: DOCUSATE SODIUM 100 MG CAPSULE PO SCH ×2 (08:08→21:10)
[2017-01-01] MEDS: ENALAPRIL MALEATE 5 MG TABLET PO SCH ×2 (08:08→21:10)
[2017-01-01] MEDS: MULTIVITAMINS THERAPEUTIC 1 TABLET PO SCH (08:08)
[2017-01-01] MEDS: ASCORBIC ACID 500 MG TABLET PO SCH (08:08)
[2017-01-01] MEDS: TIMOLOL 0.5% EACHEYE SCH (12:01)
[2017-01-01] MEDS: WARFARIN SODIUM 5 MG TABLET PO SCH (17:31)
[2017-01-01] MEDS: ATORVASTATIN CALCIUIM 40 MG TABLET PO SCH (21:10)
[2017-01-01] MEDS: traZODone HCL 50 MG TABLET PO PRN (21:10)
[2017-01-01] MEDS: LATANOPROST 0.005% EACHEYE SCH (21:11)
[2017-01-02] MEDS: ACETAMINOPHEN 325 MG TABLET PO PRN (04:20)
[2017-01-02] MEDS: LEVOTHYROXINE 75 MCG TABLET PO SCH (06:19)
[2017-01-02] MEDS: BRIMONIDINE 0.1% EACHEYE SCH ×3 (06:51→17:03)
[2017-01-02] MEDS: BRINZOLAMIDE 1% EACHEYE SCH ×3 (06:51→17:03)
[2017-01-02] MEDS: NON-FORMULARY MEDICATION EACHEYE SCH ×4 (06:51→20:42)
[2017-01-02 07:05] LABS: BLOOD UREA NITROGEN 26 mg/dL (7-17); CALCIUM 8.7 mg/dL (8.4-10.2); CHLORIDE 109 mmol/L (98-107); GLUCOSE 94 mg/dL (70-100); SODIUM 143 mmol/L (137-145)
[2017-01-02 07:12] LABS: INR 1.7
[2017-01-02 07:33] LABS: BASOPHIL# 0.1 X 10^3uL (0.0-0.1); BASOPHILS 0.9 % (0.0-2.0); EOSINOPHILS 5.2 % (0.0-6.0); EOSINOPHILS# 0.3 X 10^3uL (0.0-0.4); HEMATOCRIT 29.4 % (36.0-48.0); LYMPHOCYTES 14.4 % (20.0-40.0); MEAN CELL VOLUME 89.3 fL (80.0-100.0); MEAN CORPUS. HGB CONCENTRATION 34.1 g/dL (32.0-36.0); MEAN CORPUSCULAR HEMOGLOBIN 30.4 pg (29.0-35.0); MEAN PLATELET VOLUME 7.8 fL (7.4-10.4); MONOCYTES 8.7 % (2.0-10.0); MONOCYTES# 0.6 X 10^3uL (0.2-1.0); NEUTROPHILS 70.8 % (54.0-75.0); NEUTROPHILS# 4.6 X 10^3uL (2.6-6.7); PLATELET COUNT 341 X 10^3uL (130-440); RED BLOOD COUNT 3.29 X 10^6uL (4.20-6.10); RED CELL DISTRIBUTION WIDTH 13.7 % (11.5-14.5); WHITE BLOOD COUNT 6.6 X 10^3uL (3.9-10.7)
[2017-01-02] MEDS: CALCIUM/VIT D 600 MG/400 IU 1 TAB TABLET PO SCH (09:44)
[2017-01-02] MEDS: DOCUSATE SODIUM 100 MG CAPSULE PO SCH ×2 (09:44→20:41)
[2017-01-02] MEDS: PRESERVISION AREDS 2 PO SCH ×2 (09:44→20:42)
[2017-01-02] MEDS: CELECOXIB 100 MG CAPSULE PO SCH (09:44)
[2017-01-02] MEDS: MULTIVITAMINS THERAPEUTIC 1 TABLET PO SCH (09:44)
[2017-01-02] MEDS: ENALAPRIL MALEATE 5 MG TABLET PO SCH ×2 (09:44→20:41)
[2017-01-02] MEDS: ASCORBIC ACID 500 MG TABLET PO SCH (09:45)
[2017-01-02] MEDS: TIMOLOL 0.5% EACHEYE SCH (13:01)
[2017-01-02] MEDS ORDERED: WARFARIN SODIUM 5 MG TABLET PO SCH (13:55)
--- NOTE | 2017-01-02 14:15 | PROGRESS NOTE: IM APSO ---
Assessment and Plan - Date of Encounter Date of Encounter: 01/02/17 (1) Fracture of femoral neck, right, closed Status: Acute Assessment and plan: Status post ORIF. Now in swing bed for rehabilitation. Pain is well controlled. Making good progress with physical therapy and occupational therapy. Mild anemia postoperative is stable. Hemodynamically stable. INR is approaching therapeutic range. Anticipate discharge to home tomorrow with home health care and home PT. Current Visit: Yes (2) Afib Status: Chronic Assessment and plan: Current rate is acceptable. INR is slightly subtherapeutic, and warfarin will be adjusted again today. Current Visit: Yes (3) Hypertension Status: Chronic Assessment and plan: Stable. Current Visit: Yes (4) Hyperlipemia Status: Chronic Assessment and plan: Deferred to outpatient management. Current Visit: No (5) Chronic renal insufficiency Status: Chronic Assessment and plan: Renal function stable. Current Visit: Yes (6) Hypothyroid Status: Chronic Current Visit: No (7) Sick sinus syndrome Status: Chronic Current Visit: No (8) Adjustment disorder Status: Acute Assessment and plan: Doing well at this time without significant depression or anxiety. Follow clinically. She is using trazodone at night to help with her sleep. Current Visit: Yes (9) DVT prophylaxis Status: Acute Assessment and plan: Anticoagulated with warfarin. Slightly subtherapeutic. Adjusting dose today. Recheck in the morning. Current Visit: Yes - Time Spent With Patient Total time spent with greater than 50% in coordination of care (as documented) at patient's floor/unit and/or counseling patient: 16-24 minutes Estimated anticipated discharge: tomorrow IM: PN Subjective General: good appetite, pain (minimal discomfort in right upper leg), no fever, no chills Cardiovascular: no chest pain, no chest pressure, no palpitations Respiratory: cough (minimal), no sputum, no SOB Gastrointestinal: no abdominal pain, no nausea, no vomiting, no diarrhea Musculoskeletal: pain, swelling (bilateral lower extremities) Integumentary: no rashes Neurological: limb weakness (right lower extremity, improving), no headache, no numbness, no tingling IM: PN Objective Exam - I&O/Vital Signs I&O: Intake & Output 01/02/17 01/02/17 01/02/17 05:59 13:59 21:59 Intake Total 0 Output Total 500 1 Balance -500 -1 Weight 88.5 kg Intake: Oral 0 Output: Urine 500 Stool 1 Other: Urine Appearance Cloudy Cloudy Urine Color Light Rhina Light Rhina Stool Size Large Stool Characteristics Soft Brown Voiding Method Toilet Toilet # Voids 1 Vital Signs: Last Vital Signs Temp 36.6 C 01/02/17 07:00 Pulse 52 L 01/02/17 07:00 Resp 20 01/02/17 09:00 BP 112/62 01/02/17 07:00 Pulse Ox 90 01/02/17 11:04 Oxygen Flow Rate 0 Oxygen Delivery Method Room Air - Constitutional General appearance: Present: obese - Head Head exam: Present: atraumatic - Eye Eye exam: Present: EOMI - ENT ENT exam: Present: mucous membranes moist - Neck Neck exam: Present: full ROM. Absent: lymphadenopathy - Respiratory Respiratory exam: Present: CTAB. Absent: rales, rhonchi, wheezes - Cardiovascular Cardiovascular exam: Present: bradycardia (mild, currently regular). Absent: S3 , S4 - GI/Abdominal GI/Abdominal exam: Present: normal bowel sounds, soft. Absent: organomegaly, rebound, rigid, tenderness - Extremities Exam Extremities exam: Present: edema (1 plus, bilateral lower extremities). Absent : calf tenderness - Neurological Exam Neurological exam: Present: oriented X3 - Psychiatric Psychiatric exam: Present: normal mood. Absent: anxious, depressed, flat affect - Skin Skin exam: Absent: rash - Allied Health Notes Allied health notes reviewed: nursing, OT, PT - Lab Labs: Laboratory Last Values WBC 6.6 X 10^3uL (3.9-10.7) 01/02/17 05:00 RBC 3.29 X 10^6uL (4.20-6.10) L 01/02/17 05:00 Hgb 10.0 g/dL (12.0-16.0) L 01/02/17 05:00 Hct 29.4 % (36.0-48.0) L 01/02/17 05:00 MCV 89.3 fL (80.0-100.0) 01/02/17 05:00 MCH 30.4 pg (29.0-35.0) 01/02/17 05:00 MCHC 34.1 g/dL (32.0-36.0) 01/02/17 05:00 RDW 13.7 % (11.5-14.5) 01/02/17 05:00 Plt Count 341 X 10^3uL (130-440) 01/02/17 05:00 MPV 7.8 fL (7.4-10.4) 01/02/17 05:00 Neutrophils % 70.8 % (54.0-75.0) 01/02/17 05:00 Lymphocytes % 14.4 % (20.0-40.0) L 01/02/17 05:00 Eosinophils % 5.2 % (0.0-6.0) 01/02/17 05:00 Basophils % 0.9 % (0.0-2.0) 01/02/17 05:00 Neutrophils # 4.6 X 10^3uL (2.6-6.7) 01/02/17 05:00 Lymphocytes # 1.0 X 10^3uL (0.8-3.8) 01/02/17 05:00 Monocytes 8.7 % (2.0-10.0) 01/02/17 05:00 Monocytes # 0.6 X 10^3uL (0.2-1.0) 01/02/17 05:00 Eosinophils # 0.3 X 10^3uL (0.0-0.4) 01/02/17 05:00 Basophils # 0.1 X 10^3uL (0.0-0.1) 01/02/17 05:00 PT 27.2 sec (13.0-16.6) H 01/02/17 05:00 Capillary INR 1.7 (0.8-1.2) H 01/01/17 06:15 INR 1.7 01/02/17 05:00 Sodium 143 mmol/L (137-145) 01/02/17 05:00 Potassium 4.0 mmol/L (3.5-5.1) 01/02/17 05:00 Chloride 109 mmol/L (98-107) H 01/02/17 05:00 Carbon Dioxide 29 mmol/L (22-30) 01/02/17 05:00 BUN 26 mg/dL (7-17) H 01/02/17 05:00 Creatinine 0.9 mg/dL (0.5-1.0) 01/02/17 05:00 GFR Calculation Not Reportable 01/02/17 05:00 Glucose 94 mg/dL (70-100) 01/02/17 05:00 Calcium 8.7 mg/dL (8.4-10.2) 01/02/17 05:00 Urine Color Yellow 12/26/16 14:48 Urine Appearance Clear 12/26/16 14:48 Urine pH 5.5 (5-7) 12/26/16 14:48 Ur Specific [place] 1.020 (0.001-1.035) 12/26/16 14:48 Urine Protein 10mg/dl (trace) (NEG - TRACE) 12/26/16 14:48 Urine Ketones 5mg/dl (NEGATIVE) A 12/26/16 14:48 Urine Blood Negative (NEGATIVE) 12/26/16 14:48 Urine Nitrate Negative (NEGATIVE) 12/26/16 14:48 Urine Bilirubin Negative (NEGATIVE) 12/26/16 14:48 Urine Urobilinogen Normal (NEG-1mg/dL) 12/26/16 14:48 Ur Leukocyte Esterase Negative (NEGATIVE) 12/26/16 14:48 Urine RBC 0-5/hpf (0-5/hpf) 12/26/16 14:48 Urine WBC 0-4/hpf (0-4/hpf) 12/26/16 14:48 Ur Squamous Epith Cells 5-10/hpf (<= 15/hpf) 12/26/16 14:48 Calcium Oxalate Crystal Few (Occasional) A 12/26/16 14:48 Urine Bacteria None seen (<10/hpf) 12/26/16 14:48 Urine Mucus None seen (Up to 25%) 12/26/16 14:48 Urine Yeast Present (None Seen) A 12/26/16 14:48 Urine Glucose Normal (NEGATIVE) 12/26/16 14:48 (1) Fracture of femoral neck, right, closed Qualifiers: Encounter type: subsequent encounter Fracture healing: with routine healing Qualified Code(s): S72.001D - Fracture of unspecified part of neck of right femur, subsequent encounter for closed fracture with routine healing (2) Afib Qualifiers: Atrial fibrillation type: paroxysmal Qualified Code(s): I48.0 - Paroxysmal atrial fibrillation (3) Hypertension Qualifiers: Hypertension type: essential hypertension Qualified Code(s): I10 - Essential (primary) hypertension (4) Hyperlipemia Qualifiers: Hyperlipidemia type: unspecified Qualified Code(s): E78.5 - Hyperlipidemia, unspecified (5) Chronic renal insufficiency Qualifiers: Chronic kidney disease stage: unspecified stage Qualified Code(s): N18.9 - Chronic kidney disease, unspecified (6) Hypothyroid Qualifiers: 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
[2017-01-02] MEDS ORDERED: WARFARIN SODIUM 2.5 MG TABLET PO SCH (16:00)
[2017-01-02] MEDS ORDERED: BRIMONIDINE 0.1% OPHTHALMIC SCH (17:00)
[2017-01-02] MEDS ORDERED: BRINZOLAMIDE 1% OPHTHALMIC SCH (17:00)
[2017-01-02 18:47] VITALS: O2SAT 92
[2017-01-02] MEDS: traZODone HCL 50 MG TABLET PO PRN (20:42)
[2017-01-02] MEDS: LATANOPROST 0.005% EACHEYE SCH (20:42)
[2017-01-02] MEDS: ATORVASTATIN CALCIUIM 40 MG TABLET PO SCH (20:42)
[2017-01-02] MEDS ORDERED: ENALAPRIL MALEATE 5 MG TABLET PO SCH (21:00)
[2017-01-02] MEDS ORDERED: LATANOPROST 0.005% EACHEYE SCH (21:00)
[2017-01-03] MEDS: ACETAMINOPHEN 325 MG TABLET PO PRN (02:40)
[2017-01-03] MEDS: NON-FORMULARY MEDICATION EACHEYE SCH (06:07)
[2017-01-03] MEDS: BRIMONIDINE 0.1% EACHEYE SCH (06:07)
[2017-01-03] MEDS: BRINZOLAMIDE 1% EACHEYE SCH (06:07)
[2017-01-03] MEDS: LEVOTHYROXINE 75 MCG TABLET PO SCH (06:07)
[2017-01-03 07:03] VITALS: BP 151/71; PULSE 55; RESP 20; TEMP 97.9
--- NOTE | 2017-01-03 08:54 | DC SUMMARY: IM Note ---
Discharge Summary: IM/Peds Provider: Date of Admission: 12/26/16 Admitting Provider: MEGAN RONDON MD Attending Provider: MEGAN RONDON MD Discharging Provider: ALIS CESAR MD Primary Care Provider: Discharge Date: 01/03/17 Consults: 12/26/16 14:48 Nutrition/Dietary Consult [CONS] Routine Reason: Swingbed Admission Protocol - Diagnosis (1) Fracture of femoral neck, right, closed Status: Acute Qualifiers: Encounter type: subsequent encounter Fracture healing: with routine healing Qualified Code(s): S72.001D - Fracture of unspecified part of neck of right femur, subsequent encounter for closed fracture with routine healing (2) Afib Status: Chronic Qualifiers: Atrial fibrillation type: paroxysmal Qualified Code(s): I48.0 - Paroxysmal atrial fibrillation (3) Hypertension Status: Chronic Qualifiers: Hypertension type: essential hypertension Qualified Code(s): I10 - Essential (primary) hypertension (4) Hyperlipemia Status: Chronic Qualifiers: Hyperlipidemia type: unspecified Qualified Code(s): E78.5 - Hyperlipidemia , unspecified (5) Chronic renal insufficiency Status: Chronic Qualifiers: Chronic kidney disease stage: unspecified stage Qualified Code(s): N18.9 - Chronic kidney disease, unspecified (6) Hypothyroid Status: Chronic Qualifiers: 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 Worked consistently with physical therapy and occupational therapy and felt appropriate for discharge to home with home health care and home PT. Tylenol for pain. She was anticoagulated and warfarin dosing was titrated back to her baseline. INR was 1.9 at the time of discharge. With regard to other medical issues, she remained stable including atrial fibrillation, hypertension, sick sinus syndrome, adjustment disorder/anxiety. The plan is discharge to home with [facility]. She will follow up with orthopedic surgery in 1-2 weeks. She will follow-up with her primary Dr. Rondon in 2-4 weeks. - Time Spent with Patient Total time spent providing and/or coordinating discharge services: Time with patient DS: Less than 30 minutes Discharge - Patient/Caregiver Discharge Instructions Activity Level: As tolerated. Diet: Cardiac. Additional Instructions: Full weightbearing. May use your own LAURENCE hose. Avoid combination of flexing hip and bringing knee across midline. Follow up: VIPUL PUENTES MD [ACTIVE (Staff Physician)] - 2 Weeks MEGAN RONDON MD [Primary Care Provider] - 2 Weeks (2-4 weeks.) Overall discharge status: patient is progressing back to baseline Print Language: BELGIAN Home Medications: Ascorbic Acid [Acerola C] 500 mg PO DAILY #1 tab.chew traZODone HCL [Trazodone HCl*] 50 mg PO HS PRN #30 PRN Reason: Sleep/Insomnia Orders: Durable Medical Equipment Location: Determined By Patient Home Health Care Location: Determined By Patient Disposition: HOME HEALTH CARE Discharge Summary Data - Medication History Medication History: Home Medications Brimonidine 0.1% Ophth [Alphagan P 0.1% Ophth Soln*] 1 drop OPHTHALMIC 0700,1200 ,1700 12/20/16 Brinzolamide 1% Ophth [Azopt 1% Ophth Susp*] 1 drop OPHTHALMIC 0700,1200,1700 Enalapril Maleate [Vasotec*] 2.5 mg PO BID 12/20/16 Furosemide [Lasix*] 20 mg PO WEEKLY 12/20/16 Latanoprost 0.005% Ophth [Xalatan 0.005% Ophth Soln*] 1 drop EACHEYE HS Levothyroxine [Synthroid*] 75 mcg PO DAILY 12/20/16 Pilocarpine HCl 1 drop OPHTHALMIC 0700,1200,1700,2100 12/20/16 Timolol 0.5% Ophth [Timolol 0.5% Ophth Soln*] 1 drop EACHEYE DAILY@1200 Vit C/E/Zn/Coppr/Lutein/Zeaxan [Preservision Areds 2 Softgel] 1 tab PO DAILY Warfarin Sodium [Coumadin*] 5 mg PO [id number] 12/20/16 Warfarin Sodium [Coumadin] 7.5 mg PO 3XW 12/20/16 Acetaminophen [Tylenol*] 650 mg PO Q6H PRN #1 01/03/17 Ascorbic Acid [Acerola C] 500 mg PO DAILY #1 tab.chew 01/03/17 Atorvastatin Calcium [Lipitor*] 40 mg PO HS 01/03/17 Calcium/Vit D 600 mg/400 Iu [Calcium 600/Vitamin D 400] 1 tab PO DAILY 01/03/17 Levothyroxine [Synthroid*] 75 mcg PO 0630 01/03/17 Multivitamins,Therapeutic [Thera Multivitamin*] 1 tab PO DAILY 01/03/17 traZODone HCL [Trazodone HCl*] 50 mg PO HS PRN #30 01/03/17 Inpatient Medications 12/26/16 14:48 Acetaminophen [Tylenol] 650 mg PO Q6H PRN Bisacodyl [Dulcolax] 10 mg RECTAL PRN PRN Mag-Al Plus Xs Susp [Maalox Liquid] 5 ml PO Q2H PRN Magnesium Hydroxide [Milk of Magnesia] 30 ml PO DAILY PRN Polyethylene Glycol 3350 [miraLAX] 17 gm PO BID PRN hydroCODone/APAP 5/325 MG [[place]] 2 tab PO Q3H PRN 12/26/16 17:00 Brimonidine 0.1% Ophth [Alphagan P 0.1% Ophth Soln] 1 drop EACHEYE 0700,1200, 1700 Brinzolamide 1% Ophth [Azopt 1% Ophth Susp] 1 drop EACHEYE 0700,1200,1700 Non-Formulary Medication 1 EACHEYE 0700,1200,1700,2100 12/26/16 21:00 Atorvastatin Calcium [Lipitor] 40 mg PO HS Docusate Sodium [Colace] 100 mg PO BID Latanoprost 0.005% Ophth [Xalatan 0.005% Ophth Soln] 1 drop EACHEYE 209912/27/16 09:00 Ascorbic Acid [Vitamin C] 500 mg PO DAILY Calcium/Vit D 600 mg/400 Iu [Calcium 600/Vitamin D 400] 1 tab PO DAILY Multivitamins,Therapeutic [Thera] 1 tab PO DAILY 12/27/16 12:00 Timolol 0.5% Ophth [Timoptic 0.5% Ophth Soln] 1 drop EACHEYE 1200 12/27/16 21:00 Enalapril Maleate [Vasotec] 2.5 mg PO BID 12/28/16 06:30 Levothyroxine [Synthroid] [place] [address]/28/16 07:44 traZODone HCL [Desyrel] 50 mg PO HS PRN 12/28/16 09:00 Furosemide [Lasix] 20 mg PO WEEKLY 12/28/16 21:00 Non-Formulary Medication 1 PO BID 01/02/17 13:55 Warfarin Sodium [Coumadin] 5 mg PO ONCE DAILY @1600 01/02/17 16:00 Warfarin Sodium [Coumadin] 7.5 mg PO ONCE DAILY @1600 Procedures and tests throughout hospitalization: Completed Lab Orders 12/26/16 14:48 UA W/ MICRO -CULTURE IF IND [URINE] Routine 12/27/16 05:00 BASIC METABOLIC PANEL [CHEM] AMDRAW CBC AUTO DIF, MDIF/RMOR IF IND [HEM] AMDRAW PT/INR [PROTIME/INR] [HEM] AMDRAW 12/28/16 06:15 INR W/ CAPI DRAW [HEM] Stat 12/29/16 06:15 INR W/ CAPI DRAW [HEM] Stat 12/30/16 06:50 INR W/ CAPI DRAW [HEM] Routine 01/01/17 06:15 Finger Stick INR [INR W/ CAPI DRAW] [HEM] AMDRAW 01/02/17 05:00 BMP [BASIC METABOLIC PANEL] [CHEM] AMDRAW CBC AUTO DIF, MDIF/RMOR IF IND [HEM] AMDRAW PROTIME/INR [HEM] AMDRAW 01/03/17 06:00 Finger Stick INR [INR W/ CAPI DRAW] [HEM] AMDRAW Pending Orders 12/26/16 14:48 Admit: Swing Bed Routine VTE Prophylaxis Scoring/ Ordering Routine Activity: Ambulate with Assist TID Activity: Hip Abductor Pillow WHILE IN BED Activity: OOB with Assist TID Cleanse minor skin tears w/NS PRN Cover minor skin tears with DAILYPRN Obtain weight 0600 Titrate Oxygen TITRATE TO >90% Wedge cushion for positioning PRN Translator Deaf Consult [CM] Routine Acetaminophen [Tylenol] 650 mg PO Q6H PRN Bisacodyl [Dulcolax] 10 mg RECTAL PRN PRN Mag-Al Plus Xs Susp [Maalox Liquid] 5 ml PO Q2H PRN Magnesium Hydroxide [Milk of Magnesia] 30 ml PO DAILY PRN Polyethylene Glycol 3350 [miraLAX] 17 gm PO BID PRN hydroCODone/APAP 5/325 MG [[place]] 2 tab PO Q3H PRN Occupation Therapy Eval and Treat [OT] Routine Physical Therapy Eval and Treatment [PT] Routine 12/26/16 17:00 Brimonidine 0.1% Ophth [Alphagan P 0.1% Ophth Soln] 1 drop EACHEYE 0700,1200, 1700 Brinzolamide 1% Ophth [Azopt 1% Ophth Susp] 1 drop EACHEYE 0700,1200,1700 Non-Formulary Medication 1 EACHEYE 0700,1200,1700,2100 12/26/16 21:00 Atorvastatin Calcium [Lipitor] 40 mg PO HS Docusate Sodium [Colace] 100 mg PO BID Latanoprost 0.005% Ophth [Xalatan 0.005% Ophth Soln] 1 drop EACHEYE 2100 12/26/16 21:57 CODE [Resuscitation Status] Routine 12/26/16 Dinner Regular [DIET] 12/27/16 09:00 Ascorbic Acid [Vitamin C] 500 mg PO DAILY Calcium/Vit D 600 mg/400 Iu [Calcium 600/Vitamin D 400] 1 tab PO DAILY Multivitamins,Therapeutic [Thera] 1 tab PO DAILY 12/27/16 12:00 Timolol 0.5% Ophth [Timoptic 0.5% Ophth Soln] 1 drop EACHEYE 1200 12/27/16 21:00 Enalapril Maleate [Vasotec] 2.5 mg PO BID 12/28/16 06:30 Levothyroxine [Synthroid] [place] [address]/28/16 07:44 traZODone HCL [Desyrel] 50 mg PO HS PRN 12/28/16 09:00 Furosemide [Lasix] 20 mg PO WEEKLY 12/28/16 21:00 Non-Formulary Medication 1 PO BID 01/02/17 13:55 Warfarin Sodium [Coumadin] 5 mg PO ONCE DAILY @1600 01/02/17 16:00 Warfarin Sodium [Coumadin] 7.5 mg PO ONCE DAILY @1600 Labs on day of discharge: Labs from last 24 hours 01/03/17 06:00 Capillary INR 1.9 H IM: Discharge Physical Exam - I&O/Vital Signs I&O: Intake & Output 01/02/17 01/03/17 01/03/17 21:59 05:59 13:59 Intake Total 1110 Output Total 1 Balance 1110 -1 Intake: Oral 1110 Output: Stool 1 Other: Stool Size Large Stool Characteristics Soft Brown Vital Signs: Last Vital Signs Temp 36.6 C 01/03/17 07:00 Pulse 55 L 01/03/17 07:00 Resp 20 01/03/17 07:00 BP 151/71 01/03/17 07:00 Pulse Ox 92 01/03/17 07:00 Oxygen Flow Rate 0 Oxygen Delivery Method Room Air - Constitutional General appearance: Present: obese - Head Head exam: Present: atraumatic - Eye Eye exam: Present: EOMI - ENT ENT exam: Present: mucous membranes moist - Neck Neck exam: Present: full ROM. Absent: lymphadenopathy - Respiratory Respiratory exam: Present: CTAB. Absent: rales, rhonchi, wheezes - Cardiovascular Cardiovascular exam: Present: bradycardia (mild, currently regular). Absent: S3 , S4 - GI/Abdominal GI/Abdominal exam: Present: normal bowel sounds, soft. Absent: organomegaly, rebound, rigid, tenderness - Extremities Exam Extremities exam: Present: edema (1 plus, bilateral lower extremities). Absent : calf tenderness - Neurological Exam Neurological exam: Present: oriented X3 - Psychiatric Psychiatric exam: Present: normal mood. Absent: anxious, depressed, flat affect - Skin Skin exam: Absent: rash - Allied Health Notes Allied health notes reviewed: nursing, OT, PT
[2017-01-03] MEDS: MULTIVITAMINS THERAPEUTIC 1 TABLET PO SCH (09:00)
[2017-01-03] MEDS: DOCUSATE SODIUM 100 MG CAPSULE PO SCH (09:00)
[2017-01-03] MEDS ORDERED: LEVOTHYROXINE 75 MCG TABLET PO SCH (09:00)
[2017-01-03] MEDS: CALCIUM/VIT D 600 MG/400 IU 1 TAB TABLET PO SCH (09:00)
[2017-01-03] MEDS: PRESERVISION AREDS 2 PO SCH (09:00)
[2017-01-03] MEDS ORDERED: FUROSEMIDE 20 MG TABLET PO SCH (09:00)
[2017-01-03] MEDS: ENALAPRIL MALEATE 5 MG TABLET PO SCH (09:00)
[2017-01-03] MEDS: ASCORBIC ACID 500 MG TABLET PO SCH (09:01)
[2017-01-03] MEDS ORDERED: TIMOLOL 0.5% EACHEYE SCH (12:00)
== END 2017-01-03 08:53 | disposition home health service (06) | DRG 561 ==
LOC: IN 14:47
PROVIDERS: ADMIT Internal Medicine; ATTEND Internal Medicine
DX: S72.041D Displaced fracture of base of neck of right femur, subsequent encounter for closed fracture with routine healing (principal); I48.2 Chronic atrial fibrillation; I12.9 Hypertensive chronic kidney disease with stage 1 through stage 4 chronic kidney disease, or unspecified chronic kidney disease; I49.5 Sick sinus syndrome; F43.21 Adjustment disorder with depressed mood; M54.5 Low back pain; M85.89 Other specified disorders of bone density and structure, multiple sites; Z86.73 Personal history of transient ischemic attack (TIA), and cerebral infarction without residual deficits; N18.9 Chronic kidney disease, unspecified; M35.3 Polymyalgia rheumatica; R31.21 Asymptomatic microscopic hematuria; Z85.3 Personal history of malignant neoplasm of breast; Z79.899 Other long term (current) drug therapy; Z79.01 Long term (current) use of anticoagulants
CPT/HCPCS: 36415; 80048; 81001; 85025; 85610; 94760; J1650